=== PATIENT | male | born 1930 | race Caucasian/White ===

== ENCOUNTER → 2016-11-26 | Outpatient (CLI) | payer OTHER ==
[~2016-11-26] MED LIST: ASPEC81 PO; CALC600T9 PO; CIPR1TAB11 PO; CPR500 PO; CPR500HP PO; FIBER PO; FOLI1TAB7 PO; METO5TAB3 PO; METR-163 PO; MULT-506 PO; NUTR-977 PO; OMEP20TA PO; TAMS0.4C38 PO; TAMS0.4C59 PO; ULT50X PO; URSO300C4 PO; ZOLE5INJ
== END | disposition home or self-care (01) ==
LOC: C.LAB1850 13:51
PROVIDERS: ATTEND Internal Medicine Pulmonary Disease
DX: M34.1 CR(E)ST syndrome (principal); J84.10 Pulmonary fibrosis, unspecified

== ENCOUNTER 2016-12-11 16:44 | Emergency (ER) | payer OTHER ==
[~2016-12-11] VITALS: Ht 162.6 cm; Wt 66.8 kg
[~2016-12-11 16:44] MED LIST changes: -ASPEC81 PO; -CIPR1TAB11 PO; -CPR500 PO; -CPR500HP PO; -METO5TAB3 PO; -METR-163 PO; -TAMS0.4C38 PO; -ULT50X PO
[2016-12-11 16:47] VITALS: TEMP 36.7; Ht 162.6 cm; Wt 66.8 kg
--- NOTE | 2016-12-11 17:20 | EMERGENCY ROOM VISIT NOTE ---
History Report prepared by Wale: Kwabena Cesar Under the Supervision of: Dr. Edith Lynne M.D. First contact with patient: 16:57 Chief Complaint: ABDOMINAL PAIN Stated Complaint: R SIDE ABD. PAIN, NAUSEA, PAIN RADIATED TO CHEST History of Present Illness The patient is an 86 year old male who presents to the Emergency Room with complaints of an episode of abdominal pain that occurred around 4 hours ago. He says he has trouble with his liver, and today was another "attack". The patient notes that he was lying down when the pain started, and the pain shortly started radiating into his chest. He says the pain went away fairly quickly. He was sitting on his commode for a while during the episode, as he thought he had to go to the bathroom, but he could not. The patient currently has no more pain. He states that he knows what this pain feels like and this is similar to previous episodes of pain he had due to his liver troubles. The patient denies any fevers. Per the patient's family, the patient has a history of biliary sludge and gall stones. The patient tends to get clogged up every 6 months, and he has an ERCP done every 6 months to get cleaned out. During the last 2 episodes, the patient ended up going septic. The patient had a culture of his blood and bacteria was found. He had an infection near the opening of his bile duct into his intestine and was hospitalized both times. During his last episode , a PICC line was attempted to be inserted, but the doctors were unable to do so. The patient was in intensive nursing for 10 days and there was trouble figuring out which antibiotic to use. Source of History: patient, family Onset: Around 4 hours ago Position: abdomen Symptom Intensity: episode was fairly quick Timing: other (episode) Associated Symptoms: + chest pain, No fevers Note: Associated symptoms: No other associated symptoms noted. Review of Systems See HPI for pertinent positives & negatives. A total of 10 systems reviewed and were otherwise negative. Past Medical & Surgical Medical Problems: (1) Acid reflux (2) Anemia (3) bactremia with G neg , source is likely biliary track infection, (4) CREST syndrome (5) Pancreatitis (6) Repair of inguinal hernia (7) RUQ abdominal pain Surgical Problems: (1) History of appendectomy (2) History of cholecystectomy (3) History of knee replacement Family History Diabetes mellitus Stroke Social History Smoking Status: Never Smoker Alcohol Use: none Drug Use: none Marital Status: Housing Status: lives with family Occupation Status: retired Current/Historical Medications Scheduled Calcium Carbonate-Vitamin D (Calcium + D), 1 TAB PO DAILY Enteral Nutrition Formula (Ensure Plus Vanilla), 1 CAN PO DAILY Folic Acid (Folvite), 1 MG PO QAM Multivitamin (Multivitamin), 1 TAB PO QAM Omeprazole (Omeprazole), 20 MG PO BID Tamsulosin Hcl (Flomax), 0.4 MG PO HS Ursodiol (Actigall), 300 MG PO BID Zoledronic Acid (Reclast), 1 DOSE YEARLY Scheduled PRN Ciprofloxacin (Ciprofloxacin HCl), 1 TAB PO DIRECTED PRN for Pain Fiber Laxative (Fiber Laxative), 1 DOSE PO DAILY PRN for Constipation Allergies Coded Allergies: Penicillins (Verified Allergy, Unknown, UNKNOWN, 12/11/16) Physical Exam Vital Signs Date Time Temp Pulse Resp B/P Pulse Ox O2 Delivery O2 Flow Rate FiO2 12/11/16 19:47 70 20 158/90 97 12/11/16 18:50 68 20 148/76 93 Room Air 12/11/16 16:47 36.7 88 18 153/90 94 Room Air Physical Exam CONSTITUTIONAL: No acute distress, nontoxic. HEENT: No icterus, moist mucous membranes NECK: No meningismus, trachea is midline. CARDIOVASCULAR: Regular rate, normal perfusion RESPIRATORY: Unlabored breathing. Clear to auscultation. GASTROINTESTINAL: Non-tender GENITOURINARY: No flank tenderness MUSCULOSKELETAL: Full range of motion NEUROLOGIC: No acute gross focal deficits. PSYCHIATRIC: Normal affect SKIN: Normal for ethnicity. Medical Decision & Procedures Laboratory Results 12/11/16 17:38 Red Blood Count 4.36, Mean Corpuscular Volume 90.1, Mean Corpuscular Hemoglobin 29.6, Mean Corpuscular Hemoglobin Concent 32.8, Mean Platelet Volume 9.6, Neutrophils (%) (Auto) 62.2, Lymphocytes (%) (Auto) 18.3, Monocytes (%) (Auto) 13.7, Eosinophils (%) (Auto) 5.0, Basophils (%) (Auto) 0.5, Neutrophils # (Auto ) 4.08, Lymphocytes # (Auto) 1.20, Monocytes # (Auto) 0.90, Eosinophils # (Auto ) 0.33, Basophils # (Auto) 0.03 Test 12/11/16 17:38 12/11/16 18:19 White Blood Count 6.56 K/uL (4.8-10.8) Red Blood Count 4.36 M/uL (4.7-6.1) Hemoglobin 12.9 g/dL (14.0-18.0) Hematocrit 39.3 % (42-52) Mean Corpuscular Volume 90.1 fL (80-100) Mean Corpuscular Hemoglobin 29.6 pg (25-34) Mean Corpuscular Hemoglobin Concent 32.8 g/dl (32-36) Platelet Count 245 K/uL (130-400) Mean Platelet Volume 9.6 fL (7.4-10.4) Neutrophils (%) (Auto) 62.2 % Lymphocytes (%) (Auto) 18.3 % Monocytes (%) (Auto) 13.7 % Eosinophils (%) (Auto) 5.0 % Basophils (%) (Auto) 0.5 % Neutrophils # (Auto) 4.08 K/uL (1.4-6.5) Lymphocytes # (Auto) 1.20 K/uL (1.2-3.4) Monocytes # (Auto) 0.90 K/uL (0.11-0.59) Eosinophils # (Auto) 0.33 K/uL (0-0.5) Basophils # (Auto) 0.03 K/uL (0-0.2) RDW Standard Deviation 54.4 fL (36.4-46.3) RDW Coefficient of Variation 16.4 % (11.5-14.5) Immature Granulocyte % (Auto) 0.3 % Immature Granulocyte # (Auto) 0.02 K/uL (0.00-0.02) Total Bilirubin 0.5 mg/dl (0.2-1) Direct Bilirubin 0.1 mg/dl (0-0.2) Aspartate Amino Transf (AST/SGOT) 40 U/L (15-37) Alanine Aminotransferase (ALT/SGPT) 26 U/L (12-78) Alkaline Phosphatase 65 U/L (45-117) C-Reactive Protein < 0.29 mg/dl (0-0.29) Total Protein 6.9 gm/dl (6.4-8.2) Albumin 3.6 gm/dl (3.4-5.0) Lipase 170 U/L (73-393) Procalcitonin < 0.05 ng/mL (0-0.5) Urine Color YELLOW Urine Appearance CLEAR (CLEAR) Urine pH 6.0 (4.5-7.5) Urine Specific [place] 1.012 (1.000-1.030) Urine Protein NEG (NEG) Urine Glucose (UA) NEG (NEG) Urine Ketones NEG (NEG) Urine Occult Blood NEG (NEG) Urine Nitrite NEG (NEG) Urine Bilirubin NEG (NEG) Urine Urobilinogen NEG (NEG) Urine Leukocyte Esterase NEG (NEG) Labs reviewed by ED physician. ED Course 1705: Past medical records reviewed. The patient was evaluated in room C3. A complete history and physical examination was performed. 1921: I reevaluated the patient and he is resting comfortably. The patient verbally expressed agreement and understanding of the treatment plan. The patient will be discharged. Medical Decision Differential diagnoses include: sepsis, biliary disease. 86-year-old was brought to the emergency department by family for concern over potential bacteremia or biliary complications. He is noted to have a history of crest as well as bacteremia secondary to sludging of the biliary system. He noted of the nonspecific discomfort of the right upper quadrant earlier today which is now resolved. He appears in no distress with no abdominal tenderness on serial exam the emergency room. Given clinical context and family's concerns around patient's history and labwork including CRP and pro calcitonin were ordered. It is noted the CBC as well as differential, pro calcitonin CRP were all completely normal and patient remained without any symptomatic complaints during emergency Department course was benign abdomen prior to discharge., Given copy of today's laboratory results advised to follow-up with primary care doctor or return for any worsening or worrisome symptoms. Impression Primary Impression: CREST syndrome Scribe Attestation The scribe's documentation has been prepared under my direction and personally reviewed by me in its entirety. I confirm that the note above accurately reflects all work, treatment, procedures, and medical decision making performed by me. Departure Information Dispostion Home / Self-Care Referrals Román Miranda M.D. (PCP) Forms HOME CARE DOCUMENTATION FORM, IMPORTANT VISIT INFORMATION Patient Instructions Abdominal Pain - [facility], [facility]
[2016-12-11] MEDS ORDERED: CPR500HP PO (17:57)
[2016-12-11 18:16] LABS: BASO % 0.5 %; BASO ABS # 0.03 K/uL (0-0.2); COMPLETE YES; HEMATOCRIT 39.3 % (42-52); IG% 0.3 %; LYMPH % 18.3 %; MEAN CELL VOLUME 90.1 fL (80-100); MEAN CORPUSCULAR HEMOGLOBIN 29.6 pg (25-34); MEAN CORPUSCULAR HGB CONC 32.8 g/dl (32-36); MEAN PLATELET VOLUME 9.6 fL (7.4-10.4); MONO % 13.7 %; NEUT % 62.2 %; PLATELET COUNT 245 K/uL (130-400); RED BLOOD COUNT 4.36 M/uL (4.7-6.1); WHITE BLOOD COUNT 6.56 K/uL (4.8-10.8)
[2016-12-11 18:38] LABS: ALKALINE PHOSPHATASE 65 U/L (45-117); ALT/SGPT 26 U/L (12-78); AST/SGOT 40 U/L (15-37); C-REACTIVE PROTEIN < 0.29 mg/dl (0-0.29)
[2016-12-11 18:40] LABS: URINE APPEARANCE CLEAR (CLEAR); URINE BILIRUBIN NEG (NEG); URINE COLOR YELLOW; URINE NITRITE NEG (NEG); URINE SPECIFIC GRAVITY 1.012 (1.000-1.030); UROBILINOGEN NEG (NEG); ZZUR CULT IF INDIC CLEAN CATCH NO
[2016-12-11 18:48] LABS: MANUAL MICROSCOPIC REQUIRED? NO; REVIEW REQ? NO
[2016-12-11 19:47] VITALS: BP 158/90; PULSE 70; O2SAT 97
[2017-07-23] MEDS ORDERED: METR-163 PO (14:30)
[2017-07-23] MEDS ORDERED: CPR500 PO (14:30)
== END 2016-12-11 19:51 | disposition home or self-care (01) ==
LOC: C.EDB 16:46 → C.EDC 19:51
DX: M34.1 CR(E)ST syndrome (principal); Z90.89 Acquired absence of other organs; Z90.49 Acquired absence of other specified parts of digestive tract; Z96.659 Presence of unspecified artificial knee joint; Z83.3 Family history of diabetes mellitus; Z82.3 Family history of stroke; Z88.0 Allergy status to penicillin

== ENCOUNTER 2017-01-26 12:37 | Inpatient (IN) | payer OTHER ==
[~2017-01-26] VITALS: Ht 162.6 cm; Wt 64.0 kg
[~2017-01-26 12:37] MED LIST changes: +CPR500HP PO
[2017-01-26] MEDS ORDERED: SODIUM CHLORIDE 0.9% 1000ML 1,000 ML IV SCH (13:15)
[2017-01-26 13:22] LABS: URINE APPEARANCE CLEAR (CLEAR); URINE BILIRUBIN NEG (NEG); URINE COLOR YELLOW; URINE NITRITE NEG (NEG); URINE SPECIFIC GRAVITY 1.014 (1.000-1.030); UROBILINOGEN NEG (NEG); ZZUR CULT IF INDIC CLEAN CATCH NO
[2017-01-26 13:27] LABS: MANUAL MICROSCOPIC REQUIRED? NO; REVIEW REQ? NO
--- NOTE | 2017-01-26 13:30 | EMERGENCY ROOM VISIT NOTE ---
History Report prepared by Wale: Judie Garsia Under the Supervision of: Dr. Luis Newell D.O. First contact with patient: 12:42 Chief Complaint: VOMITING Stated Complaint: CHILLS, VOMITING, NAUSEA Nursing Triage Summary: Triage Note: Pt reports since yesterday he has had a sensation in his right lower abd "it is uncomfortable it is not pain." pt reports nausea and vomitting. daughter reports yesterday pt told her he had "indigestion." History of Present Illness The patient is a 86 year old male who presents to the Emergency Room with complaints of intermittent vomiting beginning yesterday. The patient reports that he has had some discomfort in his lower right abdomen. The patient complains of nausea, chills, indigestion, ongoing cough for a few months, and right sided chest pain yesterday. He denies any diarrhea and blood in the stool. The patient's daughter reports that the patient recently had an ERCP to dilate the bile duct. She notes that he has a history of osteoporosis, pancreatitis, cholecystectomy, sludgy bile, appendectomy, and gallstones that he has had trouble with recently. He notes that he is not having any nausea or pain currently. Source of History: patient, family Onset: yesterday Position: other (global) Quality: other (vomiting) Timing: intermittent Associated Symptoms: + chest pain, + chills, + cough, + nausea, No diarrhea Note: The patient complains of indigestion. He denies any blood in the stool. Review of Systems See above for pertinent positives & negatives. A total of 10 systems reviewed and were otherwise negative. Past Medical & Surgical Medical Problems: (1) Acid reflux (2) Anemia (3) bactremia with G neg , source is likely biliary track infection, (4) CREST syndrome (5) Pancreatitis (6) Repair of inguinal hernia (7) RUQ abdominal pain Surgical Problems: (1) History of appendectomy (2) History of cholecystectomy (3) History of knee replacement Family History Diabetes mellitus Stroke Social History Smoking Status: Never Smoker Alcohol Use: none Drug Use: none Marital Status: Housing Status: lives with family Occupation Status: retired Current/Historical Medications Scheduled Calcium Carbonate-Vitamin D (Calcium + D), 1 TAB PO DAILY Enteral Nutrition Formula (Ensure Plus Vanilla), 1 CAN PO DAILY Folic Acid (Folvite), 1 MG PO QAM Multivitamin (Multivitamin), 1 TAB PO QAM Omeprazole (Omeprazole), 20 MG PO BID Tamsulosin Hcl (Flomax), 0.4 MG PO HS Ursodiol (Actigall), 300 MG PO BID Zoledronic Acid (Reclast), 1 DOSE YEARLY Scheduled PRN Ciprofloxacin (Ciprofloxacin HCl), 1 TAB PO DIRECTED PRN for Pain Fiber Laxative (Fiber Laxative), 1 DOSE PO DAILY PRN for Constipation Allergies Coded Allergies: Penicillins (Verified Allergy, Unknown, UNKNOWN, 12/11/16) Physical Exam Vital Signs Date Time Temp Pulse Resp B/P Pulse Ox O2 Delivery O2 Flow Rate FiO2 01/26/17 14:13 96 18 147/88 96 Room Air 01/26/17 13:44 93 01/26/17 12:44 37.1 81 18 148/61 100 Room Air Medical Decision & Procedures ER Provider Diagnostic Interpretation: X ray results and stated below per my interpretation and radiologist interpretation. ABDOMEN 2VIEW W/PA CHEST RTN FINDINGS: The heart is mildly enlarged. There is aortic tortuosity/ectasia. There is interstitial pleural fibrosis. There is no acute lobar consolidation. There are no pleural effusions. There is no overt failure. IMPRESSION: Interstitial fibrotic changes, likely chronic. No evidence of acute parenchymal consolidation Electronically signed by: Charly Duran M.D. 01/26/2017 2:28 PM Dictated Date/Time: 01/26/2017 2:28 PM Laboratory Results 01/26/17 13:20 Red Blood Count 4.76, Mean Corpuscular Volume 87.6, Mean Corpuscular Hemoglobin 29.2, Mean Corpuscular Hemoglobin Concent 33.3, Mean Platelet Volume 9.2, Neutrophils (%) (Auto) 93.2, Lymphocytes (%) (Auto) 3.3, Monocytes (%) (Auto) 3.1, Eosinophils (%) (Auto) 0.1, Basophils (%) (Auto) 0.1, Neutrophils # (Auto) 8.82, Lymphocytes # (Auto) 0.31, Monocytes # (Auto) 0.29, Eosinophils # (Auto) 0.01, Basophils # (Auto) 0.01 01/26/17 13:20 Test 01/26/17 12:56 01/26/17 13:20 Urine Color YELLOW Urine Appearance CLEAR (CLEAR) Urine pH 7.0 (4.5-7.5) Urine Specific [place] 1.014 (1.000-1.030) Urine Protein NEG (NEG) Urine Glucose (UA) NEG (NEG) Urine Ketones NEG (NEG) Urine Occult Blood NEG (NEG) Urine Nitrite NEG (NEG) Urine Bilirubin NEG (NEG) Urine Urobilinogen NEG (NEG) Urine Leukocyte Esterase NEG (NEG) White Blood Count 9.46 K/uL (4.8-10.8) Red Blood Count 4.76 M/uL (4.7-6.1) Hemoglobin 13.9 g/dL (14.0-18.0) Hematocrit 41.7 % (42-52) Mean Corpuscular Volume 87.6 fL (80-100) Mean Corpuscular Hemoglobin 29.2 pg (25-34) Mean Corpuscular Hemoglobin Concent 33.3 g/dl (32-36) Platelet Count 244 K/uL (130-400) Mean Platelet Volume 9.2 fL (7.4-10.4) Neutrophils (%) (Auto) 93.2 % Lymphocytes (%) (Auto) 3.3 % Monocytes (%) (Auto) 3.1 % Eosinophils (%) (Auto) 0.1 % Basophils (%) (Auto) 0.1 % Neutrophils # (Auto) 8.82 K/uL (1.4-6.5) Lymphocytes # (Auto) 0.31 K/uL (1.2-3.4) Monocytes # (Auto) 0.29 K/uL (0.11-0.59) Eosinophils # (Auto) 0.01 K/uL (0-0.5) Basophils # (Auto) 0.01 K/uL (0-0.2) RDW Standard Deviation 52.5 fL (36.4-46.3) RDW Coefficient of Variation 16.3 % (11.5-14.5) Immature Granulocyte % (Auto) 0.2 % Immature Granulocyte # (Auto) 0.02 K/uL (0.00-0.02) Red Blood Cell Morphology Unremarkable Anion Gap 13.0 mmol/L (3-11) Est Creatinine Clear Calc Drug Dose 45.5 ml/min Estimated GFR () 83.6 Estimated GFR (Non- 72.1 BUN/Creatinine Ratio 17.1 (10-20) Calcium Level 9.3 mg/dl (8.5-10.1) Total Bilirubin 2.6 mg/dl (0.2-1) Direct Bilirubin 1.4 mg/dl (0-0.2) Aspartate Amino Transf (AST/SGOT) 545 U/L (15-37) Alanine Aminotransferase (ALT/SGPT) 255 U/L (12-78) Alkaline Phosphatase 137 U/L (45-117) Troponin I < 0.015 ng/ml (0-0.045) Total Protein 7.5 gm/dl (6.4-8.2) Albumin 3.7 gm/dl (3.4-5.0) Lipase 170 U/L (73-393) Hepatitis B Surface Antigen NEG (NEG) Laboratory results as reviewed by me. Medications Administered Medications (Trade) Dose Ordered Sig/Alycia Route Start Time Stop Time Status Last Admin Dose Admin Sodium Chloride (Nss 1000ml) 1,000 ml @ 999 mls/hr Q1H1M IV 01/26/17 13:15 01/26/17 14:54 DC 01/26/17 13:26 999 MLS/HR ECG Indication: chest pain Rate (beats per minute): 100 Rhythm: sinus tachycardia Findings: nonspecific-ST abn (Inferior), left axis deviation ED Course 1250: The patient was evaluated in room C7. A complete history and physical exam was performed. 1315: Sodium Chloride 1000 ml @ 999 mls/hr IV. Medical Decision Differential diagnosis: Etiologies such as appendicitis, diverticulitis, PUD, biliary pathology, UTI, pancreatitis, obstruction, mesenteric ischemia, aortic pathology, infections, inflammatory bowel disease, renal colic, as well as others were entertained. 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 He was recently seen for an ERCP last week, he presents today with a complaint of generalized fatigue and nausea with occasional vomiting. Laboratory examination today revealed transaminitis concerning for ascending cholangitis, this point I have obtained a ultrasound of the abdomen, administered Zosyn 4.5 mg, and consult to Dr. Tomlin of [facility], and personally spoke with his PA regarding evaluation today in the hospital. I discussed the case with Dr. Gabriel Kedum of the hospitalist team who will admit the patient. Impression Primary Impression: Cholangitis Additional Impressions: Hx of cholecystectomy Nausea, vomiting, and diarrhea Scribe Attestation The scribe's documentation has been prepared under my direction and personally reviewed by me in its entirety. I confirm that the note above accurately reflects all work, treatment, procedures, and medical decision making performed by me. Departure Information Dispostion Being Evaluated By Hospitalist Referrals Román Miranda M.D. (PCP) Patient Instructions My [facility] Problem Qualifiers
[2017-01-26 13:42] LABS: HEMATOCRIT 41.7 % (42-52); MEAN CELL VOLUME 87.6 fL (80-100); MEAN CORPUSCULAR HEMOGLOBIN 29.2 pg (25-34); MEAN CORPUSCULAR HGB CONC 33.3 g/dl (32-36); MEAN PLATELET VOLUME 9.2 fL (7.4-10.4); PLATELET COUNT 244 K/uL (130-400); RED BLOOD COUNT 4.76 M/uL (4.7-6.1); WHITE BLOOD COUNT 9.46 K/uL (4.8-10.8)
[2017-01-26 14:00] LABS: ALT/SGPT 255 U/L (12-78); BLOOD UREA NITROGEN 16 mg/dl (7-18); BUN/CREATININE RATIO 17.1 (10-20); CALCIUM 9.3 mg/dl (8.5-10.1); CARBON DIOXIDE 25 mmol/L (21-32); CHLORIDE 102 mmol/L (98-107); CREATININE 0.94 mg/dl (0.60-1.40); GLUCOSE 112 mg/dl (70-99); SODIUM 140 mmol/L (136-145)
[2017-01-26 14:04] LABS: ALKALINE PHOSPHATASE 137 U/L (45-117); AST/SGOT 545 U/L (15-37)
[2017-01-26 14:07] LABS: BASO % 0.1 %; BASO ABS # 0.01 K/uL (0-0.2); COMPLETE YES; EOS % 0.1 %; IG% 0.2 %; LYMPH % 3.3 %; LYMPH ABS # 0.31 K/uL (1.2-3.4); MONO % 3.1 %; NEUT % 93.2 %
--- NOTE | 2017-01-26 14:30 | DIAGNOSTIC IMAGING REPORT ---
ABDOMEN 2VIEW W/PA CHEST RTN CLINICAL HISTORY: Nausea, vomiting, malaise. COMPARISON STUDY: 06/08/2016 FINDINGS: The heart is mildly enlarged. There is aortic tortuosity/ectasia. There is interstitial pleural fibrosis. There is no acute lobar consolidation. There are no pleural effusions. There is no overt failure. IMPRESSION: Interstitial fibrotic changes, likely chronic. No evidence of acute parenchymal consolidation Electronically signed by: Charly Duran M.D. 01/26/2017 2:28 PM Dictated Date/Time: 01/26/2017 2:28 PM
[2017-01-26] MEDS ORDERED: TAMS0.4C38 PO (14:58)
[2017-01-26] MEDS ORDERED: PIPERACILLIN/TAZOBACTAM 4.5 GM/100ML D5W IV STA (15:14)
--- NOTE | 2017-01-26 15:47 | DIAGNOSTIC IMAGING REPORT ---
ULTRASOUND RIGHT UPPER QUADRANT ABDOMEN CLINICAL HISTORY: Elevated hepatic transaminases. COMPARISON STUDY: Abdominal CT dated 05/27/2015. TECHNIQUE: Real-time, grayscale, and color flow sonography of the right upper quadrant of the abdomen was performed. Images are reviewed in the transverse and longitudinal planes. FINDINGS: Liver: The liver is normal in size and echotexture. There is mild central intrahepatic biliary ductal dilatation. Linear echogenic foci within the liver likely represent pneumobilia. The main portal vein is patent. Gallbladder: The gallbladder is surgically absent. The common bile duct measures up to 1.3 cm in diameter. Pancreas: Not well visualized due to overlying bowel gas. Right kidney: Survey images of the right kidney demonstrate mild cortical atrophy. There is no hydronephrosis. Ascites: None. IMPRESSION: 1. No acute sonographic abnormality is identified. 2. There is intra and extrahepatic biliary ductal dilatation as well as pneumobilia. This is similar to the 05/27/2015 examination. 3. The pancreas was not well visualized due to overlying bowel gas. Electronically signed by: Donal Stout M.D. 01/26/2017 3:46 PM Dictated Date/Time: 01/26/2017 3:43 PM
--- NOTE | 2017-01-26 16:45 | History and Physical ---
History & Physical Date & Time of Service: Jan 26, 2017 at 16:34 Chief Complaint: Chills, Vomiting, Nausea Primary Care Physician: Román Miranda M.D. History of Present Illness Source: patient, family 86 y/o M w/Hx Scleroderma and CREST, cholecystectomy 2012, recurrent cholangitis. Pt has had multiple ERCPs with recent sphincterotomy due bile dust sludging/obstruction. He presents with intermittent abdominal pain, nausea , an episode of vomiting and rigors starting 1 day prior. His pain is described as RUQ or epigastric. Initial labs are notable for progressive LFT elevations. The pt was evaluated by the GI service in the ER and will likely proceed for ERCP and stenting AM. Past Medical/Surgical History Medical Problems: (1) Anemia Status: Chronic (2) CREST syndrome Status: Chronic (3) Pancreatitis Status: Chronic (4) Repair of inguinal hernia Status: Resolved 4) Recurrent cholangitis with biliary stenting and sphincterotomy Surgical Problems: (1) History of appendectomy Status: Resolved Family History Diabetes mellitus Stroke Social History Smoking Status: Never Smoker Drug Use: none Marital Status: Occupational Status: retired Immunizations History of Influenza Vaccine: N/A History of Tetanus Vaccine?: Yes Tetanus Immunization Date: May 05, 2013 History of Pneumococcal: Yes Pneumococcal Date: Sep 04, 2012 History of Hepatitis B Vaccine: No Allergies Coded Allergies: Penicillins (Verified Allergy, Unknown, UNKNOWN, 12/11/16) Home Medications Scheduled Calcium Carbonate-Vitamin D (Calcium + D), 1 TAB PO DAILY Enteral Nutrition Formula (Ensure Plus Vanilla), 1 CAN PO DAILY Folic Acid (Folvite), 1 MG PO QAM Multivitamin (Multivitamin), 1 TAB PO QAM Omeprazole (Omeprazole), 20 MG PO BID Tamsulosin Hcl (Flomax), 0.4 MG PO HS Ursodiol (Actigall), 300 MG PO BID Zoledronic Acid (Reclast), 1 DOSE YEARLY Scheduled PRN Ciprofloxacin (Ciprofloxacin HCl), 1 TAB PO DIRECTED PRN for Pain Fiber Laxative (Fiber Laxative), 1 DOSE PO DAILY PRN for Constipation Review of Systems Constitutional: + chills, + fever, No sweats Eyes: No eye pain, No worsening of vision ENT: No hearing loss, No nasal symptoms, No unusual epistaxis Respiratory: No cough, No sputum, No wheezing Cardiovascular: No PND, No chest pain, No orthopnea Abdomen: + nausea, + pain, + vomiting, No constipation, No diarrhea Musculoskeletal: No joint pain, No muscle pain Genitourinary - Male: No dysuria, No hematuria Neurologic: + weakness, No memory loss, No paralysis Psychiatric: No anhedonism, No depression symptoms Endocrine: + fatigue, No excessive thirst Hematologic / Lymphatic: No abnormal bleeding/bruising, No clotting problems Integumentary: No itch, No rash Allergic / Immunologic: No environmental allergies Physical Exam Vital Signs Date Time Temp Pulse Resp B/P Pulse Ox O2 Delivery O2 Flow Rate FiO2 01/26/17 16:15 84 18 116/67 95 Room Air 01/26/17 14:13 96 18 147/88 96 Room Air 01/26/17 13:44 93 01/26/17 12:44 37.1 81 18 148/61 100 Room Air General Appearance: WD/WN, no apparent distress, + pertinent finding (thin elderly male in no acute distress) Head: normocephalic, atraumatic Eyes: normal inspection, PERRL, EOMI ENT: normal ENT inspection, hearing grossly normal, TMs normal, pharynx normal Neck: supple, no JVD Respiratory/Chest: chest non-tender, lungs clear, normal breath sounds Cardiovascular: regular rate, rhythm, no edema, no gallop, no JVD, no murmur, normal peripheral pulses Abdomen/GI: normal bowel sounds, non tender, soft, + pertinent finding (No tenderness to palpation is appreciated) Back: normal inspection, no CVA tenderness, no muscle spasm, normal range of motion Extremities/Musculoskelatal: normal inspection, no calf tenderness, normal capillary refill Neurologic/Psych: sponge clipper II-XII nml as tested, no motor/sensory deficits, alert, normal mood/affect, normal reflexes, oriented x 3 Skin: normal color, warm/dry, no rash Diagnostics Laboratory Results Results Past 24 Hours Test 01/26/17 12:56 01/26/17 13:20 Range/Units Urine Color YELLOW Urine Appearance CLEAR CLEAR Urine pH 7.0 4.5-7.5 Urine Specific [place] 1.014 1.000-1.030 Urine Protein NEG NEG Urine Glucose (UA) NEG NEG Urine Ketones NEG NEG Urine Occult Blood NEG NEG Urine Nitrite NEG NEG Urine Bilirubin NEG NEG Urine Urobilinogen NEG NEG Urine Leukocyte Esterase NEG NEG White Blood Count 9.46 4.8-10.8 K/uL Red Blood Count 4.76 4.7-6.1 M/uL Hemoglobin 13.9 14.0-18.0 g/dL Hematocrit 41.7 42-52 % Mean Corpuscular Volume 87.6 80-100 fL Mean Corpuscular Hemoglobin 29.2 25-34 pg Mean Corpuscular Hemoglobin Concent 33.3 32-36 g/dl Platelet Count 244 130-400 K/uL Mean Platelet Volume 9.2 7.4-10.4 fL Neutrophils (%) (Auto) 93.2 % Lymphocytes (%) (Auto) 3.3 % Monocytes (%) (Auto) 3.1 % Eosinophils (%) (Auto) 0.1 % Basophils (%) (Auto) 0.1 % Neutrophils # (Auto) 8.82 1.4-6.5 K/uL Lymphocytes # (Auto) 0.31 1.2-3.4 K/uL Monocytes # (Auto) 0.29 0.11-0.59 K/uL Eosinophils # (Auto) 0.01 0-0.5 K/uL Basophils # (Auto) 0.01 0-0.2 K/uL RDW Standard Deviation 52.5 36.4-46.3 fL RDW Coefficient of Variation 16.3 11.5-14.5 % Immature Granulocyte % (Auto) 0.2 % Immature Granulocyte # (Auto) 0.02 0.00-0.02 K/uL Red Blood Cell Morphology Unremarkable Sodium Level 140 136-145 mmol/L Potassium Level 4.0 3.5-5.1 mmol/L Chloride Level 102 98-107 mmol/L Carbon Dioxide Level 25 21-32 mmol/L Anion Gap 13.0 3-11 mmol/L Blood Urea Nitrogen 16 7-18 mg/dl Creatinine 0.94 0.60-1.40 mg/dl Est Creatinine Clear Calc Drug Dose 45.5 ml/min Estimated GFR () 83.6 Estimated GFR (Non- 72.1 BUN/Creatinine Ratio 17.1 10-20 Random Glucose 112 70-99 mg/dl Calcium Level 9.3 8.5-10.1 mg/dl Total Bilirubin 2.6 0.2-1 mg/dl Direct Bilirubin 1.4 0-0.2 mg/dl Aspartate Amino Transf (AST/SGOT) 545 15-37 U/L Alanine Aminotransferase (ALT/SGPT) 255 12-78 U/L Alkaline Phosphatase 137 45-117 U/L Troponin I < 0.015 0-0.045 ng/ml Total Protein 7.5 6.4-8.2 gm/dl Albumin 3.7 3.4-5.0 gm/dl Lipase 170 73-393 U/L Hepatitis B Surface Antigen NEG NEG Hepatitis C Antibody NEG NEG Diagnostic Radiology US abd: 1. No acute sonographic abnormality is identified. 2. There is intra and extrahepatic biliary ductal dilatation as well as pneumobilia. This is similar to the 05/27/2015 examination. 3. The pancreas was not well visualized due to overlying bowel gas. Impression Assessment and Plan 86 y/o M w/Hx Scleroderma and CREST, cholecystectomy 2012, recurrent cholangitis. Pt has had multiple ERCPs with recent sphincterotomy due bile dust sludging/obstruction. He presents with intermittent abdominal pain, nausea , an episode of vomiting and rigors starting 1 day prior. His pain is described as RUQ or epigastric. Initial labs are notable for progressive LFT elevations. The pt was evaluated by the GI service in the ER and will likely proceed for ERCP and stenting AM. Pt will be scheduled for AM ERCP and will likely require stenting as he failed a previous ERCP/sphincterotomy. We have placed him on antibiotics due to likely fevers - describes rigors. Discussed case with GI service. Cont Actigall. Above discussed with resident , GI . ER attending - full resident note on chart Level of Care Med/Surg Resuscitation Status DO NOT RESUSCITATE VTE Prophylaxis Given or contraindicated: SCD's
[2017-01-26 17:00] VITALS: O2SAT 95; Ht 162.6 cm; Wt 64.0 kg
[2017-01-26] MEDS ORDERED: MAGNESIUM HYDROXIDE SUSP 30 ML UDC PO PRN (17:00)
[2017-01-26] MEDS ORDERED: ALUMINUM/MAGNESIUM/SIMETH (MAALOX MAX) 30 ML UDC PO PRN (17:00)
[2017-01-26] MEDS ORDERED: ACETAMINOPHEN 325 MG TAB PO PRN (17:00)
[2017-01-26] MEDS ORDERED: POLYETHYLENE (MIRALAX) 17 GM PACK PO PRN (17:00)
[2017-01-26] MEDS ORDERED: ONDANSETRON INJ 2 MG/ML 2 ML VIAL IV PRN (17:00)
--- NOTE | 2017-01-26 17:12 | Gastrointestinal Consultation ---
Gastrointestinal Consultation Date of Consultation: Jan 26, 2017 Attending Physician: Medicine Consulting Physician: Dr. Tomlin Reason for Consultation: Cholangitis History of Present Illness Patient is a 86 year old male with PMHx of Scleroderma and CREST, hx of cholecystectomy well known to Dr. Moore having had multiple ERCPs with sphincterotomy due to choledocholithiasis/sludge, most recent ERCP 01/11/17 readmitted with similar sx for which GI is consulted. Pt admits to chills and some indigestion with nausea but denies abdominal pain or vomiting. Pt's family is at bedside, noting he's had at least 6-7 ERCPs in the past, he was admitted to this facility 05/2016 with gram negative bacteremia (E. coli) and had ERCP that admission as well. Family notes he has not gotten the classic RUQ pain, N/V as he did in past. ED work up reveals elevated transaminases (AST 545, ALT 255), T bili 2.6, WBC 9.46, hgb stable in 13 range. Chest/Abdominal films negative for acute process. US of abdomen confirms intra/extrahepatic ductal dilation, CBD 1.3 cm with pneumobilia. Pt examined in ER, currently resting comfortably in NAD with family at bedside. Past Medical/Surgical History Medical Problems: (1) Bilirubinemia Status: Acute (2) Cholangitis Status: Acute (3) Cholangitis Status: Acute (4) Nausea, vomiting, and diarrhea Status: Acute (5) Transaminitis Status: Acute (6) Vomiting Status: Acute Social History Problems: (1) Hx of cholecystectomy Status: Acute Past Medical History: Scleroderma CREST Syndrome Hx recurrent cholangitis with choledocholithiasis s/p multiple ERCPs with sphincterotomies in past BPH Past Surgical History: multiple ERCPs with sphincterotomies Family History Diabetes mellitus Stroke Social History Smoking Status: Never Smoker Alcohol Use: none Drug Use: none Marital Status: Housing Status: lives with family Occupation Status: retired Allergies Coded Allergies: Penicillins (Verified Allergy, Unknown, itching w/ amoxicillin per [facility], 01/26/17) Current Medications Home Meds and Scripts Medications Dose Route/Sig Max Daily Dose Days Date Category Dose Instructions Flomax (Tamsulosin Hcl) 0.4 Mg Cap 0.4 Mg PO HS 01/26/17 Reported Ciprofloxacin HCl (Ciprofloxacin) 1 Homepack Ea 1 Tab PO DIRECTED PRN 12/11/16 Reported TAKE WHEN HAVING SYMPTOMS OF POSSIBLE BILE DUCT CLOGGED. Reclast (Zoledronic Acid) Unknown Strength Inj 1 Dose YEARLY 11/08/16 Reported Fiber Laxative (Fiber) Ea 1 Dose PO DAILY PRN 06/08/16 Reported WAFER Calcium + D (Calcium Carbonate-Vitamin D) 1 Tab Tab 1 Tab PO DAILY 06/08/16 Reported Ensure Plus Vanilla (Enteral Nutritional Formula) 1 Can Liqd 1 Can PO DAILY 11/07/15 Reported Actigall (Ursodiol) 300 Mg Cap 300 Mg PO BID 10/12/15 Reported Omeprazole 20 Mg Tab 20 Mg PO BID 07/01/13 Reported Multivitamin (Multivitamins) Tab 1 Tab PO QAM 07/01/13 Reported Folvite (Folic Acid) 1 Mg Tab 1 Mg PO QAM 07/01/13 Reported Review of Systems Constitutional: + chills, No weakness Eyes: No problem reported ENT: No pain on swallowing, No trouble swallowing Respiratory: No cough, No shortness of breath Cardiac: No chest pain, No edema Abdomen: + constipation, + nausea, + see HPI, No GI bleeding, No dark urine, No pain, No vomiting Musculoskeletal: No swelling Male : No dysuria Neuro: No problem reported Psych: No problem reported Heme: No problem reported Endo: No problem reported Skin: No jaundice, No rash Physical Exam Date Time Temp Pulse Resp B/P Pulse Ox O2 Delivery O2 Flow Rate FiO2 01/26/17 16:15 84 18 116/67 95 Room Air 01/26/17 14:13 96 18 147/88 96 Room Air 01/26/17 13:44 93 01/26/17 12:44 37.1 81 18 148/61 100 Room Air General Appearance: WD/WN, no apparent distress Eyes: normal inspection, PERRL ENT: normal ENT inspection, hearing grossly normal Neck: supple Respiratory/Chest: lungs clear, normal breath sounds, no respiratory distress Cardiovascular: regular rate, rhythm Abdomen: normal bowel sounds, non tender, soft, no organomegaly Extremities: non-tender, no pedal edema Neurologic/Psych: alert, normal mood/affect, oriented x 3 Skin: normal color, no jaundice Laboratory Results Last 24 Hours Test 01/26/17 12:56 01/26/17 13:20 Urine Color YELLOW Urine Appearance CLEAR Urine pH 7.0 Urine Specific [place] 1.014 Urine Protein NEG Urine Glucose (UA) NEG Urine Ketones NEG Urine Occult Blood NEG Urine Nitrite NEG Urine Bilirubin NEG Urine Urobilinogen NEG Urine Leukocyte Esterase NEG White Blood Count 9.46 K/uL Red Blood Count 4.76 M/uL Hemoglobin 13.9 g/dL Hematocrit 41.7 % Mean Corpuscular Volume 87.6 fL Mean Corpuscular Hemoglobin 29.2 pg Mean Corpuscular Hemoglobin Concent 33.3 g/dl Platelet Count 244 K/uL Mean Platelet Volume 9.2 fL Neutrophils (%) (Auto) 93.2 % Lymphocytes (%) (Auto) 3.3 % Monocytes (%) (Auto) 3.1 % Eosinophils (%) (Auto) 0.1 % Basophils (%) (Auto) 0.1 % Neutrophils # (Auto) 8.82 K/uL Lymphocytes # (Auto) 0.31 K/uL Monocytes # (Auto) 0.29 K/uL Eosinophils # (Auto) 0.01 K/uL Basophils # (Auto) 0.01 K/uL RDW Standard Deviation 52.5 fL RDW Coefficient of Variation 16.3 % Immature Granulocyte % (Auto) 0.2 % Immature Granulocyte # (Auto) 0.02 K/uL Red Blood Cell Morphology Unremarkable Sodium Level 140 mmol/L Potassium Level 4.0 mmol/L Chloride Level 102 mmol/L Carbon Dioxide Level 25 mmol/L Anion Gap 13.0 mmol/L Blood Urea Nitrogen 16 mg/dl Creatinine 0.94 mg/dl Est Creatinine Clear Calc Drug Dose 45.5 ml/min Estimated GFR () 83.6 Estimated GFR (Non- 72.1 BUN/Creatinine Ratio 17.1 Random Glucose 112 mg/dl Calcium Level 9.3 mg/dl Total Bilirubin 2.6 mg/dl Direct Bilirubin 1.4 mg/dl Aspartate Amino Transf (AST/SGOT) 545 U/L Alanine Aminotransferase (ALT/SGPT) 255 U/L Alkaline Phosphatase 137 U/L Troponin I < 0.015 ng/ml Total Protein 7.5 gm/dl Albumin 3.7 gm/dl Lipase 170 U/L Hepatitis B Surface Antigen NEG Hepatitis C Antibody NEG Impression Patient is a 86 year old male with hx of recurrent choledocholithiasis and hx of gram negative bacteremia requiring multiple ERCPs with sphincterotomies in past readmitted with chills and elevated LFTs Plan - likely recurrent choledocholithiasis despite no obvious filling defect on US - obtain blood cultures given hx of bacteremia - continue Zosyn - may have clear liquids tonight, then NPO after midnight - GI will reassess in AM and determine timing of ERCP ATTESTATION: I have performed a history and physical examination of this patient and reviewed the electronic record. Specifically, on physical examination the patient does not appear toxic. I have discussed the case with BECKA Skaggs. The above note reflects my findings, conclusions, and recommendations. Rory Tomlin MD
[2017-01-26 17:20] LABS: PROTHROMBIN TIME (PATIENT) 10.8 SECONDS (9.0-12.0)
--- NOTE | 2017-01-26 17:22 | History and Physical ---
History & Physical Date & Time of Service: Jan 26, 2017 at 16:56 Chief Complaint: Chills, Vomiting, Nausea Primary Care Physician: Román Miranda M.D. History of Present Illness Source: patient, family 86 yo M w/ hx of Gall stones, Ascending Cholangitis s/p multiple ERCP's ,s/p biliary stenting( placed sep 2015, removed 11/29/15 ), CREST syndrome (2007) , Interstitial Fibrosis (followed by Pulmonary). p/w 24 hx of n/v, chills . reports 1 episode of non-bloody vomitus, this AM fell progressive malaise, fatigue,lightheaded , 4/10 RUQ pain abdominal discomfort constant, no alleviating/aggravating factors, not associating with meals , 11:30 AM called daughter that he might need to go in to hospital. patient is poor historian, significant history gotten from daughter. Past Medical/Surgical History Medical Problems: (1) Anemia Status: Chronic (2) CREST syndrome Status: Chronic (3) Pancreatitis Status: Chronic (4) Repair of inguinal hernia Status: Resolved Surgical Problems: (1) History of appendectomy Status: Resolved Osteoporosis Lyme disease Sx Hx: Cholecystectomy Total Knee replacement Family History Diabetes mellitus Stroke Social History Smoking Status: Never Smoker Alcohol Use: none Drug Use: none Marital Status: Housing status: lives alone Occupational Status: retired Immunizations History of Influenza Vaccine: N/A History of Tetanus Vaccine?: Yes Tetanus Immunization Date: May 05, 2013 History of Pneumococcal: Yes Pneumococcal Date: Sep 04, 2012 History of Hepatitis B Vaccine: No Allergies Coded Allergies: Penicillins (Verified Allergy, Unknown, UNKNOWN, 12/11/16) Home Medications Scheduled Calcium Carbonate-Vitamin D (Calcium + D), 1 TAB PO DAILY Enteral Nutrition Formula (Ensure Plus Vanilla), 1 CAN PO DAILY Folic Acid (Folvite), 1 MG PO QAM Multivitamin (Multivitamin), 1 TAB PO QAM Omeprazole (Omeprazole), 20 MG PO BID Tamsulosin Hcl (Flomax), 0.4 MG PO HS Ursodiol (Actigall), 300 MG PO BID Zoledronic Acid (Reclast), 1 DOSE YEARLY Scheduled PRN Ciprofloxacin (Ciprofloxacin HCl), 1 TAB PO DIRECTED PRN for Pain Fiber Laxative (Fiber Laxative), 1 DOSE PO DAILY PRN for Constipation Review of Systems Constitutional: + chills, + fatigue, + weakness, No fever Respiratory: No cough, No shortness of breath, No sputum Cardiovascular: No chest pain, No edema, No palpitations Abdomen: + nausea, + pain, + vomiting, No GI bleeding, No constipation, No diarrhea Genitourinary - Male: No dysuria, No hematuria, No urinary frequency, No urinary urgency Integumentary: No color change, No itch, No rash Physical Exam Vital Signs Date Time Temp Pulse Resp B/P Pulse Ox O2 Delivery O2 Flow Rate FiO2 01/26/17 16:15 84 18 116/67 95 Room Air 01/26/17 14:13 96 18 147/88 96 Room Air 01/26/17 13:44 93 01/26/17 12:44 37.1 81 18 148/61 100 Room Air General Appearance: WD/WN, no apparent distress Head: normocephalic, atraumatic Eyes: normal inspection, PERRL, EOMI Neck: supple, no adenopathy, no JVD, trachea midline Respiratory/Chest: lungs clear, normal breath sounds, no respiratory distress Cardiovascular: regular rate, rhythm, no edema, no murmur Abdomen/GI: normal bowel sounds, soft, no organomegaly, + pertinent finding ( Mild RUQ tenderness to palpation) Extremities/Musculoskelatal: no calf tenderness, no pedal edema, non-tender Neurologic/Psych: alert, normal mood/affect Skin: normal color, warm/dry, no rash Diagnostics Laboratory Results Results Past 24 Hours Test 01/26/17 12:56 01/26/17 13:20 Range/Units Urine Color YELLOW Urine Appearance CLEAR CLEAR Urine pH 7.0 4.5-7.5 Urine Specific [place] 1.014 1.000-1.030 Urine Protein NEG NEG Urine Glucose (UA) NEG NEG Urine Ketones NEG NEG Urine Occult Blood NEG NEG Urine Nitrite NEG NEG Urine Bilirubin NEG NEG Urine Urobilinogen NEG NEG Urine Leukocyte Esterase NEG NEG White Blood Count 9.46 4.8-10.8 K/uL Red Blood Count 4.76 4.7-6.1 M/uL Hemoglobin 13.9 14.0-18.0 g/dL Hematocrit 41.7 42-52 % Mean Corpuscular Volume 87.6 80-100 fL Mean Corpuscular Hemoglobin 29.2 25-34 pg Mean Corpuscular Hemoglobin Concent 33.3 32-36 g/dl Platelet Count 244 130-400 K/uL Mean Platelet Volume 9.2 7.4-10.4 fL Neutrophils (%) (Auto) 93.2 % Lymphocytes (%) (Auto) 3.3 % Monocytes (%) (Auto) 3.1 % Eosinophils (%) (Auto) 0.1 % Basophils (%) (Auto) 0.1 % Neutrophils # (Auto) 8.82 1.4-6.5 K/uL Lymphocytes # (Auto) 0.31 1.2-3.4 K/uL Monocytes # (Auto) 0.29 0.11-0.59 K/uL Eosinophils # (Auto) 0.01 0-0.5 K/uL Basophils # (Auto) 0.01 0-0.2 K/uL RDW Standard Deviation 52.5 36.4-46.3 fL RDW Coefficient of Variation 16.3 11.5-14.5 % Immature Granulocyte % (Auto) 0.2 % Immature Granulocyte # (Auto) 0.02 0.00-0.02 K/uL Red Blood Cell Morphology Unremarkable Sodium Level 140 136-145 mmol/L Potassium Level 4.0 3.5-5.1 mmol/L Chloride Level 102 98-107 mmol/L Carbon Dioxide Level 25 21-32 mmol/L Anion Gap 13.0 3-11 mmol/L Blood Urea Nitrogen 16 7-18 mg/dl Creatinine 0.94 0.60-1.40 mg/dl Est Creatinine Clear Calc Drug Dose 45.5 ml/min Estimated GFR () 83.6 Estimated GFR (Non- 72.1 BUN/Creatinine Ratio 17.1 10-20 Random Glucose 112 70-99 mg/dl Calcium Level 9.3 8.5-10.1 mg/dl Total Bilirubin 2.6 0.2-1 mg/dl Direct Bilirubin 1.4 0-0.2 mg/dl Aspartate Amino Transf (AST/SGOT) 545 15-37 U/L Alanine Aminotransferase (ALT/SGPT) 255 12-78 U/L Alkaline Phosphatase 137 45-117 U/L Troponin I < 0.015 0-0.045 ng/ml Total Protein 7.5 6.4-8.2 gm/dl Albumin 3.7 3.4-5.0 gm/dl Lipase 170 73-393 U/L Hepatitis B Surface Antigen NEG NEG Hepatitis C Antibody NEG NEG Diagnostic Radiology ABDOMEN 2VIEW W/PA CHEST RTN CLINICAL HISTORY: Nausea, vomiting, malaise. COMPARISON STUDY: 06/08/2016 FINDINGS: The heart is mildly enlarged. There is aortic tortuosity/ectasia. There is interstitial pleural fibrosis. There is no acute lobar consolidation. There are no pleural effusions. There is no overt failure. IMPRESSION: Interstitial fibrotic changes, likely chronic. No evidence of acute parenchymal consolidation EKG Normal sinus rhythm Possible Left atrial enlargement Left axis deviation Impression Assessment and Plan 86 yo M w/ hx of Cholangitis s/p biliary stent placement and subsequent removal , hx of gall stones s/p cholecystectomy, p/w 24 hx of RUQ Abdominal discomfort , N/V, Chills Abdominal discomfort, N/V stable, improving abdominal discomfort, N/V resolved likely secondary to recurrence of cholangitis evidenced by previous history, previous removal of stents, elevated LFT's, Elevated Bilirubin Also Considered hepatitis based on elevated LFT's; Pancreatitis unlikely given normal lipase F/u complete viral Hep Panel, F/u CBC, LFT's GI on board Supected Cholangitis s/p multiple ERCP in 2011, Sep. 2014, May 2016 s/p biliary stenting sep 2015, removed 11/29/15 likely contributor to acute abdominal discomfort. elevated LFT's ERCP likely tmr, F/U GI report s/p zosyn in ED D/C zosyn Start Unasyn 3 grams q 6 Elevated LFTS likely due to cholangitis aguilar 2.6 AST 545 ALT 255 Alk phos 137 F/u Repeat LFT's CREST Syndrome: currently stable, no complaints not on medication at home GERD Restart Omeprazole Osteoporosis Restart Reclast Diet: Clears as per GI DVT Prophylaxis SCD's Disposition: Med/Surg Resuscitation status: DNR Advanced Directives Existing Advance Directive: Yes Resuscitation Status DO NOT RESUSCITATE VTE Prophylaxis VTE Risk Assessment Done? Y/N: Yes Risk Level: Low Given or contraindicated: SCD's Social Service Consult >80 yr.& Lives Alone Resident Tracking Resident Involvement: Resident Care Provided Care Provided: Adult Hospital Medicine
[2017-01-26] MEDS ORDERED: ZOLEDRONIC ACID IV SCH (18:15)
[2017-01-26] MEDS ORDERED: AMPICILLIN/SULBACTAM CONSULT ACTIVE PRN ×2 (18:45)
[2017-01-26 18:50] VITALS: BP 111/64; PULSE 71; TEMP 37.4; O2SAT 96
[2017-01-26] MEDS: ENOXAPARIN 40 MG/0.4 ML SYR SQ SCH (20:24)
[2017-01-26] MEDS: TAMSULOSIN HCL 0.4 MG CAP PO SCH (20:25)
[2017-01-26] MEDS: URSODIOL 300 MG CAP PO SCH (20:25)
[2017-01-26] MEDS: PANTOprazole SOD 40 MG TAB PO SCH (20:26)
[2017-01-26] MEDS: AMPICILLIN/SULBACTAM SOD INJ 3,000 MG in SODIUM CHLORIDE 0.9% 100ML 100 ML IV SCH (22:37)
[2017-01-26 23:25] VITALS: BP 99/64; PULSE 68; TEMP 37; O2SAT 94
[2017-01-27] MEDS: AMPICILLIN/SULBACTAM SOD INJ 3,000 MG in SODIUM CHLORIDE 0.9% 100ML 100 ML IV SCH ×4 (04:16→22:02)
[2017-01-27 06:19] LABS: HEMATOCRIT 37.4 % (42-52); MEAN CELL VOLUME 86.8 fL (80-100); MEAN CORPUSCULAR HGB CONC 33.4 g/dl (32-36); PLATELET COUNT 192 K/uL (130-400); RED BLOOD COUNT 4.31 M/uL (4.7-6.1); WHITE BLOOD COUNT 10.61 K/uL (4.8-10.8)
[2017-01-27 06:51] LABS: CALCIUM 8.5 mg/dl (8.5-10.1); CREATININE 0.86 mg/dl (0.60-1.40); POTASSIUM 3.8 mmol/L (3.5-5.1)
[2017-01-27 06:57] LABS: ALB/GLOB RATIO 0.9 (0.9-2)
[2017-01-27 07:09] VITALS: BP_SYST 83; BP_SYST 95; BP_DIAS 51; BP_DIAS 60; PULSE 76; TEMP 36.8; O2SAT 96
[2017-01-27 08:00] VITALS: O2SAT 96
--- NOTE | 2017-01-27 11:15 | Gastroenterology Progress Note ---
Progress Note Date of Service: Jan 27, 2017 Subjective Pt evaluation today including: conversation w/ patient, physical exam, chart review, lab review 86yo with hx cholangitis s/p multiple ERCPs admitted with recurrent chills and nausea. No new events overnight. Transaminases trending down but bili remains elevated Pt denies pain, nausea or vomiting hypotension noted overnight. hungry and would like something to eat as ERCP is planned for 7:15am 01/28/17. Review of Systems Constitutional: No fever Eyes: No problem reported ENT: No hearing loss Respiratory: No cough, No shortness of breath Cardiac: No chest pain Abdomen: + see HPI Musculoskeletal: No swelling Psych: No problem reported Heme: No problem reported Skin: No color change, No rash Medications Current Inpatient Medications Medications (Trade) Dose Ordered Sig/Alycia Route Start Time Stop Time Status Last Admin Dose Admin Enoxaparin Sodium (Lovenox Inj) 40 mg Q24H SQ 01/26/17 21:00 02/25/17 20:59 01/26/17 20:24 40 MG Acetaminophen (Tylenol Tab) 650 mg Q4H PRN PO 01/26/17 17:00 02/25/17 16:59 Al Hydrox/Mg Hydrox/Simethicone (Maalox Max Susp) 15 ml Q4H PRN PO 01/26/17 17:00 02/25/17 16:59 Magnesium Hydroxide (Milk Of Magnesia Susp) 30 ml Q6H PRN PO 01/26/17 17:00 02/25/17 16:59 Polyethylene (Miralax Powder Packet) 17 gm DAILY PRN PO 01/26/17 17:00 02/25/17 16:59 Ondansetron HCl 4 mg 4 mg Q6H PRN IV 01/26/17 17:00 02/25/17 16:59 Ampicillin Sodium/ Sulbactam Sodium/ Sodium Chloride (Unasyn Inj/Nss 100ml) 108 ml @ 200 mls/hr Q6H IV 01/26/17 22:00 02/05/17 21:59 01/27/17 04:16 200 MLS/HR Tamsulosin HCl (Flomax Cap) 0.4 mg HS PO 01/26/17 21:00 02/25/17 20:59 01/26/17 20:25 0.4 MG Ursodiol (Actigall Cap) 300 mg BID PO 01/26/17 21:00 02/25/17 20:59 01/26/17 20:25 300 MG Pantoprazole Sodium (Protonix Tab) 40 mg BID PO 01/26/17 21:00 02/25/17 20:59 01/26/17 20:26 40 MG Non-Formulary Medication (Zoledronic Acid (Reclast)) 1 dose YEARLY IV 01/26/17 18:15 02/25/17 18:14 Future Hold Ampicillin Sodium/ Sulbactam Sodium (Consult) 1 ea UD PRN N/A 01/26/17 18:45 02/25/17 18:44 Objective Vital Signs Date Time Temp Pulse Resp B/P Pulse Ox O2 Delivery O2 Flow Rate FiO2 01/27/17 08:00 96 Room Air 01/27/17 07:09 36.8 76 16 83/51 96 95/60 01/27/17 05:18 Room Air 01/27/17 00:00 Room Air 01/26/17 23:25 37.0 68 18 99/64 94 Room Air 01/26/17 18:50 37.4 71 20 111/64 96 Room Air 01/26/17 18:01 76 18 114/51 94 Room Air 01/26/17 17:00 95 Room Air 01/26/17 16:15 84 18 116/67 95 Room Air 01/26/17 14:13 96 18 147/88 96 Room Air 01/26/17 13:44 93 01/26/17 12:44 37.1 81 18 148/61 100 Room Air Physical Exam General Appearance: WD/WN, no apparent distress Eyes: normal inspection ENT: hearing grossly normal Neck: supple Respiratory/Chest: no respiratory distress, no accessory muscle use Cardiovascular: regular rate, rhythm Abdomen: normal bowel sounds, non tender, soft Extremities: no pedal edema Neurologic/Psych: alert, normal mood/affect, oriented x 3 Skin: normal color, no jaundice Laboratory Results Last 24 Hours Test 01/26/17 12:56 01/26/17 13:20 01/27/17 06:10 Urine Color YELLOW Urine Appearance CLEAR Urine pH 7.0 Urine Specific [place] 1.014 Urine Protein NEG Urine Glucose (UA) NEG Urine Ketones NEG Urine Occult Blood NEG Urine Nitrite NEG Urine Bilirubin NEG Urine Urobilinogen NEG Urine Leukocyte Esterase NEG White Blood Count 9.46 K/uL 10.61 K/uL Red Blood Count 4.76 M/uL 4.31 M/uL Hemoglobin 13.9 g/dL 12.5 g/dL Hematocrit 41.7 % 37.4 % Mean Corpuscular Volume 87.6 fL 86.8 fL Mean Corpuscular Hemoglobin 29.2 pg 29.0 pg Mean Corpuscular Hemoglobin Concent 33.3 g/dl 33.4 g/dl Platelet Count 244 K/uL 192 K/uL Mean Platelet Volume 9.2 fL 9.0 fL Neutrophils (%) (Auto) 93.2 % Lymphocytes (%) (Auto) 3.3 % Monocytes (%) (Auto) 3.1 % Eosinophils (%) (Auto) 0.1 % Basophils (%) (Auto) 0.1 % Neutrophils # (Auto) 8.82 K/uL Lymphocytes # (Auto) 0.31 K/uL Monocytes # (Auto) 0.29 K/uL Eosinophils # (Auto) 0.01 K/uL Basophils # (Auto) 0.01 K/uL RDW Standard Deviation 52.5 fL 52.3 fL RDW Coefficient of Variation 16.3 % 16.5 % Immature Granulocyte % (Auto) 0.2 % Immature Granulocyte # (Auto) 0.02 K/uL Red Blood Cell Morphology Unremarkable Prothrombin Time 10.8 SECONDS Prothromb Time International Ratio 1.0 Sodium Level 140 mmol/L 144 mmol/L Potassium Level 4.0 mmol/L 3.8 mmol/L Chloride Level 102 mmol/L 108 mmol/L Carbon Dioxide Level 25 mmol/L 28 mmol/L Anion Gap 13.0 mmol/L 8.0 mmol/L Blood Urea Nitrogen 16 mg/dl 13 mg/dl Creatinine 0.94 mg/dl 0.86 mg/dl Est Creatinine Clear Calc Drug Dose 45.5 ml/min 49.7 ml/min Estimated GFR () 83.6 89.7 Estimated GFR (Non- 72.1 77.4 BUN/Creatinine Ratio 17.1 15.0 Random Glucose 112 mg/dl 92 mg/dl Calcium Level 9.3 mg/dl 8.5 mg/dl Total Bilirubin 2.6 mg/dl 3.0 mg/dl Direct Bilirubin 1.4 mg/dl Aspartate Amino Transf (AST/SGOT) 545 U/L 203 U/L Alanine Aminotransferase (ALT/SGPT) 255 U/L 189 U/L Alkaline Phosphatase 137 U/L 108 U/L Troponin I < 0.015 ng/ml Total Protein 7.5 gm/dl 6.2 gm/dl Albumin 3.7 gm/dl 2.9 gm/dl Lipase 170 U/L Hepatitis B Surface Antigen NEG Hepatitis C Antibody NEG Globulin 3.3 gm/dl Albumin/Globulin Ratio 0.9 Assessment and Plan 86yo with chills and elevated LFTs - likely recurrent choledocholithiasis For ERCP in AM may have soft diet today then no solids after 7PM continue IV antibiotic monitor BP daily labs Attg addendum: I interviewed adn examined pt, reviewed chart and labs. Pt feels well with improving transaminases, plan ERCP tomorrow.
[2017-01-27] MEDS ORDERED: INDOMETHACIN 50 MG SUPP PR STA (11:26)
[2017-01-27] MEDS: URSODIOL 300 MG CAP PO SCH ×2 (11:32→21:01)
[2017-01-27] MEDS: PANTOprazole SOD 40 MG TAB PO SCH ×2 (11:33→21:01)
--- NOTE | 2017-01-27 11:47 | Family Medicine Progress Note ---
Progress Note Date of Service Jan 27, 2017. Subjective Pt evaluation today including: conversation w/ patient, physical exam, lab review Pain: Denies Voiding: no voiding problems Patient was seen at the bedside. He states that he is feeling better than yesterday. Denies any nausea, vomiting, abdominal pain, dizziness, lightheadedness, or any other additional complaints. Constitutional: No fever Respiratory: No cough, No dyspnea at rest, No dyspnea on exertion, No shortness of breath, No sputum, No wheezing Cardiovascular: No chest pain, No edema Abdomen: No GI bleeding, No constipation, No diarrhea, No nausea, No pain, No vomiting Musculoskeletal: No muscle pain Male : No dysuria Skin: No rash Medications Current Inpatient Medications Medications (Trade) Dose Ordered Sig/Alycia Route Start Time Stop Time Status Last Admin Dose Admin Enoxaparin Sodium (Lovenox Inj) 40 mg Q24H SQ 01/26/17 21:00 02/25/17 20:59 01/26/17 20:24 40 MG Acetaminophen (Tylenol Tab) 650 mg Q4H PRN PO 01/26/17 17:00 02/25/17 16:59 Al Hydrox/Mg Hydrox/Simethicone (Maalox Max Susp) 15 ml Q4H PRN PO 01/26/17 17:00 02/25/17 16:59 Magnesium Hydroxide (Milk Of Magnesia Susp) 30 ml Q6H PRN PO 01/26/17 17:00 02/25/17 16:59 Polyethylene (Miralax Powder Packet) 17 gm DAILY PRN PO 01/26/17 17:00 02/25/17 16:59 Ondansetron HCl 4 mg 4 mg Q6H PRN IV 01/26/17 17:00 02/25/17 16:59 Ampicillin Sodium/ Sulbactam Sodium/ Sodium Chloride (Unasyn Inj/Nss 100ml) 108 ml @ 200 mls/hr Q6H IV 01/26/17 22:00 02/05/17 21:59 01/27/17 11:32 200 MLS/HR Tamsulosin HCl (Flomax Cap) 0.4 mg HS PO 01/26/17 21:00 02/25/17 20:59 01/26/17 20:25 0.4 MG Ursodiol (Actigall Cap) 300 mg BID PO 01/26/17 21:00 02/25/17 20:59 01/27/17 11:32 300 MG Pantoprazole Sodium (Protonix Tab) 40 mg BID PO 01/26/17 21:00 02/25/17 20:59 01/27/17 11:33 40 MG Non-Formulary Medication (Zoledronic Acid (Reclast)) 1 dose YEARLY IV 01/26/17 18:15 02/25/17 18:14 Future Hold Ampicillin Sodium/ Sulbactam Sodium (Consult) 1 ea UD PRN N/A 01/26/17 18:45 02/25/17 18:44 Objective Vital Signs Date Time Temp Pulse Resp B/P Pulse Ox O2 Delivery O2 Flow Rate FiO2 01/27/17 08:00 96 Room Air 01/27/17 07:09 36.8 76 16 83/51 96 95/60 01/27/17 05:18 Room Air 01/27/17 00:00 Room Air 01/26/17 23:25 37.0 68 18 99/64 94 Room Air 01/26/17 18:50 37.4 71 20 111/64 96 Room Air 01/26/17 18:01 76 18 114/51 94 Room Air 01/26/17 17:00 95 Room Air 01/26/17 16:15 84 18 116/67 95 Room Air 01/26/17 14:13 96 18 147/88 96 Room Air 01/26/17 13:44 93 01/26/17 12:44 37.1 81 18 148/61 100 Room Air Physical Exam General Appearance: WD/WN, no apparent distress Neck: supple, trachea midline Respiratory/Chest: chest non-tender, lungs clear, normal breath sounds, no respiratory distress, no accessory muscle use Cardiovascular: regular rate, rhythm, no edema Abdomen: normal bowel sounds, non tender, soft Extremities: non-tender, no pedal edema, no calf tenderness Neurologic/Psychiatric: alert, normal mood/affect, oriented x 3 Skin: normal color, warm/dry, no rash Laboratory Results Results Past 24 Hours Test 01/26/17 12:56 01/26/17 13:20 01/27/17 06:10 Range/Units Urine Color YELLOW Urine Appearance CLEAR CLEAR Urine pH 7.0 4.5-7.5 Urine Specific [place] 1.014 1.000-1.030 Urine Protein NEG NEG Urine Glucose (UA) NEG NEG Urine Ketones NEG NEG Urine Occult Blood NEG NEG Urine Nitrite NEG NEG Urine Bilirubin NEG NEG Urine Urobilinogen NEG NEG Urine Leukocyte Esterase NEG NEG White Blood Count 9.46 10.61 4.8-10.8 K/uL Red Blood Count 4.76 4.31 4.7-6.1 M/uL Hemoglobin 13.9 12.5 14.0-18.0 g/dL Hematocrit 41.7 37.4 42-52 % Mean Corpuscular Volume 87.6 86.8 80-100 fL Mean Corpuscular Hemoglobin 29.2 29.0 25-34 pg Mean Corpuscular Hemoglobin Concent 33.3 33.4 32-36 g/dl Platelet Count 244 192 130-400 K/uL Mean Platelet Volume 9.2 9.0 7.4-10.4 fL Neutrophils (%) (Auto) 93.2 % Lymphocytes (%) (Auto) 3.3 % Monocytes (%) (Auto) 3.1 % Eosinophils (%) (Auto) 0.1 % Basophils (%) (Auto) 0.1 % Neutrophils # (Auto) 8.82 1.4-6.5 K/uL Lymphocytes # (Auto) 0.31 1.2-3.4 K/uL Monocytes # (Auto) 0.29 0.11-0.59 K/uL Eosinophils # (Auto) 0.01 0-0.5 K/uL Basophils # (Auto) 0.01 0-0.2 K/uL RDW Standard Deviation 52.5 52.3 36.4-46.3 fL RDW Coefficient of Variation 16.3 16.5 11.5-14.5 % Immature Granulocyte % (Auto) 0.2 % Immature Granulocyte # (Auto) 0.02 0.00-0.02 K/uL Red Blood Cell Morphology Unremarkable Prothrombin Time 10.8 9.0-12.0 SECONDS Prothromb Time International Ratio 1.0 0.9-1.1 Sodium Level 140 144 136-145 mmol/L Potassium Level 4.0 3.8 3.5-5.1 mmol/L Chloride Level 102 108 98-107 mmol/L Carbon Dioxide Level 25 28 21-32 mmol/L Anion Gap 13.0 8.0 3-11 mmol/L Blood Urea Nitrogen 16 13 7-18 mg/dl Creatinine 0.94 0.86 0.60-1.40 mg/dl Est Creatinine Clear Calc Drug Dose 45.5 49.7 ml/min Estimated GFR () 83.6 89.7 Estimated GFR (Non- 72.1 77.4 BUN/Creatinine Ratio 17.1 15.0 10-20 Random Glucose 112 92 70-99 mg/dl Calcium Level 9.3 8.5 8.5-10.1 mg/dl Total Bilirubin 2.6 3.0 0.2-1 mg/dl Direct Bilirubin 1.4 0-0.2 mg/dl Aspartate Amino Transf (AST/SGOT) 545 203 15-37 U/L Alanine Aminotransferase (ALT/SGPT) 255 189 12-78 U/L Alkaline Phosphatase 137 108 45-117 U/L Troponin I < 0.015 0-0.045 ng/ml Total Protein 7.5 6.2 6.4-8.2 gm/dl Albumin 3.7 2.9 3.4-5.0 gm/dl Lipase 170 73-393 U/L Hepatitis B Surface Antigen NEG NEG Hepatitis C Antibody NEG NEG Globulin 3.3 2.5-4.0 gm/dl Albumin/Globulin Ratio 0.9 0.9-2 Assessment and Plan This is a 86 y/o male with hx of gall stones s/p cholecystectomy, cholangitis, recurrent choledocholithiasis requiring multiple ERCPs with sphincterotomy ( most recent ERCP 01/11/17), 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 Patient also has hx of gram negative bacteremia required ERCP with sphincterotomies. 1. RUQ abdominal discomfort, N/V - It is most likely secondary to recurrent choledocholithiasis/cholangitis given previous hx, US of abd and elevated LFTs and bilirubin. - Patient is currently stable and symptoms are improving - Abd US (01/26): There is intra and extrahepatic biliary ductal dilatation as well as pneumobilia. This is similar to the 05/27/2015 examination. The pancreas was not well visualized due to overlying bowel gas. - LFTs are still elevated but trending down - Hep B and C are negative. Hep A is pending - GI was consulted and saw the patient yesterday. Plan for ERCP tomorrow am - Patient will be NPO after 7pm today 2. Possible recurrent episode of choledocholithiasis/cholangitis - Patient had multiple ERCP with sphincterotomy (most recent ERCP 01/11/17) - S/p biliary stenting sep 2015, removed 11/29/15 - C/w Ursodiol 300mg BID - Abd US (01/26):T here is intra and extrahepatic biliary ductal dilatation as well as pneumobilia. This is similar to the 05/27/2015 examination. The pancreas was not well visualized due to overlying bowel gas. - GI on board. Plan for ERCP tomorrow - Patient has hx of gram negative bacteremia required ERCP with sphincterotomies. - S/p Zosyn in ED - On Unazyn 3gm q6h (Day #2) 3. Elevated LFTs - Likely 2/2 to cholangitis - LFTs are still elevated but trending down (AST 302, ALT 189, Alk Phos 108 , Tot Bili 3.0) - Continue to monitor 4. Chronic Symptoms CREST Syndrome: currently stable, no complaints, not on medication at home GERD: on Protonix 40mg BID 5. Diet: Patient was NPO after midnight for possible ERCP today 6. DVT Prophylaxis - SCD's 7. Code Status - DNR Reviewed: Pt Seen/Exam by Me History no new concerns Constitutional: denies: fever Respiratory: negative: short of breath Cardiovascular: denies chest pain Gastrointestinal/Abdominal: negative: abdominal pain General Appearance: no apparent distress Respiratory: lungs clear, no respiratory distress Cardiovascular: regular rate, rhythm Gastrointestinal: normal bowel sounds, non tender, soft Neurologic/Psychiatric: alert, oriented x 3 Skin Characteristics: warm/dry Assessment/Plan I have reviewed the medical record and performed a history and physical examination of this patient today. I have discussed the case with Dr. Forte. The above note reflects my findings, conclusions, and recommendations.
--- NOTE | 2017-01-27 12:36 | Anesthesiology Progress Note ---
Anesthesia Progress Note Date of Service Jan 27, 2017. Progress Notes Mr. Watts is an 86 year old male who is allergic to PCN and slated to undergo an ERCP on 01/28/17. He has had this procedure done multiple times without issue. PMH significant for interstitial pulmonary fibrosis, mild pulm HTN, GERD, Anemia , CREST syndrome and scleroderma. He last had ERCP in May 2016 and notable for better view with barraza 2 rather than MAC 3, otherwise unremarkable case. EKG shows NSR with HR 100 wtih possible LAE and LAD. Airway exam MP 2 with perm bridges. Plan for GETA. Consent obtained. Questions answered.
[2017-01-27 15:05] VITALS: BP 116/63; PULSE 55; TEMP 36.6; O2SAT 95
[2017-01-27 16:00] VITALS: O2SAT 95
[2017-01-27] MEDS: TAMSULOSIN HCL 0.4 MG CAP PO SCH (21:01)
[2017-01-27] MEDS: ENOXAPARIN 40 MG/0.4 ML SYR SQ SCH (21:02)
[2017-01-27 23:05] VITALS: BP 110/59; PULSE 72; TEMP 36.9; O2SAT 98
[2017-01-28] VITALS (7 sets, daily range): BP systolic 110–158; BP diastolic 59–78; PULSE 58–74; TEMP 36.3–36.9; O2SAT 94–100
[2017-01-28] MEDS: AMPICILLIN/SULBACTAM SOD INJ 3,000 MG in SODIUM CHLORIDE 0.9% 100ML 100 ML IV SCH ×4 (04:06→21:47)
[2017-01-28] MEDS ORDERED: LIDOCAINE 2% 20 MG/ML 5ML SYR ONE (06:42)
[2017-01-28] MEDS ORDERED: ROCURONIUM BROMIDE 10 MG/ML 5 ML VIAL ONE (06:42)
[2017-01-28] MEDS ORDERED: SUCCINYLCHOLINE CHLORIDE 20 MG/ML 10 ML VIAL IV ONE (06:42)
[2017-01-28] MEDS ORDERED: PROPOFOL IV EMULSION 10 MG/ML 20 ML VIAL IV ONE (06:42)
[2017-01-28] MEDS ORDERED: FENTANYL CITRATE INJ 50 MCG/1 ML 2 ML VIAL ONE (06:43)
--- NOTE | 2017-01-28 07:17 | History & Physical Bridge Note ---
H&P Re-Evaluation Bridge Note: I have examined the patient, reviewed the History & Physical and in the interval since the performance of the History & Physical I have noted the following changes of clinical significance: No changes noted
[2017-01-28] MEDS ORDERED: ETOMIDATE 2 MG/ML 20 ML VIAL IV ONE (07:37)
[2017-01-28] MEDS ORDERED: ONDANSETRON INJ 2 MG/ML 2 ML VIAL ONE (07:39)
[2017-01-28] MEDS ORDERED: DEXAMETHASONE SOD INJ 4 MG/ML VIAL ONE (07:39)
--- NOTE | 2017-01-28 08:50 | DIAGNOSTIC IMAGING REPORT ---
ERCP BILIARY DUCTAL CLINICAL HISTORY: ERCP IN OR. Bile duct dilatation. COMPARISON STUDY: Abdominal ultrasound 01/26/2017. FLUOROSCOPY TIME: 161 seconds. 5 images submitted.. FINDINGS: The endoscope is seen at the second portion of the duodenum. The ampulla was cannulated. A guidewire was placed into the common bile duct and intrahepatic ducts with contrast injected. There is a distended common bile duct and distended intrahepatic bile ducts. A balloon sweep was performed. IMPRESSION: Fluoroscopy provided for a balloon sweep of the common bile duct. Electronically signed by: Saurabh Bains M.D. 01/28/2017 8:49 AM Dictated Date/Time: 01/28/2017 8:47 AM
[2017-01-28] MEDS ORDERED: ATROPINE SULFATE 0.1 MG/ML 5ML SYR IV PRN (09:00)
[2017-01-28] MEDS ORDERED: EpHEDrine SULFATE INJ 50 MG/ML AMP IV PRN (09:00)
--- NOTE | 2017-01-28 09:18 | Anesthesiology Progress Note ---
Anesthesia Post Op Note Date & Time Jan 28, 2017 at 09:17 Vital Signs Pain Intensity: 1 Vital Signs Past 12 Hours Date Time Temp Pulse Resp B/P Pulse Ox O2 Delivery O2 Flow Rate FiO2 01/28/17 09:00 62 16 148/72 99 Nasal Cannula 3 01/28/17 08:50 65 16 137/72 99 Mask 10 01/28/17 08:40 73 16 153/68 99 Mask 10 01/28/17 08:31 36.5 72 16 139/73 99 Mask 10 01/28/17 06:33 36.9 72 20 110/59 98 Room Air 01/28/17 00:00 Room Air 01/27/17 23:05 36.9 72 20 110/59 98 Room Air Notes Mental Status: alert / awake / arousable, participated in evaluation Pt Amnestic to Procedure: Yes Nausea / Vomiting: adequately controlled Pain: adequately controlled Airway Patency, RR, SpO2: stable & adequate BP & HR: stable & adequate Hydration State: stable & adequate Anesthetic Complications: no major complications apparent
[2017-01-28 10:16] LABS: HEMATOCRIT 38.9 % (42-52); MEAN CORPUSCULAR HEMOGLOBIN 28.7 pg (25-34); MEAN CORPUSCULAR HGB CONC 32.6 g/dl (32-36); MEAN PLATELET VOLUME 9.7 fL (7.4-10.4); PLATELET COUNT 208 K/uL (130-400); RED BLOOD COUNT 4.42 M/uL (4.7-6.1); WHITE BLOOD COUNT 7.84 K/uL (4.8-10.8)
[2017-01-28 10:49] LABS: ALB/GLOB RATIO 0.8 (0.9-2); BUN/CREATININE RATIO 15.3 (10-20); CALCIUM 8.5 mg/dl (8.5-10.1); CREATININE 0.88 mg/dl (0.60-1.40); POTASSIUM 3.8 mmol/L (3.5-5.1)
[2017-01-28] MEDS: URSODIOL 300 MG CAP PO SCH ×2 (12:28→21:46)
[2017-01-28] MEDS: PANTOprazole SOD 40 MG TAB PO SCH ×2 (12:29→21:46)
--- NOTE | 2017-01-28 15:07 | GI REPORT ---
Procedure Date: 01/28/2017 7:02 AM Procedure: ERCP Indications: For therapy of ascending cholangitis Medicines: Indomethicin 100 mg rectal, General Anesthesia Complications: No immediate complications. Estimated blood loss: None Estimated Blood Loss: Estimated blood loss: none. Procedure: Pre-Anesthesia Assessment: - Prior to the procedure, a History and Physical was performed, and patient medications, allergies and sensitivities were reviewed. The patient's tolerance of previous anesthesia was reviewed. - ASA Grade Assessment: III - A patient with severe systemic disease. After obtaining informed consent, the scope was passed under direct vision. Throughout the procedure, the patient's blood pressure, pulse, and oxygen saturations were monitored continuously. The Scope was introduced through the mouth, and advanced to the duodenum and used for direct visualization of the bile duct. The ERCP was accomplished with ease. The patient tolerated the procedure well. Findings: A cabin service agent film of the abdomen was obtained. Surgical clips, consistent with previous cholecystectomy, were seen in the area of the right upper quadrant of the abdomen. The upper GI tract was traversed under direct vision without detailed examination. A medium amount of food (residue) was found in the entire examined stomach. Food (residue) was found in the entire duodenum and filled the diverticulum containing the biliary orifice. The duodenum was lavaged. The major papilla was located entirely within a diverticulum. A biliary sphincterotomy had been performed. The sphincterotomy appeared open. A [employer] 0.035 inch guidewire passed through a [employer] FS Omni 35 sphincterotome and successfully into the right main hepatic duct. Cholangiogram was performed. There was air in the duct but no obvious filling defects. Dilation of the sphincterotomy and distal common bile duct with a 10 mm balloon dilator was successful. To discover objects, the biliary tree was swept with a 15 mm balloon starting at the bifurcation. A small amount of sludge was swept from the duct. The duct was lavaged with copious amounts of saline. The total fluoroscopy exposure time was 2 minutes and 41 seconds. Impression: - A medium amount of food (residue) in the stomach. - Retained food in the duodenum. - The major papilla was located entirely within a diverticulum. - Prior biliary endoscopic sphincterotomy appeared open. - Common bile duct was successfully dilated - The biliary tree was swept and sludge was found. Recommendation: - Return patient to [facility] for ongoing care. Rory Tomlin M.D. Rory Tomlin MD 01/28/2017 8:47:01 AM This report has been signed electronically. Note Initiated On: 01/28/2017 7:02 AM I attest to the content of the Intraoperative Record and orders documented therein, exceptions below
[2017-01-28] MEDS: METOCLOPRAMIDE HCL 5 MG TAB PO SCH (16:18)
--- NOTE | 2017-01-28 17:38 | Family Medicine Progress Note ---
Progress Note Date of Service Jan 28, 2017. Subjective Pt evaluation today including: conversation w/ patient, physical exam, chart review, lab review, review of studies Pain: Denies Voiding: no voiding problems Patient was seen at the bedside. He tolerated the procedure (ERCP) well. He is tolerating food well. Denies any abdominal pain, nausea, vomiting, diarrhea, constipation or any other additional symptoms. Constitutional: No chills, No fever Respiratory: No cough, No dyspnea on exertion, No shortness of breath, No sputum, No wheezing Cardiovascular: No chest pain, No edema Abdomen: No constipation, No diarrhea, No nausea, No pain, No vomiting Musculoskeletal: No joint pain, No muscle pain Skin: No rash Medications Current Inpatient Medications Medications (Trade) Dose Ordered Sig/Alycia Route Start Time Stop Time Status Last Admin Dose Admin Enoxaparin Sodium (Lovenox Inj) 40 mg Q24H SQ 01/26/17 21:00 02/25/17 20:59 01/27/17 21:02 40 MG Acetaminophen (Tylenol Tab) 650 mg Q4H PRN PO 01/26/17 17:00 02/25/17 16:59 Al Hydrox/Mg Hydrox/Simethicone (Maalox Max Susp) 15 ml Q4H PRN PO 01/26/17 17:00 02/25/17 16:59 Magnesium Hydroxide (Milk Of Magnesia Susp) 30 ml Q6H PRN PO 01/26/17 17:00 02/25/17 16:59 Polyethylene (Miralax Powder Packet) 17 gm DAILY PRN PO 01/26/17 17:00 02/25/17 16:59 Ondansetron HCl 4 mg 4 mg Q6H PRN IV 01/26/17 17:00 02/25/17 16:59 Ampicillin Sodium/ Sulbactam Sodium/ Sodium Chloride (Unasyn Inj/Nss 100ml) 108 ml @ 200 mls/hr Q6H IV 01/26/17 22:00 02/05/17 21:59 01/28/17 16:16 200 MLS/HR Tamsulosin HCl (Flomax Cap) 0.4 mg HS PO 01/26/17 21:00 02/25/17 20:59 01/27/17 21:01 0.4 MG Ursodiol (Actigall Cap) 300 mg BID PO 01/26/17 21:00 4/6/17 20:59 01/28/17 12:28 300 MG Pantoprazole Sodium (Protonix Tab) 40 mg BID PO 01/26/17 21:00 02/25/17 20:59 01/28/17 12:29 40 MG Non-Formulary Medication (Zoledronic Acid (Reclast)) 1 dose YEARLY IV 01/26/17 18:15 02/25/17 18:14 Future Hold Ampicillin Sodium/ Sulbactam Sodium (Consult) 1 ea UD PRN N/A 01/26/17 18:45 02/25/17 18:44 Metoclopramide HCl (Reglan Tab) 5 mg AC PO 01/28/17 16:30 02/27/17 16:29 01/28/17 16:18 5 MG Objective Vital Signs Date Time Temp Pulse Resp B/P Pulse Ox O2 Delivery O2 Flow Rate FiO2 01/28/17 15:54 36.4 74 17 115/74 97 Room Air 01/28/17 10:30 36.3 71 18 128/73 94 Room Air 01/28/17 10:00 36.4 62 17 139/78 100 Room Air 01/28/17 09:30 36.4 58 17 158/75 100 Room Air 01/28/17 09:10 36.5 58 16 140/59 99 Nasal Cannula 3 01/28/17 09:00 62 16 148/72 99 Nasal Cannula 3 01/28/17 08:50 65 16 137/72 99 Mask 10 01/28/17 08:40 73 16 153/68 99 Mask 10 01/28/17 08:31 36.5 72 16 139/73 99 Mask 10 01/28/17 08:00 98 Room Air 01/28/17 06:33 36.9 72 20 110/59 98 Room Air 01/28/17 00:00 Room Air 01/27/17 23:05 36.9 72 20 110/59 98 Room Air Physical Exam General Appearance: WD/WN, no apparent distress Neck: supple, trachea midline Respiratory/Chest: chest non-tender, lungs clear, normal breath sounds, no respiratory distress, no accessory muscle use Cardiovascular: regular rate, rhythm, no edema Abdomen: normal bowel sounds, non tender, soft, no pulsatile mass Extremities: non-tender, no pedal edema, no calf tenderness Neurologic/Psychiatric: alert, normal mood/affect Skin: warm/dry, no rash, + jaundice Laboratory Results Results Past 24 Hours Test 01/28/17 09:50 Range/Units White Blood Count 7.84 4.8-10.8 K/uL Red Blood Count 4.42 4.7-6.1 M/uL Hemoglobin 12.7 14.0-18.0 g/dL Hematocrit 38.9 42-52 % Mean Corpuscular Volume 88.0 80-100 fL Mean Corpuscular Hemoglobin 28.7 25-34 pg Mean Corpuscular Hemoglobin Concent 32.6 32-36 g/dl RDW Standard Deviation 53.5 36.4-46.3 fL RDW Coefficient of Variation 16.5 11.5-14.5 % Platelet Count 208 130-400 K/uL Mean Platelet Volume 9.7 7.4-10.4 fL Sodium Level 141 136-145 mmol/L Potassium Level 3.8 3.5-5.1 mmol/L Chloride Level 105 98-107 mmol/L Carbon Dioxide Level 26 21-32 mmol/L Anion Gap 10.0 3-11 mmol/L Blood Urea Nitrogen 14 7-18 mg/dl Creatinine 0.88 0.60-1.40 mg/dl Est Creatinine Clear Calc Drug Dose 48.6 ml/min Estimated GFR () 88.9 Estimated GFR (Non- 76.7 BUN/Creatinine Ratio 15.3 10-20 Random Glucose 114 70-99 mg/dl Calcium Level 8.5 8.5-10.1 mg/dl Total Bilirubin 5.3 0.2-1 mg/dl Aspartate Amino Transf (AST/SGOT) 116 15-37 U/L Alanine Aminotransferase (ALT/SGPT) 130 12-78 U/L Alkaline Phosphatase 134 45-117 U/L Total Protein 6.6 6.4-8.2 gm/dl Albumin 3.0 3.4-5.0 gm/dl Globulin 3.6 2.5-4.0 gm/dl Albumin/Globulin Ratio 0.8 0.9-2 Assessment and Plan This is a 86 y/o male with hx of gall stones s/p cholecystectomy, cholangitis, recurrent choledocholithiasis requiring multiple ERCPs with sphincterotomy ( most recent ERCP 01/11/17), 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 Patient also has hx of gram negative bacteremia required ERCP with sphincterotomies. 1. RUQ abdominal discomfort, N/V - Patient is currently asymptomatic, denies any pain, nausea or vomiting - It is most likely secondary to recurrent choledocholithiasis/cholangitis given previous hx, US of abd and elevated LFTs and bilirubin. 2. Possible recurrent episode of choledocholithiasis/cholangitis - Patient had multiple ERCP with sphincterotomy (most recent ERCP 01/11/17) - S/p biliary stenting sep 2015, removed 11/29/15 - C/w Ursodiol 300mg BID - Abd US (01/26):T here is intra and extrahepatic biliary ductal dilatation as well as pneumobilia. This is similar to the 05/27/2015 examination. The pancreas was not well visualized due to overlying bowel gas. - LFTs are still elevated but trending down - Hep B and C are negative. Hep A and Hep B core IgM are pending - Patient has hx of gram negative bacteremia required ERCP with sphincterotomies. - S/p Zosyn in ED - On Unazyn 3gm q6h (Day #3) - GI was consulted and ERCP was performed today. Prior biliary endoscopic sphincterotomy appeared to be open and dilation of the common bile duct was performed. - Will await for further recommendation from GI. 3. Elevated LFTs - Likely 2/2 to cholangitis - LFTs are still elevated but trending down (AST 116, ALT 130, Alk Phos 134 , Tot Bili 5.3) - Continue to monitor 4. Chronic Symptoms CREST Syndrome: currently stable, no complaints, not on medication at home GERD: on Protonix 40mg BID 5. DVT Prophylaxis - SCD's 6. Code Status - DNR Reviewed: Pt Seen/Exam by Me History no abdominal pain Constitutional: denies: fever Respiratory: negative: short of breath Cardiovascular: denies chest pain Gastrointestinal/Abdominal: negative: abdominal pain General Appearance: no apparent distress Respiratory: lungs clear, no respiratory distress Cardiovascular: regular rate, rhythm Gastrointestinal: normal bowel sounds, non tender, soft Neurologic/Psychiatric: alert, oriented x 3 Skin Characteristics: jaundice Assessment/Plan I have reviewed the medical record and performed a history and physical examination of this patient today. I have discussed the case with Dr. Forte. The above note reflects my findings, conclusions, and recommendations.
[2017-01-28] MEDS: TAMSULOSIN HCL 0.4 MG CAP PO SCH (21:46)
[2017-01-28] MEDS: ENOXAPARIN 40 MG/0.4 ML SYR SQ SCH (21:47)
[2017-01-29 00:25] VITALS: BP 118/72; PULSE 62; TEMP 36.4; O2SAT 97
[2017-01-29] MEDS: AMPICILLIN/SULBACTAM SOD INJ 3,000 MG in SODIUM CHLORIDE 0.9% 100ML 100 ML IV SCH ×2 (04:24→11:18)
[2017-01-29 06:25] LABS: HEMATOCRIT 35.5 % (42-52); MEAN CORPUSCULAR HEMOGLOBIN 28.7 pg (25-34); MEAN PLATELET VOLUME 9.7 fL (7.4-10.4); PLATELET COUNT 194 K/uL (130-400); RED BLOOD COUNT 4.08 M/uL (4.7-6.1); WHITE BLOOD COUNT 6.78 K/uL (4.8-10.8)
[2017-01-29] MEDS: METOCLOPRAMIDE HCL 5 MG TAB PO SCH ×2 (06:37→11:18)
[2017-01-29 06:59] LABS: BUN/CREATININE RATIO 19.6 (10-20); CALCIUM 8.2 mg/dl (8.5-10.1); CREATININE 0.73 mg/dl (0.60-1.40); POTASSIUM 3.7 mmol/L (3.5-5.1)
[2017-01-29 07:03] LABS: ALB/GLOB RATIO 0.7 (0.9-2)
[2017-01-29] MEDS: URSODIOL 300 MG CAP PO SCH (07:39)
[2017-01-29] MEDS: PANTOprazole SOD 40 MG TAB PO SCH (07:39)
[2017-01-29 07:54] VITALS: BP 102/61; PULSE 63; TEMP 36.4; O2SAT 95
[2017-01-29 08:00] VITALS: O2SAT 95
--- NOTE | 2017-01-29 08:00 | Anesthesiology Progress Note ---
Anesthesia Post Op Note Date & Time Jan 29, 2017 at 07:58 Vital Signs Pain Intensity: 0.0 Vital Signs Past 12 Hours Date Time Temp Pulse Resp B/P Pulse Ox O2 Delivery O2 Flow Rate FiO2 01/29/17 07:54 36.4 63 18 102/61 95 Room Air 01/29/17 00:25 36.4 62 18 118/72 97 Room Air 01/28/17 23:55 Room Air Notes Mental Status: alert / awake / arousable, participated in evaluation Pt Amnestic to Procedure: Yes Nausea / Vomiting: adequately controlled Pain: adequately controlled Airway Patency, RR, SpO2: stable & adequate BP & HR: stable & adequate Hydration State: stable & adequate Anesthetic Complications: no major complications apparent
--- NOTE | 2017-01-29 11:13 | Gastroenterology Progress Note ---
Progress Note Date of Service: Jan 29, 2017 Subjective Pt evaluation today including: conversation w/ patient, physical exam, chart review, lab review, review of inpatient medication list Pt insists on going home today. Afebrile overnight. Denies any abd pain, n/v. LFTs are trending down. No BMs but passing flatus. Review of Systems Constitutional: No chills, No fever Respiratory: No cough, No shortness of breath Cardiac: No edema Abdomen: No nausea, No pain, No vomiting Skin: No itch, No jaundice, No rash Medications Current Inpatient Medications Medications (Trade) Dose Ordered Sig/Alycia Route Start Time Stop Time Status Last Admin Dose Admin Enoxaparin Sodium (Lovenox Inj) 40 mg Q24H SQ 01/26/17 21:00 02/25/17 20:59 01/28/17 21:47 40 MG Acetaminophen (Tylenol Tab) 650 mg Q4H PRN PO 01/26/17 17:00 02/25/17 16:59 Al Hydrox/Mg Hydrox/Simethicone (Maalox Max Susp) 15 ml Q4H PRN PO 01/26/17 17:00 02/25/17 16:59 Magnesium Hydroxide (Milk Of Magnesia Susp) 30 ml Q6H PRN PO 01/26/17 17:00 02/25/17 16:59 Polyethylene (Miralax Powder Packet) 17 gm DAILY PRN PO 01/26/17 17:00 02/25/17 16:59 Ondansetron HCl 4 mg 4 mg Q6H PRN IV 01/26/17 17:00 02/25/17 16:59 Ampicillin Sodium/ Sulbactam Sodium/ Sodium Chloride (Unasyn Inj/Nss 100ml) 108 ml @ 200 mls/hr Q6H IV 01/26/17 22:00 02/05/17 21:59 01/29/17 04:24 200 MLS/HR Tamsulosin HCl (Flomax Cap) 0.4 mg HS PO 01/26/17 21:00 02/25/17 20:59 01/28/17 21:46 0.4 MG Ursodiol (Actigall Cap) 300 mg BID PO 01/26/17 21:00 02/25/17 20:59 01/29/17 07:39 300 MG Pantoprazole Sodium (Protonix Tab) 40 mg BID PO 01/26/17 21:00 02/25/17 20:59 01/29/17 07:39 40 MG Non-Formulary Medication (Zoledronic Acid (Reclast)) 1 dose YEARLY IV 01/26/17 18:15 02/25/17 18:14 Future Hold Ampicillin Sodium/ Sulbactam Sodium (Consult) 1 ea UD PRN N/A 01/26/17 18:45 02/25/17 18:44 Metoclopramide HCl (Reglan Tab) 5 mg AC PO 01/28/17 16:30 02/27/17 16:29 01/29/17 06:37 5 MG Objective Vital Signs Date Time Temp Pulse Resp B/P Pulse Ox O2 Delivery O2 Flow Rate FiO2 01/29/17 08:00 95 Room Air 01/29/17 07:54 36.4 63 18 102/61 95 Room Air 01/29/17 00:25 36.4 62 18 118/72 97 Room Air 01/28/17 23:55 Room Air 01/28/17 16:00 97 Room Air 01/28/17 15:54 36.4 74 17 115/74 97 Room Air Physical Exam General Appearance: WD/WN, no apparent distress Eyes: normal inspection, PERRL, EOMI Neck: supple, no JVD, trachea midline Respiratory/Chest: normal breath sounds, no respiratory distress, no accessory muscle use Cardiovascular: regular rate, rhythm, no gallop, no murmur Abdomen: normal bowel sounds, non tender, soft Extremities: normal inspection, no pedal edema, no calf tenderness Neurologic/Psych: alert, normal mood/affect, oriented x 3 Skin: normal color, no jaundice, no rash Laboratory Results Last 24 Hours Test 01/29/17 05:55 White Blood Count 6.78 K/uL Red Blood Count 4.08 M/uL Hemoglobin 11.7 g/dL Hematocrit 35.5 % Mean Corpuscular Volume 87.0 fL Mean Corpuscular Hemoglobin 28.7 pg Mean Corpuscular Hemoglobin Concent 33.0 g/dl RDW Standard Deviation 52.1 fL RDW Coefficient of Variation 16.3 % Platelet Count 194 K/uL Mean Platelet Volume 9.7 fL Sodium Level 142 mmol/L Potassium Level 3.7 mmol/L Chloride Level 106 mmol/L Carbon Dioxide Level 25 mmol/L Anion Gap 11.0 mmol/L Blood Urea Nitrogen 14 mg/dl Creatinine 0.73 mg/dl Est Creatinine Clear Calc Drug Dose 58.6 ml/min Estimated GFR () 96.0 Estimated GFR (Non- 82.8 BUN/Creatinine Ratio 19.6 Random Glucose 91 mg/dl Calcium Level 8.2 mg/dl Total Bilirubin 1.9 mg/dl Aspartate Amino Transf (AST/SGOT) 89 U/L Alanine Aminotransferase (ALT/SGPT) 105 U/L Alkaline Phosphatase 108 U/L Total Protein 6.1 gm/dl Albumin 2.6 gm/dl Globulin 3.5 gm/dl Albumin/Globulin Ratio 0.7 Lipase 112 U/L Assessment and Plan Pt is a 86 y/o w hx of recurrent choledocholithiasis, cholangitis admitted for chills and elevated LFTs. Underwent ERCP w biliary duct dilation, sludge swept. He does appear to have cholangitis. He also was noted to have food residue likely at his duodenal diverticulum. ? if this is causing his recurrent cholangitis. Pt feels well today, no abd pain, n/v, been afebrile. LFTs trending down after ERCP. He is very insistent on going home today. - Convert antibx to Cipro 500mg BID x 5 more days - May continue Reglan 5mg qAC - OK for DC from GI standpoint. Recommend pt to have f/u LFT labs by PCP within next week to monitor it. Pt aware to come back to ED if having fever, chills, abd pain, n/v, jaundice. ATTESTATION: I have performed a history and physical examination of this patient and reviewed the electronic record. Specifically, on physical examination there is no abdominal tenderness. I have discussed the case with JULIET Reina. The above note reflects my findings, conclusions, and recommendations. Rory Tomlin MD
[2017-01-29] MEDS ORDERED: CIPR1TAB11 PO (13:15)
[2017-01-29] MEDS ORDERED: METO5TAB3 PO (13:15)
--- NOTE | 2017-01-29 13:24 | Discharge Instructions ---
Discharge Instructions Date of Service Jan 29, 2017. Admission Reason for Admission: Abdominal Discomfort, Nausea And Vomiting Discharge Discharge Diagnosis / Problem: recurrent cholangitis Discharge Goals Goal(s): Decrease discomfort, Improve disease control, Diagnostic testing, Therapeutic intervention Activity Recommendations Activity Limitations: resume your previous activity . Instructions / Follow-Up Instructions / Follow-Up You presented to the hospital for abdominal pain, chills, nausea, and vomiting. GI was consulted and ERCP was performed. Dilatation of the common bile duct was done, no stent was placed. You will be prescribed antibiotics Ciprofloxacin 500mg twice for 5 days. Please take it as instructed. You are also prescribed Reglan 5mg and take it as needed. Recommend to have follow up liver function tests labs by primary care provider within next week to monitor it. Please follow up with the primary doctor within next week. Please come back to the ED if having fever, chills, abdominal pain, nausea, and jaundice. Current Hospital Diet Patient's current hospital diet: Full Liquid Diet, Low Fat Diet Discharge Diet Recommended Diet: Low Fat Diet Procedures Procedures Performed: Endoscopic Retrograde Cholangiopancreatogram Pending Studies Studies pending at discharge: no Medical Emergencies . Who to Call and When: Medical Emergencies: If at any time you feel your situation is an emergency, please call 911 immediately. . Non-Emergent Contact Non-Emergency issues call your: Primary Care Provider . . "Provider Documentation" section prepared by Mike Forte. VTE Core Measure Inpt VTE Proph given/why not?: SCD's
[2017-01-29 14:25] VITALS: BP 102/61; PULSE 63; TEMP 36.4; O2SAT 95
--- NOTE | 2017-01-29 16:18 | Discharge Summary ---
Discharge Summary Date of Service Jan 29, 2017. (Mike Forte MD) Discharge Summary Admission Date: Jan 26, 2017 at 17:08 Discharge Date: Jan 29, 2017 Principal Diagnosis: Recurrent ascending cholangitis Immunizations: Have You Had Influenza Vaccine: N/A History of Tetanus Vaccine?: Yes Tetanus Immunization Date: May 05, 2013 History of Pneumococcal: Yes Pneumococcal Date: Sep 04, 2012 History of Hepatitis B Vaccine: No Procedures: DICTATED BY: Rory Tomlin M.D. Procedure Date: 01/28/2017 7:02 AM Procedure: ERCP Indications: For therapy of ascending cholangitis Medicines: Indomethicin 100 mg rectal, General Anesthesia Complications: No immediate complications. Estimated blood loss: None Estimated Blood Loss: Estimated blood loss: none. Procedure: Pre-Anesthesia Assessment: - Prior to the procedure, a History and Physical was performed, and patient medications, allergies and sensitivities were reviewed. The patient's tolerance of previous anesthesia was reviewed. - ASA Grade Assessment: III - A patient with severe systemic disease. After obtaining informed consent, the scope was passed under direct vision. Throughout the procedure, the patient's blood pressure, pulse, and oxygen saturations were monitored continuously. The Scope was introduced through the mouth, and advanced to the duodenum and used for direct visualization of the bile duct. The ERCP was accomplished with ease. The patient tolerated the procedure well. Findings: A bladder tier film of the abdomen was obtained. Surgical clips, consistent with previous cholecystectomy, were seen in the area of the right upper quadrant of the abdomen. The upper GI tract was traversed under direct vision without detailed examination. A medium amount of food (residue) was found in the entire examined stomach. Food (residue) was found in the entire duodenum and filled the diverticulum containing the biliary orifice. The duodenum was lavaged. The major papilla was located entirely within a diverticulum. A biliary sphincterotomy had been performed. The sphincterotomy appeared open. A Cortexa Acrobat 0.035 inch guidewire passed through a Cortexa FS Omni 35 sphincterotome and successfully into the right main hepatic duct. Cholangiogram was performed. There was air in the duct but no obvious filling defects. Dilation of the sphincterotomy and distal common bile duct with a 10 mm balloon dilator was successful. To discover objects, the biliary tree was swept with a 15 mm balloon starting at the bifurcation. A small amount of sludge was swept from the duct. The duct was lavaged with copious amounts of saline. The total fluoroscopy exposure time was 2 minutes and 41 seconds. Impression: - A medium amount of food (residue) in the stomach. - Retained food in the duodenum. - The major papilla was located entirely within a diverticulum. - Prior biliary endoscopic sphincterotomy appeared open. - Common bile duct was successfully dilated - The biliary tree was swept and sludge was found. Recommendation: - Return patient to [facility] for [facility] care. Rory Tomlin M.D. Rory Tomlin MD 01/28/2017 8:47:01 AM This report has been signed electronically. Note Initiated On: 01/28/2017 7:02 AM I attest to the content of the Intraoperative Record and orders documented therein, exceptions below Dictated: 01/28/17 0702 Signed: 01/28/17 1508 The status of this report is Signed. Draft = Not yet reviewed or approved by Medical Physician. Signed = Reviewed and approved by Medical Physician. <ConsultingPhyMNE>f pt consult dr don</ConsultingPhyMNE> <FamilyPhyMNE>f pt fam dr don</FamilyPhyMNE> <OtherPhyMNE [~ rep ct add3]] ERCP BILIARY DUCTAL CLINICAL HISTORY: ERCP IN OR. Bile duct dilatation. COMPARISON STUDY: Abdominal ultrasound 01/26/2017. FLUOROSCOPY TIME: 161 seconds. 5 images submitted.. FINDINGS: The endoscope is seen at the second portion of the duodenum. The ampulla was cannulated. A guidewire was placed into the common bile duct and intrahepatic ducts with contrast injected. There is a distended common bile duct and distended intrahepatic bile ducts. A balloon sweep was performed. IMPRESSION: Fluoroscopy provided for a balloon sweep of the common bile duct. Electronically signed by: Saurabh Bains M.D. 01/28/2017 8:49 AM Dictated Date/Time: 01/28/2017 8:47 AM The status of this report is Signed. Draft = Not yet reviewed or approved by Radiologist. Signed = Reviewed and approved by Radiologist. (Mike Forte MD) Medication Reconciliation New Medications: Ciprofloxacin Tab (Cipro) 250 Mg Tab 500 MG PO BID for 5 Days, BTL 0 Refills Metoclopramide HCl (Metoclopramide HCl) 5 Mg Tab 5 MG PO AC for 14 Days, TAB Continued Medications: Calcium Carbonate-Vitamin D (Calcium + D) 1 Tab Tab 1 TAB PO DAILY Ciprofloxacin (Ciprofloxacin HCl) 1 Homepack Ea 1 TAB PO DIRECTED PRN for Pain, #15 TAKE WHEN HAVING SYMPTOMS OF POSSIBLE BILE DUCT CLOGGED. Enteral Nutrition Formula (Ensure Plus Vanilla) 1 Can Liqd 1 CAN PO DAILY, CAN Fiber Laxative (Fiber Laxative) Ea 1 DOSE PO DAILY PRN for Constipation WAFER Folic Acid (Folvite) 1 Mg Tab 1 MG PO QAM, TAB Multivitamin (Multivitamin) Tab 1 TAB PO QAM, TAB Omeprazole (Omeprazole) 20 Mg Tab 20 MG PO BID Tamsulosin Hcl (Flomax) 0.4 Mg Cap 0.4 MG PO HS, CAP Ursodiol (Actigall) 300 Mg Cap 300 MG PO BID, CAP Zoledronic Acid (Reclast) Unknown Strength Inj 1 DOSE YEARLY Discharge Exam Patient was seen at the bedside. He was lying down comfortably on the bed. He states that he is feeling better and denies any complaints. Review of Systems: Constitutional: No chills, No weakness Respiratory: No cough, No dyspnea at rest, No dyspnea on exertion, No shortness of breath, No sputum Cardiovascular: No chest pain, No edema Abdomen: No constipation, No diarrhea, No nausea, No pain, No vomiting Musculoskeletal: No joint pain, No muscle pain Genitourinary - Male: No dysuria, No urinary frequency, No urinary urgency Neurologic: No numbness/tingling, No weakness Endocrine: No fatigue Integumentary: No rash (Mike Forte MD) Review of Systems: Constitutional: No fever Respiratory: No shortness of breath Cardiovascular: No chest pain Abdomen: No nausea, No pain, No vomiting Physical Exam: General Appearance: no apparent distress Respiratory/Chest: lungs clear, no respiratory distress Cardiovascular: regular rate, rhythm Abdomen / GI: normal bowel sounds, non tender, soft Neurologic/Psychiatric: alert, oriented x 3 Skin: + jaundice (mostly resolved) (Debbie Alfaro M.D.) Hospital Course This is a 86 y/o male with hx of gall stones s/p cholecystectomy, cholangitis, recurrent choledocholithiasis requiring multiple ERCPs with sphincterotomy ( most recent ERCP 2/20/17), 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 Patient also has hx of gram negative bacteremia required ERCP with sphincterotomies. In ED found to have elevated LFTs. * Recurrent ascending cholangitis Patient was admitted on Tele and GI was consulted. Abd US (01/26) showed intra and extrahepatic biliary ductal dilatation as well as pneumobilia. Hep A, B and C were negative. ERCP was performed, which showed open prior biliary endoscopic sphincterotomy. Dilation of the common bile duct was performed. LFTs trended down after ERCP. Patient remain asymptomatic through out the hospital course. Patient was initially started on Unasyn 3gm and on discharge he was given Ceftriaxone 500mg BID X5days. Also prescribed Reglan 5mg per GI recommendation. The etiology of recurrent cholangitis is not clear. Per GI on ERCP he was noted to have food residue at his duodenal diverticulum, which questionable be the cause of his recurrent cholangitis. PT/OT was consulted before discharge. Resumed all the home medications. Patient was instructed to follow up with the PCP next week and have LFTs lab works done. Total Time Spent: Greater than 30 minutes This includes examination of the patient, discharge planning, medication reconciliation, and communication with other providers. (Mike Forte MD) I have reviewed the medical record and performed a history and physical examination of this patient today. I have discussed the case with Dr Forte. The above note reflects my findings, conclusions, and recommendations. Total Time Spent: Greater than 30 minutes (35 min) (Debbie Alfaro M.D.) Discharge Instructions Please refer to the electronic Patient Visit Report (Discharge Instructions) for additional information. (Mike Forte MD) Additional Copies To Román Miranda M.D.
[2017-07-23] MEDS ORDERED: METR-163 PO (14:30)
[2017-07-23] MEDS ORDERED: CPR500 PO (14:30)
== END 2017-01-29 15:25 | disposition home or self-care (01) | DRG 445 ==
LOC: ENRESERVTM → ENRESERVDT → CANRESERV → C.EDB 12:38 → C.MED 17:08
PROVIDERS: ADMIT Internal Medicine; ATTEND Family Medicine
PROC: BF101ZZ Fluoroscopy of Bile Ducts using Low Osmolar Contrast (ICD-10-PCS; 2017-01-28)
PROC: 0F798ZZ Dilation of Common Bile Duct, Via Natural or Artificial Opening Endoscopic (ICD-10-PCS; principal; 2017-01-28 07:15)
DX: K80.30 Calculus of bile duct with cholangitis, unspecified, without obstruction (principal); Z96.659 Presence of unspecified artificial knee joint; Z90.49 Acquired absence of other specified parts of digestive tract; D64.9 Anemia, unspecified; Z83.3 Family history of diabetes mellitus; Z82.3 Family history of stroke; Z88.8 Allergy status to other drugs, medicaments and biological substances; Z66 Do not resuscitate; M81.0 Age-related osteoporosis without current pathological fracture; Z88.0 Allergy status to penicillin; Z79.899 Other long term (current) drug therapy; M34.1 CR(E)ST syndrome; K21.9 Gastro-esophageal reflux disease without esophagitis; K82.8 Other specified diseases of gallbladder; N40.0 Benign prostatic hyperplasia without lower urinary tract symptoms; K57.90 Diverticulosis of intestine, part unspecified, without perforation or abscess without bleeding

== ENCOUNTER → 2017-05-27 | Outpatient (CLI) | payer OTHER ==
[~2017-05-27] MED LIST changes: +ACET-1311 PO; +ASPEC81 PO; +CIPR1TAB11 PO; +CPR500 PO; +METO5TAB3 PO; +METR-163 PO; +TAMS0.4C38 PO; -TAMS0.4C59 PO; +ULT50X PO
== END | disposition home or self-care (01) ==
LOC: C.LAB1850 13:28
PROVIDERS: ATTEND Internal Medicine Pulmonary Disease
DX: J84.10 Pulmonary fibrosis, unspecified (principal)

== ENCOUNTER 2017-06-22 06:33 | Emergency (ER) | payer OTHER ==
[~2017-06-22] VITALS: Ht 162.6 cm; Wt 64.4 kg
[~2017-06-22 06:33] MED LIST changes: -ACET-1311 PO; -ASPEC81 PO; -CPR500 PO; -METR-163 PO; -ULT50X PO
[2017-06-22 06:36] VITALS: TEMP 36.5; Ht 162.6 cm; Wt 64.4 kg
--- NOTE | 2017-06-22 07:29 | EMERGENCY ROOM VISIT NOTE ---
History Report prepared by Wale: Isidra Lang Under the Supervision of: Dr. Isidoro Winslow M.D. First contact with patient: 07:01 Chief Complaint: OTHER COMPLAINT Stated Complaint: LIVER PROBLEMS-BLOOD WORK History of Present Illness The patient is a 86 year old male who presents to the Emergency Room for a GI assessment. The patient states that he has chronic problems with his liver and follows closely with Dr. Moore of gastroenterology. 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 He has been given Cipro PRN by Dr. Moore and told to start taking the antibiotic if he starts to get fevers or chills and go to the ED for further evaluation. The patient states that he woke up in the middle of the night last night and felt a "shivering" in his stomach. This sensation resolved on its own after about 1 minute. He states that this is typically how he feels before his liver "starts acting up." The patient denies any recent fevers or chills. He denies any urinary symptoms or problems moving his bowels. He has been eating normally. Source of History: patient, family (daughter) Onset: [employer] Position: abdomen Quality: other ("shivering") Timing: resolved Modifying Factors (Relieving): other (time) Associated Symptoms: No fevers, No chills, No urinary symptoms Review of Systems All systems have been listed, reviewed, and are negative other than those previously mentioned. Please see Additional Medical History Sheet. Past Medical & Surgical Medical Problems: (1) Abdominal discomfort (2) Acid reflux (3) Anemia (4) bactremia with G neg , source is likely biliary track infection, (5) CREST syndrome (6) Nausea & vomiting (7) Pancreatitis (8) Pancreatitis (9) Repair of inguinal hernia (10) RUQ abdominal pain Surgical Problems: (1) History of appendectomy (2) History of cholecystectomy (3) History of knee replacement Family History Diabetes mellitus Stroke Social History Smoking Status: Never Smoker Alcohol Use: none Drug Use: none Marital Status: Housing Status: lives with family Occupation Status: retired Current/Historical Medications Scheduled Calcium Carbonate-Vitamin D (Calcium + D), 1 TAB PO DAILY Enteral Nutrition Formula (Ensure Plus Vanilla), 1 CAN PO DAILY Folic Acid (Folvite), 1 MG PO QAM Multivitamin (Multivitamin), 1 TAB PO QAM Omeprazole (Omeprazole), 20 MG PO BID Tamsulosin Hcl (Flomax), 0.4 MG PO HS Ursodiol (Actigall), 300 MG PO BID Zoledronic Acid (Reclast), 1 DOSE YEARLY Scheduled PRN Ciprofloxacin (Ciprofloxacin HCl), 250 MG PO UD PRN for Pain or Fever Fiber Laxative (Fiber Laxative), 1 DOSE PO DAILY PRN for Constipation Allergies Coded Allergies: No Known Allergies (Unverified , 06/22/17) Physical Exam Vital Signs Date Time Temp Pulse Resp B/P (MAP) Pulse Ox O2 Delivery O2 Flow Rate FiO2 06/22/17 10:30 73 17 120/95 99 06/22/17 08:40 68 18 121/63 97 Room Air 06/22/17 06:36 36.5 85 20 102/70 97 Room Air Physical Exam GENERAL: Patient awake, alert, oriented x 3. Patient is in no acute distress. Patient follows commands. Patient does not appear toxic. Patient is adequately hydrated and well-nourished. SKIN: No erythema, pallor, cyanosis or rash HEENT: Normal head, pupils equal, reactive to light and accommodation. Hearing aids bilaterally. Oral cavity and posterior pharynx appear normal. Neck: Without adenopathy, no neck vein distention. LUNGS: Clear to auscultation. No wheezes, no rales, no rhonchi. HEART: No murmurs. No gallops. No rubs ABDOMEN: No masses, no rebound, no hepatomegaly or splenomegaly. EXTREMITIES: No signs of trauma. Scar on his right knee. No pedal or pretibial edema. No calf or thigh tenderness. NEUROLOGIC: Cranial nerves II-XII within normal limits. No gross motor sensory function deficits. Medical Decision & Procedures Laboratory Results 06/22/17 07:26 Red Blood Count 4.79, Mean Corpuscular Volume 90.6, Mean Corpuscular Hemoglobin 28.4, Mean Corpuscular Hemoglobin Concent 31.3, Mean Platelet Volume 9.0, Neutrophils (%) (Auto) 71.1, Lymphocytes (%) (Auto) 11.1, Monocytes (%) (Auto) 15.7, Eosinophils (%) (Auto) 1.6, Basophils (%) (Auto) 0.4, Neutrophils # (Auto ) 4.95, Lymphocytes # (Auto) 0.77, Monocytes # (Auto) 1.09, Eosinophils # (Auto ) 0.11, Basophils # (Auto) 0.03 06/22/17 07:26 Test 06/22/17 07:26 06/22/17 07:35 White Blood Count 6.96 K/uL (4.8-10.8) Red Blood Count 4.79 M/uL (4.7-6.1) Hemoglobin 13.6 g/dL (14.0-18.0) Hematocrit 43.4 % (42-52) Mean Corpuscular Volume 90.6 fL (80-100) Mean Corpuscular Hemoglobin 28.4 pg (25-34) Mean Corpuscular Hemoglobin Concent 31.3 g/dl (32-36) Platelet Count 201 K/uL (130-400) Mean Platelet Volume 9.0 fL (7.4-10.4) Neutrophils (%) (Auto) 71.1 % Lymphocytes (%) (Auto) 11.1 % Monocytes (%) (Auto) 15.7 % Eosinophils (%) (Auto) 1.6 % Basophils (%) (Auto) 0.4 % Neutrophils # (Auto) 4.95 K/uL (1.4-6.5) Lymphocytes # (Auto) 0.77 K/uL (1.2-3.4) Monocytes # (Auto) 1.09 K/uL (0.11-0.59) Eosinophils # (Auto) 0.11 K/uL (0-0.5) Basophils # (Auto) 0.03 K/uL (0-0.2) RDW Standard Deviation 54.8 fL (36.4-46.3) RDW Coefficient of Variation 16.5 % (11.5-14.5) Immature Granulocyte % (Auto) 0.1 % Immature Granulocyte # (Auto) 0.01 K/uL (0.00-0.02) Anion Gap 5.0 mmol/L (3-11) Est Creatinine Clear Calc Drug Dose 42.8 ml/min Estimated GFR () 77.5 Estimated GFR (Non- 66.9 BUN/Creatinine Ratio 19.0 (10-20) Calcium Level 9.0 mg/dl (8.5-10.1) Total Bilirubin 1.9 mg/dl (0.2-1) Aspartate Amino Transf (AST/SGOT) 41 U/L (15-37) Alanine Aminotransferase (ALT/SGPT) 43 U/L (12-78) Alkaline Phosphatase 61 U/L (45-117) Total Protein 7.2 gm/dl (6.4-8.2) Albumin 3.6 gm/dl (3.4-5.0) Globulin 3.6 gm/dl (2.5-4.0) Albumin/Globulin Ratio 1.0 (0.9-2) Lipase 175 U/L (73-393) Urine Color DK YELLOW Urine Appearance CLEAR (CLEAR) Urine pH 6.5 (4.5-7.5) Urine Specific [place] 1.016 (1.000-1.030) Urine Protein NEG (NEG) Urine Glucose (UA) NEG (NEG) Urine Ketones NEG (NEG) Urine Occult Blood NEG (NEG) Urine Nitrite NEG (NEG) Urine Bilirubin NEG (NEG) Urine Urobilinogen NEG (NEG) Urine Leukocyte Esterase NEG (NEG) Laboratory results as stated above per my review. ED Course 0701: Past medical records reviewed. The patient was evaluated in room B3B. A complete history and physical examination was performed. 1021: I spoke with Megan Vanessa PA-C with Dr. Moore's office. We discussed the patient's case. She recommended continuing the antibiotics and having the patient follow-up in the office as an outpatient. 1037: I reassessed the patient at this time. He is feeling better and resting comfortably. I discussed the results and treatment plan with the patient and his daughter. I answered all pertaining questions that they had. They expressed understanding and verbalized agreement. The patient will be discharged home. Medical Decision Differential diagnoses includes ascending cholangitis, pancreatitis, biliary obstruction, peptic ulcer disease, gastritis. Old records were reviewed. Labs from today were also reviewed. His bilirubin remains slightly elevated but less than it was in the past. Transaminases are also less than they were before. I do not believe this patient has pancreatitis or cholangitis at this time. The patient already started ciprofloxacin and will continue that medication for at least 7 days. I discussed care with GI who can follow the patient as an outpatient. Medication Reconcilliation Current Medication List: was personally reviewed by me Blood Pressure Screening Patient's blood pressure: Normal blood pressure Consults Time Called: [phone] Consulting Physician: Megan Vanessa PA-C Returned Call: [phone] I spoke with Megan Vanessa PA-C with Dr. Moore's office. We discussed the patient's case. She recommended continuing the antibiotics and having the patient follow-up in the office as an outpatient. Impression Primary Impression: History of cholangitis Scribe Attestation The scribe's documentation has been prepared under my direction and personally reviewed by me in its entirety. I confirm that the note above accurately reflects all work, treatment, procedures, and medical decision making performed by me. Departure Information Dispostion Home / Self-Care Referrals Román Miranda M.D. (PCP) Cornell Moore, DO Forms HOME CARE DOCUMENTATION FORM, IMPORTANT VISIT INFORMATION, WORK / SCHOOL INSTRUCTIONS Patient Instructions My [facility] Additional Instructions Continue ciprofloxacin twice a day for 7 days. Follow-up with Dr. Moore's office within the next 10 days. Continue all of your current medications as prescribed.
[2017-06-22 07:38] LABS: HEMATOCRIT 43.4 % (42-52); MEAN CELL VOLUME 90.6 fL (80-100); MEAN CORPUSCULAR HEMOGLOBIN 28.4 pg (25-34); MEAN CORPUSCULAR HGB CONC 31.3 g/dl (32-36); PLATELET COUNT 201 K/uL (130-400); RED BLOOD COUNT 4.79 M/uL (4.7-6.1); WHITE BLOOD COUNT 6.96 K/uL (4.8-10.8)
[2017-06-22 07:55] LABS: POTASSIUM 4.2 mmol/L (3.5-5.1)
[2017-06-22] MEDS ORDERED: CPR500 PO (07:56)
[2017-06-22 08:07] LABS: BASO % 0.4 %; BASO ABS # 0.03 K/uL (0-0.2); COMPLETE YES; EOS % 1.6 %; IG% 0.1 %; LYMPH % 11.1 %; LYMPH ABS # 0.77 K/uL (1.2-3.4); MONO % 15.7 %; NEUT % 71.1 %
[2017-06-22 08:10] LABS: URINE APPEARANCE CLEAR (CLEAR); URINE BILIRUBIN NEG (NEG); URINE COLOR DK YELLOW; URINE NITRITE NEG (NEG); URINE PH 6.5 (4.5-7.5); URINE SPECIFIC GRAVITY 1.016 (1.000-1.030); UROBILINOGEN NEG (NEG); ZZUR CULT IF INDIC CLEAN CATCH NO
[2017-06-22 08:12] LABS: MANUAL MICROSCOPIC REQUIRED? NO; REVIEW REQ? NO
[2017-06-22 10:30] VITALS: BP 120/95; PULSE 73; O2SAT 99
[2017-07-23] MEDS ORDERED: CPR500 PO (14:30)
[2017-07-23] MEDS ORDERED: METR-163 PO (14:30)
[2017-09-02] MEDS ORDERED: ACET-1311 PO (07:56)
== END 2017-06-22 11:00 | disposition home or self-care (01) ==
LOC: C.EDB 06:37
DX: K83.0 Cholangitis (principal); K21.9 Gastro-esophageal reflux disease without esophagitis; D64.9 Anemia, unspecified; M34.1 CR(E)ST syndrome; K85.90 Acute pancreatitis without necrosis or infection, unspecified; Z83.3 Family history of diabetes mellitus; Z82.49 Family history of ischemic heart disease and other diseases of the circulatory system; Z79.899 Other long term (current) drug therapy

== ENCOUNTER 2017-07-21 18:44 | Inpatient (IN) | payer OTHER ==
[~2017-07-21] VITALS: Ht 162.6 cm; Wt 66.7 kg
[~2017-07-21 18:44] MED LIST changes: -CIPR1TAB11 PO; +CPR500 PO; -CPR500HP PO; -METO5TAB3 PO
[2017-07-21] MEDS ORDERED: SODIUM CHLORIDE 0.9% 1000ML 1,000 ML IV STA (20:54)
[2017-07-21] MEDS ORDERED: CEFTRIAXONE SOD INJ 1 GM ADDVIAL IV STA (20:56)
--- NOTE | 2017-07-21 21:31 | DIAGNOSTIC IMAGING REPORT ---
CHEST ONE VIEW PORTABLE CLINICAL HISTORY: 86 years-old Male presenting with EVALUATE ALTERED MENTAL STATUS/WEAKNESS. TECHNIQUE: Portable upright AP view of the chest was obtained. COMPARISON: 01/26/2017. FINDINGS: Atherosclerosis of aortic arch. Prominent cardiac silhouette, which may in part be due to mildly low lung volumes with hypoventilatory changes. Elevation of the right hemidiaphragm. Interval increase in reticular opacities most prominently at the right lung base, although more subtle reticular opacities noted elsewhere in the right lung and at the left lung base, similar in distribution to prior exam. No large effusion or pneumothorax. Osseous structures normal. Upper abdomen normal. IMPRESSION: 1. Interval increase in right basilar opacities with associated elevation the right hemidiaphragm. Pneumonia cannot be excluded. This is on background of chronic lung disease, which is more severe in the right lung. 2. Suggestion of cardiomegaly. Electronically signed by: Román Elizabeth M.D. 07/21/2017 9:30 PM Dictated Date/Time: 07/21/2017 9:27 PM
[2017-07-21 21:47] LABS: HEMATOCRIT 40.5 % (42-52); MEAN CELL VOLUME 90.4 fL (80-100); MEAN CORPUSCULAR HEMOGLOBIN 30.6 pg (25-34); MEAN CORPUSCULAR HGB CONC 33.8 g/dl (32-36); MEAN PLATELET VOLUME 9.6 fL (7.4-10.4); PLATELET COUNT 192 K/uL (130-400); RED BLOOD COUNT 4.48 M/uL (4.7-6.1); WHITE BLOOD COUNT 9.48 K/uL (4.8-10.8)
[2017-07-21 21:56] LABS: PARTIAL THROMBOPLASTIN RATIO 0.9; PROTHROMBIN TIME (PATIENT) 10.8 SECONDS (9.0-12.0)
[2017-07-21 22:04] LABS: BLOOD UREA NITROGEN 23 mg/dl (7-18); CALCIUM 9.5 mg/dl (8.5-10.1); CARBON DIOXIDE 31 mmol/L (21-32); CHLORIDE 104 mmol/L (98-107); GLUCOSE 116 mg/dl (70-99); MAGNESIUM 1.8 mg/dl (1.8-2.4); SODIUM 141 mmol/L (136-145)
[2017-07-21 22:12] LABS: ALKALINE PHOSPHATASE 124 U/L (45-117); ALT/SGPT 237 U/L (12-78); AST/SGOT 383 U/L (15-37); CKMB/CK RATIO 2.1 (0-3.0)
[2017-07-21 22:23] LABS: BASO % 0.1 %; BASO ABS # 0.01 K/uL (0-0.2); COMPLETE YES; EOS % 0.1 %; IG% 0.3 %; LYMPH % 2.3 %; LYMPH ABS # 0.22 K/uL (1.2-3.4); MONO % 5.9 %; NEUT % 91.3 %
[2017-07-21 22:51] LABS: MANUAL MICROSCOPIC REQUIRED? NO; REVIEW REQ? NO; URINE APPEARANCE CLEAR (CLEAR); URINE BILIRUBIN 1+ (NEG); URINE COLOR DK YELLOW; URINE EPITHELIAL CELL AUTO 0-5 /lpf (0-5); URINE NITRITE NEG (NEG); URINE PH 6.5 (4.5-7.5); URINE SPECIFIC GRAVITY 1.017 (1.000-1.030); UROBILINOGEN NEG (NEG); ZZUR CULT IF INDIC CLEAN CATCH NO
--- NOTE | 2017-07-21 23:36 | EMERGENCY ROOM VISIT NOTE ---
History Report prepared by Wale: Zach Hammonds Under the Supervision of: Dr. Sven Ward D.O. First contact with patient: 20:45 Chief Complaint: NAUSEA Stated Complaint: CHILLS-NAUSEA Nursing Triage Summary: "I have trouble with my liver. I have the shakes and nausea but I don't have a fever" Pt reports sx started at 1400 today History of Present Illness The patient is a 86 year old male who presents to the Emergency Room with complaints of nausea that began 6 hours ago. At this time, the patient was on a walk when he noticed he was getting weak. He then began to experience the nausea , intermittent chills, and a cough. He had some episodes of emesis as well. 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 The symptoms that he presents with today are similar to those of his blocked bile duct. He denies any fevers, chest pain, abdominal pain, or leg swelling/pain. Source of History: patient Onset: 6 hours ago Position: other () Symptom Intensity: moderate Quality: other (Nausea) Timing: constant Associated Symptoms: + chills, + vomiting, + weakness, No fevers, No abdominal pain Review of Systems See HPI for pertinent positives & negatives. A total of 10 systems reviewed and were otherwise negative. Past Medical & Surgical Medical Problems: (1) Abdominal discomfort (2) Acid reflux (3) Anemia (4) bactremia with G neg , source is likely biliary track infection, (5) CREST syndrome (6) Nausea & vomiting (7) Pancreatitis (8) Pancreatitis (9) Repair of inguinal hernia (10) RUQ abdominal pain Surgical Problems: (1) History of appendectomy (2) History of cholecystectomy (3) History of knee replacement Family History Diabetes mellitus Stroke Social History Smoking Status: Never Smoker Alcohol Use: none Drug Use: none Marital Status: Housing Status: lives with family Occupation Status: retired Current/Historical Medications Scheduled Calcium Carbonate-Vitamin D (Calcium + D), 1 TAB PO DAILY Enteral Nutrition Formula (Ensure Plus Vanilla), 1 CAN PO DAILY Folic Acid (Folvite), 1 MG PO QAM Multivitamin (Multivitamin), 1 TAB PO QAM Omeprazole (Omeprazole), 20 MG PO BID Tamsulosin Hcl (Flomax), 0.4 MG PO HS Ursodiol (Actigall), 300 MG PO BID Zoledronic Acid (Reclast), 1 DOSE YEARLY Scheduled PRN Ciprofloxacin (Ciprofloxacin HCl), 250 MG PO UD PRN for Pain or Fever Fiber Laxative (Fiber Laxative), 1 DOSE PO DAILY PRN for Constipation Allergies Coded Allergies: No Known Allergies (Unverified , 06/22/17) Physical Exam Vital Signs Date Time Temp Pulse Resp B/P (MAP) Pulse Ox O2 Delivery O2 Flow Rate FiO2 07/21/17 22:28 84 18 116/68 96 Room Air 07/21/17 21:21 84 07/21/17 21:02 82 18 113/82 95 Room Air 07/21/17 18:52 36.9 95 20 121/71 95 Room Air Physical Exam CONSTITUTIONAL/VITAL SIGNS: Reviewed / noted above. GENERAL: Non-toxic in appearance. INTEGUMENTARY: Warm, dry, and [place]. HEAD: Normocephalic. EYES: without scleral icterus or trauma. ENT/OROPHARYNX: clear and moist. LYMPHADENOPATHY/NECK: Is supple without lymphadenopathy or meningismus. RESPIRATORY: Lungs clear and equal. CARDIOVASCULAR: Regular rate and rhythm. GI/ABDOMEN: Soft and nontender. No organomegaly or pulsatile mass. No rebound or guarding. Normal bowel sounds. EXTREMITIES: Warm and well perfused. BACK: No CVA tenderness. NEUROLOGICAL: Intact without focal deficits. PSYCHIATRIC: normal affect. MUSCULOSKELETAL: Normally developed with good muscle tone. Medical Decision & Procedures ER Provider Diagnostic Interpretation: Radiology results as stated below per my review and radiologist interpretation: CHEST ONE VIEW PORTABLE CLINICAL HISTORY: 86 years-old Male presenting with EVALUATE ALTERED MENTAL STATUS/WEAKNESS. TECHNIQUE: Portable upright AP view of the chest was obtained. COMPARISON: 01/26/2017. FINDINGS: Atherosclerosis of aortic arch. Prominent cardiac silhouette, which may in part be due to mildly low lung volumes with hypoventilatory changes. Elevation of the right hemidiaphragm. Interval increase in reticular opacities most prominently at the right lung base, although more subtle reticular opacities noted elsewhere in the right lung and at the left lung base, similar in distribution to prior exam. No large effusion or pneumothorax. Osseous structures normal. Upper abdomen normal. IMPRESSION: 1. Interval increase in right basilar opacities with associated elevation the right hemidiaphragm. Pneumonia cannot be excluded. This is on background of chronic lung disease, which is more severe in the right lung. 2. Suggestion of cardiomegaly. Electronically signed by: Román Elizabeth M.D. 07/21/2017 9:30 PM Dictated Date/Time: 07/21/2017 9:27 PM Laboratory Results 07/21/17 21:25 Red Blood Count 4.48, Mean Corpuscular Volume 90.4, Mean Corpuscular Hemoglobin 30.6, Mean Corpuscular Hemoglobin Concent 33.8, Mean Platelet Volume 9.6, Neutrophils (%) (Auto) 91.3, Lymphocytes (%) (Auto) 2.3, Monocytes (%) (Auto) 5.9, Eosinophils (%) (Auto) 0.1, Basophils (%) (Auto) 0.1, Neutrophils # (Auto) 8.65, Lymphocytes # (Auto) 0.22, Monocytes # (Auto) 0.56, Eosinophils # (Auto) 0.01, Basophils # (Auto) 0.01 07/21/17 21:25 Test 07/21/17 21:25 07/21/17 22:41 White Blood Count 9.48 K/uL (4.8-10.8) Red Blood Count 4.48 M/uL (4.7-6.1) Hemoglobin 13.7 g/dL (14.0-18.0) Hematocrit 40.5 % (42-52) Mean Corpuscular Volume 90.4 fL (80-100) Mean Corpuscular Hemoglobin 30.6 pg (25-34) Mean Corpuscular Hemoglobin Concent 33.8 g/dl (32-36) Platelet Count 192 K/uL (130-400) Mean Platelet Volume 9.6 fL (7.4-10.4) Neutrophils (%) (Auto) 91.3 % Lymphocytes (%) (Auto) 2.3 % Monocytes (%) (Auto) 5.9 % Eosinophils (%) (Auto) 0.1 % Basophils (%) (Auto) 0.1 % Neutrophils # (Auto) 8.65 K/uL (1.4-6.5) Lymphocytes # (Auto) 0.22 K/uL (1.2-3.4) Monocytes # (Auto) 0.56 K/uL (0.11-0.59) Eosinophils # (Auto) 0.01 K/uL (0-0.5) Basophils # (Auto) 0.01 K/uL (0-0.2) RDW Standard Deviation 54.6 fL (36.4-46.3) RDW Coefficient of Variation 16.5 % (11.5-14.5) Immature Granulocyte % (Auto) 0.3 % Immature Granulocyte # (Auto) 0.03 K/uL (0.00-0.02) Prothrombin Time 10.8 SECONDS (9.0-12.0) Prothromb Time International Ratio 1.0 (0.9-1.1) Activated Partial Thromboplast Time 23.6 SECONDS (21.0-31.0) Partial Thromboplastin Ratio 0.9 Anion Gap 6.0 mmol/L (3-11) Est Creatinine Clear Calc Drug Dose 35.7 ml/min Estimated GFR () 62.2 Estimated GFR (Non- 53.7 BUN/Creatinine Ratio 19.0 (10-20) Calcium Level 9.5 mg/dl (8.5-10.1) Magnesium Level 1.8 mg/dl (1.8-2.4) Total Bilirubin 2.5 mg/dl (0.2-1) Direct Bilirubin 1.4 mg/dl (0-0.2) Aspartate Amino Transf (AST/SGOT) 383 U/L (15-37) Alanine Aminotransferase (ALT/SGPT) 237 U/L (12-78) Alkaline Phosphatase 124 U/L (45-117) Total Creatine Kinase 73 U/L (39-308) Creatine Kinase MB 1.5 ng/ml (0.5-3.6) Creatine Kinase MB Ratio 2.1 (0-3.0) Troponin I < 0.015 ng/ml (0-0.045) Total Protein 6.9 gm/dl (6.4-8.2) Albumin 3.6 gm/dl (3.4-5.0) Lipase 166 U/L (73-393) Thyroid Stimulating Hormone (TSH) 1.390 uIu/ml (0.300-4.500) Urine Color DK YELLOW Urine Appearance CLEAR (CLEAR) Urine pH 6.5 (4.5-7.5) Urine Specific [place] 1.017 (1.000-1.030) Urine Protein NEG (NEG) Urine Glucose (UA) NEG (NEG) Urine Ketones NEG (NEG) Urine Occult Blood NEG (NEG) Urine Nitrite NEG (NEG) Urine Bilirubin 1+ (NEG) Urine Urobilinogen NEG (NEG) Urine Leukocyte Esterase TRACE (NEG) Urine WBC (Auto) 0 /hpf (0-5) Urine RBC (Auto) 0-4 /hpf (0-4) Urine Hyaline Casts (Auto) 0 /lpf (0-5) Urine Epithelial Cells (Auto) 0-5 /lpf (0-5) Urine Bacteria (Auto) NEG (NEG) Laboratory results as stated above per my review. Medications Administered Medications (Trade) Dose Ordered Sig/Alycia Route Start Time Stop Time Status Last Admin Dose Admin Sodium Chloride 1,000 ml @ 200 mls/hr Q5H STAT IV 07/21/17 20:54 07/22/17 01:53 07/21/17 20:54 200 MLS/HR Ceftriaxone Sodium (Rocephin Inj) 1 gm NOW STAT IV 07/21/17 20:56 07/21/17 20:57 DC 07/21/17 21:24 1 GM ECG Indication: nausea Rate (beats per minute): 82 Rhythm: normal sinus Findings: no acute ischemic change, no ectopy ED Course 2044: Previous medical records were reviewed. The patient was evaluated in room A12A. A complete history and physical examination was performed. 2053: Ordered Sodium Chloride 1000 ml @ 200 mls/hr IV 2055: Ordered Rocephin Inj 1 gm IV 2: On reevaluation, the patient is resting. I discussed the results and findings with him. He verbalized agreement of the treatment plan. I spoke with Dr. Richards of the [place] [facility]. The patient will be evaluated for further management and care. Medical Decision Differentials include: Acute coronary syndrome, myocardial infarction, CVA, TIA , anemia, infection, pneumonia, UTI, pyelonephritis, poor nutrition, dehydration , electrolyte disturbance, and hypoglycemia. This is an 86-year-old male who presents to the ED with a chief complaint of some shivers and feeling cold as well as a little nausea and vomiting. His symptoms started around 2:58 PM. He also felt weak. He felt like his symptoms were similar to the way he fell when he has had cholangitis in the past. The patient's exam was unremarkable. He has no abdominal tenderness. A CBC is normal, LFTs are elevated or he is treated with IV Rocephin and IV fluids. I spoke with the hospitalist, who will see the patient for further inpatient care. He has seen Dr. Moore in the past. Medication Reconcilliation Current Medication List: was personally reviewed by me Blood Pressure Screening Patient's blood pressure: Normal blood pressure Blood pressure disposition: Did not require urgent referral Consults Time Called: [phone] Consulting Physician: Dr. Maurice ROSAS Returned Call: [phone] Discussed the patient's case. The patient will be evaluated for further treatment and disposition. Impression Primary Impression: Cholangitis Scribe Attestation The scribe's documentation has been prepared under my direction and personally reviewed by me in its entirety. I confirm that the note above accurately reflects all work, treatment, procedures, and medical decision making performed by me. Departure Information Dispostion Being Evaluated By Hospitalist Referrals No Doctor, Assigned (PCP) Patient Instructions My [facility]
--- NOTE | 2017-07-22 00:08 | History and Physical ---
History & Physical Date & Time of Service: Jul 22, 2017 at 00:08 Chief Complaint: Chills-Nausea Primary Care Physician: Román Miranda M.D. History of Present Illness Source: patient, family 86-year-old male with a past medical history of scleroderma, CREST , status post cholecystectomy in 2012, recurrent cholangitis with multiple ERCPs with sphincterotomies, choledocholithiasis presented to the ER with complaints of nausea, vomiting, rigors which started today. Denies any abdominal pain. Most recent admission was in January 2017 with similar complaints and had an ERCP performed. Denies any fevers, chest pain, shortness of breath, diarrhea. Past Medical/Surgical History Medical Problems: (1) Abdominal discomfort Status: Resolved (2) Acid reflux Status: Chronic (3) Anemia Status: Chronic (4) bactremia with G neg , source is likely biliary track infection, Status: Resolved (5) CREST syndrome Status: Chronic (6) Nausea & vomiting Status: Resolved (7) Pancreatitis Status: Resolved (8) Pancreatitis Status: Chronic (9) Repair of inguinal hernia Status: Resolved (10) RUQ abdominal pain Status: Resolved Surgical Problems: (1) History of appendectomy Status: Resolved (2) History of cholecystectomy Status: Resolved (3) History of knee replacement Status: Resolved Family History Diabetes mellitus Stroke Social History Smoking Status: Never Smoker Drug Use: none Marital Status: Housing status: lives alone Occupational Status: retired Immunizations History of Influenza Vaccine: N/A History of Tetanus Vaccine?: Yes Tetanus Immunization Date: May 05, 2013 History of Pneumococcal: Yes Pneumococcal Date: Sep 04, 2012 History of Hepatitis B Vaccine: No Allergies Coded Allergies: No Known Allergies (Unverified , 07/22/17) Home Medications Scheduled Enteral Nutrition Formula (Ensure Plus Vanilla), 1 CAN PO DAILY Folic Acid (Folvite), 1 MG PO QAM Multivitamin (Multivitamin), 1 TAB PO QAM Omeprazole (Omeprazole), 20 MG PO BID Tamsulosin Hcl (Flomax), 0.4 MG PO HS Ursodiol (Actigall), 300 MG PO BID Zoledronic Acid (Reclast), 1 DOSE YEARLY Scheduled PRN Ciprofloxacin (Ciprofloxacin HCl), 250 MG PO UD PRN for Pain or Fever Review of Systems Constitutional: + chills, No fever Eyes: No worsening of vision ENT: No hearing loss Respiratory: No cough, No sputum, No shortness of breath Cardiovascular: No chest pain Abdomen: + nausea, + vomiting, No pain, No diarrhea Musculoskeletal: No joint pain Genitourinary - Male: No hematuria, No dysuria Neurologic: No memory loss, No paralysis Psychiatric: No depression symptoms Endocrine: No fatigue Hematologic / Lymphatic: No abnormal bleeding/bruising Physical Exam Vital Signs Date Time Temp Pulse Resp B/P (MAP) Pulse Ox O2 Delivery O2 Flow Rate FiO2 07/21/17 22:28 84 18 116/68 96 Room Air 07/21/17 21:21 84 07/21/17 21:02 82 18 113/82 95 Room Air 07/21/17 18:52 36.9 95 20 121/71 95 Room Air General Appearance: WD/WN, no apparent distress Eyes: normal inspection ENT: + pertinent finding (hearing loss) Neck: supple Respiratory/Chest: chest non-tender, lungs clear, normal breath sounds Cardiovascular: regular rate, rhythm Abdomen/GI: normal bowel sounds, non tender, soft Back: no CVA tenderness Extremities/Musculoskelatal: no pedal edema, normal range of motion Neurologic/Psych: alert, normal mood/affect, oriented x 3 Skin: normal color Diagnostics Laboratory Results Results Past 24 Hours Test 07/21/17 21:25 07/21/17 22:41 Range/Units White Blood Count 9.48 4.8-10.8 K/uL Red Blood Count 4.48 4.7-6.1 M/uL Hemoglobin 13.7 14.0-18.0 g/dL Hematocrit 40.5 42-52 % Mean Corpuscular Volume 90.4 80-100 fL Mean Corpuscular Hemoglobin 30.6 25-34 pg Mean Corpuscular Hemoglobin Concent 33.8 32-36 g/dl Platelet Count 192 130-400 K/uL Mean Platelet Volume 9.6 7.4-10.4 fL Neutrophils (%) (Auto) 91.3 % Lymphocytes (%) (Auto) 2.3 % Monocytes (%) (Auto) 5.9 % Eosinophils (%) (Auto) 0.1 % Basophils (%) (Auto) 0.1 % Neutrophils # (Auto) 8.65 1.4-6.5 K/uL Lymphocytes # (Auto) 0.22 1.2-3.4 K/uL Monocytes # (Auto) 0.56 0.11-0.59 K/uL Eosinophils # (Auto) 0.01 0-0.5 K/uL Basophils # (Auto) 0.01 0-0.2 K/uL RDW Standard Deviation 54.6 36.4-46.3 fL RDW Coefficient of Variation 16.5 11.5-14.5 % Immature Granulocyte % (Auto) 0.3 % Immature Granulocyte # (Auto) 0.03 0.00-0.02 K/uL Prothrombin Time 10.8 9.0-12.0 SECONDS Prothromb Time International Ratio 1.0 0.9-1.1 Activated Partial Thromboplast Time 23.6 21.0-31.0 SECONDS Partial Thromboplastin Ratio 0.9 Sodium Level 141 136-145 mmol/L Potassium Level 4.0 3.5-5.1 mmol/L Chloride Level 104 98-107 mmol/L Carbon Dioxide Level 31 21-32 mmol/L Anion Gap 6.0 3-11 mmol/L Blood Urea Nitrogen 23 7-18 mg/dl Creatinine 1.20 0.60-1.40 mg/dl Est Creatinine Clear Calc Drug Dose 35.7 ml/min Estimated GFR () 62.2 Estimated GFR (Non- 53.7 BUN/Creatinine Ratio 19.0 10-20 Random Glucose 116 70-99 mg/dl Calcium Level 9.5 8.5-10.1 mg/dl Magnesium Level 1.8 1.8-2.4 mg/dl Total Bilirubin 2.5 0.2-1 mg/dl Direct Bilirubin 1.4 0-0.2 mg/dl Aspartate Amino Transf (AST/SGOT) 383 15-37 U/L Alanine Aminotransferase (ALT/SGPT) 237 12-78 U/L Alkaline Phosphatase 124 45-117 U/L Total Creatine Kinase 73 39-308 U/L Creatine Kinase MB 1.5 0.5-3.6 ng/ml Creatine Kinase MB Ratio 2.1 0-3.0 Troponin I < 0.015 0-0.045 ng/ml Total Protein 6.9 6.4-8.2 gm/dl Albumin 3.6 3.4-5.0 gm/dl Lipase 166 73-393 U/L Thyroid Stimulating Hormone (TSH) 1.390 0.300-4.500 uIu/ml Urine Color DK YELLOW Urine Appearance CLEAR CLEAR Urine pH 6.5 4.5-7.5 Urine Specific [place] 1.017 1.000-1.030 Urine Protein NEG NEG Urine Glucose (UA) NEG NEG Urine Ketones NEG NEG Urine Occult Blood NEG NEG Urine Nitrite NEG NEG Urine Bilirubin 1+ NEG Urine Urobilinogen NEG NEG Urine Leukocyte Esterase TRACE NEG Urine WBC (Auto) 0 0-5 /hpf Urine RBC (Auto) 0-4 0-4 /hpf Urine Hyaline Casts (Auto) 0 0-5 /lpf Urine Epithelial Cells (Auto) 0-5 0-5 /lpf Urine Bacteria (Auto) NEG NEG Diagnostic Radiology CHEST ONE VIEW PORTABLE CLINICAL HISTORY: 86 years-old Male presenting with EVALUATE ALTERED MENTAL STATUS/WEAKNESS. TECHNIQUE: Portable upright AP view of the chest was obtained. COMPARISON: 01/26/2017. FINDINGS: Atherosclerosis of aortic arch. Prominent cardiac silhouette, which may in part be due to mildly low lung volumes with hypoventilatory changes. Elevation of the right hemidiaphragm. Interval increase in reticular opacities most prominently at the right lung base, although more subtle reticular opacities noted elsewhere in the right lung and at the left lung base, similar in distribution to prior exam. No large effusion or pneumothorax. Osseous structures normal. Upper abdomen normal. IMPRESSION: 1. Interval increase in right basilar opacities with associated elevation the right hemidiaphragm. Pneumonia cannot be excluded. This is on background of chronic lung disease, which is more severe in the right lung. 2. Suggestion of cardiomegaly. Electronically signed by: Román Elizabeth M.D. 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 Transaminitis and elevated bilirubin Likely secondary to cholangitis : - AST at 383, ALT 237, alkaline phosphatase 124, total bili 2.5 - Started on IV Rocephin and Flagyl - Gastroenterology consult for ERCP - Nothing by mouth in anticipation of procedure Scleroderma/CREST: Stable BPH: -Continue Flomax DVT prophylaxis: SCDs DO NOT RESUSCITATE Disposition: Admitted to Med Surg Resident Physician Supervision Note: I was present with Dr. Alvarez during the history and exam. I discussed the case with the resident and agree with the findings and plan as documented in the note. Any exceptions or clarifications are listed here: 86 y/o M Hx recurrent biliary obstruction - presents with abdominal discomfort and rigors - abnormal LFTs consistent with recurrent obstruction AAO x 3 S1,2 R CTAB NT currently No CCE No jaundice P: Pt will be treated with antibiotics pending GI eval and will likely be scheduled for ERCP Above discussed with pt, family, ER attending Documented By: Gabriel Richards Level of Care Med/Surg Resuscitation Status DO NOT RESUSCITATE VTE Prophylaxis Given or contraindicated: SCD's Resident Tracking Resident Involvement: Resident Care Provided Care Provided: Adult Hospital Medicine
[2017-07-22] MEDS ORDERED: ALUMINUM/MAGNESIUM/SIMETH (MAALOX MAX) 30 ML UDC PO PRN (00:15)
[2017-07-22] MEDS ORDERED: ACETAMINOPHEN 325 MG TAB PO PRN (00:15)
[2017-07-22] MEDS ORDERED: ONDANSETRON INJ 2 MG/ML 2 ML VIAL IV PRN ×2 (00:15→14:15)
[2017-07-22] MEDS ORDERED: MAGNESIUM HYDROXIDE SUSP 30 ML UDC PO PRN (00:15)
[2017-07-22 01:36] VITALS: BP 101/64; PULSE 86; TEMP 36.5; O2SAT 94; Ht 162.6 cm; Wt 66.7 kg
[2017-07-22] MEDS: METRONIDAZOLE / NSS 500 MG in PREMIXED NSS 100 ML IV SCH ×3 (01:51→20:02)
[2017-07-22] MEDS: SODIUM CHLORIDE 0.9% 1000ML 1,000 ML IV SCH ×2 (01:51→19:27)
[2017-07-22 07:58] VITALS: BP 92/55; PULSE 89; TEMP 36.7; O2SAT 98
[2017-07-22 08:16] LABS: HEMATOCRIT 37.5 % (42-52); MEAN CORPUSCULAR HEMOGLOBIN 28.4 pg (25-34); MEAN CORPUSCULAR HGB CONC 31.2 g/dl (32-36); MEAN PLATELET VOLUME 9.4 fL (7.4-10.4); PLATELET COUNT 179 K/uL (130-400); RED BLOOD COUNT 4.12 M/uL (4.7-6.1); WHITE BLOOD COUNT 13.38 K/uL (4.8-10.8)
[2017-07-22 08:46] LABS: BUN/CREATININE RATIO 22.8 (10-20); CALCIUM 8.4 mg/dl (8.5-10.1); CREATININE 0.85 mg/dl (0.60-1.40); POTASSIUM 3.7 mmol/L (3.5-5.1)
[2017-07-22 08:49] LABS: ALB/GLOB RATIO 0.9 (0.9-2)
[2017-07-22] MEDS: URSODIOL 300 MG CAP PO SCH ×2 (09:52→21:37)
[2017-07-22] MEDS: PANTOprazole SOD 40 MG TAB PO SCH ×2 (09:52→21:37)
--- NOTE | 2017-07-22 11:23 | Gastrointestinal Consultation ---
Gastrointestinal Consultation Date of Consultation: Jul 22, 2017 History of Present Illness Mr. Watts is a 86 year old male followed by Dr. Moore with a dx of recurrent cholangitis. He has been treated with ERCP sphincterotomy and stenting on several occasions, most recently in 01/2017, he was admitted to [facility] with a recurrent bout of cholangitis.Dr. Tomlin performed an ERCP and found a large quantity of retained food in his stomach and duodenum, including in a duodenal diverticulum. The prior sphinterotomy was balloon dilated to 10 mm and a small amount of sludge was swept from the duct. He has been asymptomatic since then until yesterday when he became ill, had one episode of vomiting and persistent chills. He stays at [place], called his daughter and was brought to ER. He was found to have elevated bilirubin (normal at 0.8 on 07/09/2017) and started on IV abx. He has been a bit hypotense, c/o mild lightheadedness upon standing, but otherwise feels well and is not having any pain. He has been afebrile since admission. Past Medical/Surgical History Medical Problems: (1) Bilirubinemia Status: Acute (2) Cholangitis Status: Acute (3) Cholangitis Status: Acute (4) Cholangitis Status: Acute (5) History of cholangitis Status: Acute (6) Nausea, vomiting, and diarrhea Status: Acute (7) Transaminitis Status: Acute (8) Vomiting Status: Acute Social History Problems: (1) Hx of cholecystectomy Status: Acute Family History Diabetes mellitus Stroke Social History Smoking Status: Never Smoker Alcohol Use: none Drug Use: none Marital Status: Housing Status: lives with family Occupation Status: retired Allergies Coded Allergies: No Known Allergies (Unverified , 07/22/17) Current Medications Home Meds and Scripts Medications Dose Route/Sig Max Daily Dose Days Date Category Dose Instructions Ciprofloxacin HCl (Ciprofloxacin) 500 Mg Tab 250 Mg PO UD PRN 06/22/17 Reported TAKE 250MG PO ONCE WHEN HAVING SYMPTOMS OF POSSIBLE BILE DUCT CLOGGING BEFORE COMING TO THE ER Flomax (Tamsulosin Hcl) 0.4 Mg Cap 0.4 Mg PO HS 01/26/17 Reported Reclast (Zoledronic Acid) Unknown Strength Inj 1 Dose YEARLY 11/08/16 Reported Ensure Plus Vanilla (Enteral Nutritional Formula) 1 Can Liqd 1 Can PO DAILY 11/07/15 Reported Actigall (Ursodiol) 300 Mg Cap 300 Mg PO BID 10/12/15 Reported Omeprazole 20 Mg Tab 20 Mg PO BID 07/01/13 Reported Multivitamin (Multivitamins) Tab 1 Tab PO QAM 07/01/13 Reported Folvite (Folic Acid) 1 Mg Tab 1 Mg PO QAM 07/01/13 Reported Review of Systems Constitutional: + see HPI Eyes: No see HPI, No worsening of vision, No eye pain, No redness, No discharge , No diplopia, No problem reported ENT: No see HPI, No hearing loss, No unusual epistaxis, No nasal symptoms, No sore throat, No tinnitus, No dental problems, No trouble swallowing, No pain on swallowing, No problem reported Respiratory: No see HPI, No cough, No sputum, No wheezing, No shortness of breath, No dyspnea on exertion, No dyspnea at rest, No hemoptysis, No problem reported Cardiac: No see HPI, No chest pain, No orthopnea, No PND, No edema, No claudication, No palpitations, No problem reported Abdomen: + see HPI Physical Exam Date Time Temp Pulse Resp B/P (MAP) Pulse Ox O2 Delivery O2 Flow Rate FiO2 07/22/17 08:00 Room Air 07/22/17 07:58 36.7 89 16 92/55 (67) 98 Room Air 07/22/17 01:36 36.5 86 17 101/64 94 Room Air 07/22/17 00:51 81 18 113/58 94 Room Air 07/21/17 22:28 84 18 116/68 96 Room Air 07/21/17 21:21 84 07/21/17 21:02 82 18 113/82 95 Room Air 07/21/17 18:52 36.9 95 20 121/71 95 Room Air General Appearance: WD/WN, + pertinent finding (yellow sclera) ENT: normal ENT inspection Neck: supple Respiratory/Chest: chest non-tender Cardiovascular: regular rate, rhythm, no edema Abdomen: normal bowel sounds Extremities: normal range of motion, non-tender Neurologic/Psych: online merchandising coordinator II-XII nml as tested Laboratory Results Last 24 Hours Test 07/21/17 21:25 07/21/17 22:41 07/22/17 07:51 White Blood Count 9.48 K/uL 13.38 K/uL Red Blood Count 4.48 M/uL 4.12 M/uL Hemoglobin 13.7 g/dL 11.7 g/dL Hematocrit 40.5 % 37.5 % Mean Corpuscular Volume 90.4 fL 91.0 fL Mean Corpuscular Hemoglobin 30.6 pg 28.4 pg Mean Corpuscular Hemoglobin Concent 33.8 g/dl 31.2 g/dl Platelet Count 192 K/uL 179 K/uL Mean Platelet Volume 9.6 fL 9.4 fL Neutrophils (%) (Auto) 91.3 % Lymphocytes (%) (Auto) 2.3 % Monocytes (%) (Auto) 5.9 % Eosinophils (%) (Auto) 0.1 % Basophils (%) (Auto) 0.1 % Neutrophils # (Auto) 8.65 K/uL Lymphocytes # (Auto) 0.22 K/uL Monocytes # (Auto) 0.56 K/uL Eosinophils # (Auto) 0.01 K/uL Basophils # (Auto) 0.01 K/uL RDW Standard Deviation 54.6 fL 55.5 fL RDW Coefficient of Variation 16.5 % 16.8 % Immature Granulocyte % (Auto) 0.3 % Immature Granulocyte # (Auto) 0.03 K/uL Prothrombin Time 10.8 SECONDS Prothromb Time International Ratio 1.0 Activated Partial Thromboplast Time 23.6 SECONDS Partial Thromboplastin Ratio 0.9 Sodium Level 141 mmol/L 143 mmol/L Potassium Level 4.0 mmol/L 3.7 mmol/L Chloride Level 104 mmol/L 108 mmol/L Carbon Dioxide Level 31 mmol/L 27 mmol/L Anion Gap 6.0 mmol/L 8.0 mmol/L Blood Urea Nitrogen 23 mg/dl 19 mg/dl Creatinine 1.20 mg/dl 0.85 mg/dl Est Creatinine Clear Calc Drug Dose 35.7 ml/min 50.3 ml/min Estimated GFR () 62.2 90.2 Estimated GFR (Non- 53.7 77.8 BUN/Creatinine Ratio 19.0 22.8 Random Glucose 116 mg/dl 101 mg/dl Calcium Level 9.5 mg/dl 8.4 mg/dl Magnesium Level 1.8 mg/dl Total Bilirubin 2.5 mg/dl 2.9 mg/dl Direct Bilirubin 1.4 mg/dl Aspartate Amino Transf (AST/SGOT) 383 U/L 253 U/L Alanine Aminotransferase (ALT/SGPT) 237 U/L 212 U/L Alkaline Phosphatase 124 U/L 98 U/L Total Creatine Kinase 73 U/L Creatine Kinase MB 1.5 ng/ml Creatine Kinase MB Ratio 2.1 Troponin I < 0.015 ng/ml Total Protein 6.9 gm/dl 5.9 gm/dl Albumin 3.6 gm/dl 2.8 gm/dl Lipase 166 U/L Thyroid Stimulating Hormone (TSH) 1.390 uIu/ml Urine Color DK YELLOW Urine Appearance CLEAR Urine pH 6.5 Urine Specific [place] 1.017 Urine Protein NEG Urine Glucose (UA) NEG Urine Ketones NEG Urine Occult Blood NEG Urine Nitrite NEG Urine Bilirubin 1+ Urine Urobilinogen NEG Urine Leukocyte Esterase TRACE Urine WBC (Auto) 0 /hpf Urine RBC (Auto) 0-4 /hpf Urine Hyaline Casts (Auto) 0 /lpf Urine Epithelial Cells (Auto) 0-5 /lpf Urine Bacteria (Auto) NEG Globulin 3.1 gm/dl Albumin/Globulin Ratio 0.9 Impression Patient is a 86 year old male with recurrent cholangitis, admitted with chills, emesis, and lab elevations concerning for ascending cholangitis. Plan -Agree with IV abx, appears to have recurrent cholangitis -Remain NPO -Plan for ERCP this afternoon with Dr. Moore
[2017-07-22] MEDS ORDERED: SUCCINYLCHOLINE 100MG/5ML SYR IV ONE (13:40)
[2017-07-22] MEDS ORDERED: FENTANYL CITRATE INJ 50 MCG/1 ML 2 ML VIAL ONE ×2 (13:40→15:56)
[2017-07-22] MEDS ORDERED: ONDANSETRON INJ 2 MG/ML 2 ML VIAL ONE (13:40)
[2017-07-22] MEDS ORDERED: LIDOCAINE HCL 2% 2 ML VIAL (20MG/ML) ONE (13:40)
[2017-07-22] MEDS ORDERED: ROCURONIUM BROMIDE 10 MG/ML 5 ML VIAL IV ONE (13:40)
[2017-07-22] MEDS ORDERED: PROPOFOL IV EMULSION 10 MG/ML 20 ML VIAL IV ONE (13:40)
[2017-07-22] MEDS ORDERED: DEXAMETHASONE SOD INJ 4 MG/ML VIAL ONE (13:40)
[2017-07-22] MEDS ORDERED: EpHEDrine SULFATE INJ 50 MG/ML AMP IV PRN (14:15)
[2017-07-22] MEDS ORDERED: FENTANYL CITRATE INJ 50 MCG/1 ML 2 ML VIAL IV PRN (14:15)
[2017-07-22] MEDS ORDERED: ATROPINE SULFATE 0.1 MG/ML 5ML SYR IV PRN (14:15)
[2017-07-22] MEDS ORDERED: INDOMETHACIN 50 MG SUPP PR ONE ×2 (15:13→15:30)
--- NOTE | 2017-07-22 15:16 | Endo History and Physical ---
History & Physical Date of Service: Jul 22, 2017. Chief Complaint: Abdominal pain / cholangitis Referring Physician: History of Present Illness Patient with a several year history of recurrent cholangitis for f/u ERCP today after presenting last evening with pain, fever and jaundice. Past Medical History Osteoporosis, Arthritis, Cancer, Hypertension, Liver Disease Past Surgical History Hx Cardiac Surgery: No Hx Abdominal Surgery: Yes (Multiple ERCP's, stent placements, Gallbladder removed) Hx Post-Op Nausea and Vomiting: No Hx Cancer Surgery: Yes (removal of skin ca) Hx Thoracic Surgery: No Hx Orthopedic: No Hx Urinary Tract Surgery: No Social History Smoking Status: Never Smoker Hx Substance Use: No Hx Alcohol Use: No Allergies Coded Allergies: No Known Allergies (Unverified , 07/22/17) Current Medications Reported Home Medications Medications Dose Route/Sig Max Daily Dose Days Date Category Dose Instructions Ciprofloxacin HCl (Ciprofloxacin) 500 Mg Tab 250 Mg PO UD PRN 06/22/17 Reported TAKE 250MG PO ONCE WHEN HAVING SYMPTOMS OF POSSIBLE BILE DUCT CLOGGING BEFORE COMING TO THE ER Flomax (Tamsulosin Hcl) 0.4 Mg Cap 0.4 Mg PO HS 01/26/17 Reported Reclast (Zoledronic Acid) Unknown Strength Inj 1 Dose YEARLY 11/08/16 Reported Ensure Plus Vanilla (Enteral Nutritional Formula) 1 Can Liqd 1 Can PO DAILY 11/07/15 Reported Actigall (Ursodiol) 300 Mg Cap 300 Mg PO BID 10/12/15 Reported Omeprazole 20 Mg Tab 20 Mg PO BID 07/01/13 Reported Multivitamin (Multivitamins) Tab 1 Tab PO QAM 07/01/13 Reported Folvite (Folic Acid) 1 Mg Tab 1 Mg PO QAM 07/01/13 Reported Vital Signs Weight (Kilograms): 66.700 Height (Feet): 5 Height (Inches): 4.00 Date Time Temp Pulse Resp B/P (MAP) Pulse Ox O2 Delivery O2 Flow Rate FiO2 07/22/17 08:00 Room Air 07/22/17 07:58 36.7 89 16 92/55 (67) 98 Room Air 07/22/17 01:36 36.5 86 17 101/64 94 Room Air 07/22/17 00:51 81 18 113/58 94 Room Air 07/21/17 22:28 84 18 116/68 96 Room Air 8/30/17 21:21 84 07/21/17 21:02 82 18 113/82 95 Room Air 07/21/17 18:52 36.9 95 20 121/71 95 Room Air Physical Exam General Appearance: + mild distress Respiratory/Chest: Auscultation: breath sounds normal Cardiovascular: Heart Auscultation: II/ CELINE Abdomen: Inspection & Palpation: soft, RUQ tenderness Assessment and Plan Patient with a history of recurrent cholangitis for repeat ERCP today. We have discussed the risks to include bleeding, infection, perforation, pain, pancreatitis and failed cannulation.
[2017-07-22] MEDS ORDERED: PHENYLEPHRINE HCL INJ 10 MG/ML VIAL ONE (16:14)
[2017-07-22] MEDS ORDERED: EpHEDrine SULFATE INJ 50 MG/ML AMP ONE (16:14)
--- NOTE | 2017-07-22 16:51 | GI REPORT ---
Procedure Date: 07/22/2017 3:18 PM Procedure: ERCP Indications: Abdominal pain of suspected biliary origin, Suspected ascending cholangitis Medicines: General Anesthesia Complications: No immediate complications. Estimated blood loss: Minimal. Estimated Blood Loss: Estimated blood loss was minimal. Procedure: Pre-Anesthesia Assessment: - Prior to the procedure, a History and Physical was performed, and patient medications, allergies and sensitivities were reviewed. The patient's tolerance of previous anesthesia was reviewed. - The risks and benefits of the procedure and the sedation options and risks were discussed with the patient. All questions were answered and informed consent was obtained. - Patient identification and proposed procedure were verified prior to the procedure by the physician, the nurse and the credit balance specialist. The procedure was verified in the procedure room. - Pre-procedure physical examination revealed no contraindications to sedation. - ASA Grade Assessment: III - A patient with severe systemic disease. - After reviewing the risks and benefits, the patient was deemed in satisfactory condition to undergo the procedure. - The anesthesia plan was to use general anesthesia. - Immediately prior to administration of medications, the patient was re-assessed for adequacy to receive sedatives. - The heart rate, respiratory rate, oxygen saturations, blood pressure, adequacy of pulmonary ventilation, and response to care were monitored throughout the procedure. - The physical status of the patient was re-assessed after the procedure. After obtaining informed consent, the scope was passed under direct vision. Throughout the procedure, the patient's blood pressure, pulse, and oxygen saturations were monitored continuously. The scope was introduced through the mouth, and advanced to the duodenum and used to inject contrast into the bile duct. The ERCP was accomplished without difficulty. The patient tolerated the procedure well. Findings: A briar wood sorter film of the abdomen was obtained. Surgical clips, consistent with previous cholecystectomy, were seen in the area of the lower third of the main bile duct. The esophagus was successfully intubated under direct vision without detailed examination of the pharynx, larynx, and associated structures, and upper GI tract. The upper GI tract was grossly normal. The major papilla was located partially within a diverticulum. A biliary sphincterotomy had been performed. The sphincterotomy appeared open. The bile duct was deeply cannulated with the short-nosed traction sphincterotome and guidewire. Contrast was injected. I personally interpreted the bile duct images. Contrast extended to the entire biliary tree. A cholecystectomy had been performed. The main bile duct was diffusely dilated. The largest diameter was 12 mm. The main bile duct contained filling defect(s) thought to be a stone and sludge. The lower third of the main bile duct was successfully dilated with an 8 mm balloon dilator held inflated for 3 minutes. To discover objects, the biliary tree was swept with a 15 mm balloon starting at the middle third of the main bile duct. Sludge was swept from the duct. Many large green pigmented stones were removed. Many stones remained on occlusion cholangram. Due to the large stones , the lower third of the main bile duct was again successfully dilated with a 10 mm balloon dilator held inflated for 3 minutes. To discover objects, the biliary tree was swept with a 15 mm balloon starting at the bifurcation. Sludge was swept from the duct. Many large green pigmented stones were removed. Many stones remained. To discover objects, the biliary tree was swept with an 2.5 cm basket starting at the bifurcation. Sludge was swept from the duct. Many stones were removed. possible debris remained in the duct in addition to a small amount of pus. Therefore, one 7 Fr by 7 cm biliary stent with a full external pigtail and a full internal pigtail was placed 7 cm into the common bile duct. Bile flowed through the stent. The stent was in good position. The total fluoroscopy exposure time was 2 minutes and 27 seconds. The endoscope was withdrawn from the patient. Impression: - The major papilla was located partially within a diverticulum. - Prior biliary endoscopic sphincterotomy appeared open. - The patient has had a cholecystectomy. - The entire main bile duct was dilated. - A filling defect consistent with a stone and sludge was seen on the cholangiogram. - The lower third of the main bile duct was successfully dilated to 10 mm. - Choledocholithiasis was found. Sweeping did not remove all the stones; a stent was inserted. Recommendation: - Return patient to [facility] for [facility] care. - Use broad spectrum antibiotics for 2 weeks. - Repeat ERCP in 4 weeks to remove stent and remove any remaining CBD stones. - Clear liquid diet today. Cornell Moore D.O. Cornell Moore DO 07/22/2017 4:50:28 PM This report has been signed electronically. Note Initiated On: 07/22/2017 3:18 PM I attest to the content of the Intraoperative Record and orders documented therein, exceptions below
--- NOTE | 2017-07-22 16:52 | [facility] Post Operative Brief Note ---
Immediate Operative Summary Operative Date Jul 22, 2017. Pre-Operative Diagnosis Recurrent Cholangitis Post-Operative Diagnosis dilation of the CBD Numerous CBD stones / sludge Cholangitis Procedure(s) Performed Endoscopic Retrograde Cholangiopancreatophy, Bile duct Dilation, stone extraction, and Biliary stent placement Surgeon Dr Igor Moore Analytical Research Chemist Surgeon(s) none Estimated Blood Loss 0 ml Findings dilation of the CBD Numerous CBD stones / sludge Cholangitis Specimens none Drains Biliary stent placed Anesthesia General Complication(s) None Disposition Recovery Room / PACU
--- NOTE | 2017-07-22 17:07 | DIAGNOSTIC IMAGING REPORT ---
Radiology ERCP BILIARY DUCTAL CLINICAL HISTORY: 86 years-old Male presenting with ERCP TO BE DONE IN THE O.R.. TECHNIQUE: 9 fluoroscopic spot image(s) obtained as part of an intraoperative procedure. COMPARISON: 01/28/2017. FINDINGS/IMPRESSION: An endoscope is positioned in the descending portion of the duodenum. A guidewire was introduced into the common bile duct, which was subsequently opacified. Cholecystectomy clips again noted with cystic duct remnant. Intrahepatic bile ducts progressively opacify and are mildly dilated. Few filling defects may be present in the common bile duct. No filling defects within the intrahepatic bile ducts evident. A common bile duct stent was placed terminating in the region of the intrahepatic ductal confluence and descending duodenum. Please see surgical report for further details. Fluoroscopy dosage (mGy): Not available. Fluoroscopy time: 2 minutes 27 seconds. Number of fluoroscopic spot images: 9. Electronically signed by: Román Elizabeth M.D. 07/22/2017 5:06 PM Dictated Date/Time: 07/22/2017 5:03 PM
--- NOTE | 2017-07-22 17:39 | Anesthesiology Progress Note ---
Anesthesia Post Op Note Date & Time Jul 22, 2017 at 17:39 Vital Signs Pain Intensity: 0 Vital Signs Past 12 Hours Date Time Temp Pulse Resp B/P (MAP) Pulse Ox O2 Delivery O2 Flow Rate FiO2 07/22/17 17:25 36.2 07/22/17 17:15 36.1 67 16 127/60 99 Nasal Cannula 2 07/22/17 17:05 69 16 111/60 98 Nasal Cannula 2 07/22/17 16:55 72 16 111/60 98 Oxymask 10 07/22/17 16:48 36.1 73 16 114/61 99 Oxymask 10 07/22/17 08:00 Room Air 07/22/17 07:58 36.7 89 16 92/55 (67) 98 Room Air Notes Mental Status: alert / awake / arousable, participated in evaluation Pt Amnestic to Procedure: Yes Nausea / Vomiting: adequately controlled Pain: adequately controlled Airway Patency, RR, SpO2: stable & adequate BP & HR: stable & adequate Hydration State: stable & adequate Anesthetic Complications: no major complications apparent
[2017-07-22 18:00] VITALS: BP 142/80; PULSE 53; O2SAT 99
[2017-07-22 18:30] VITALS: BP 145/83; PULSE 55; O2SAT 98
[2017-07-22 19:00] VITALS: BP 133/69; PULSE 52; O2SAT 97
[2017-07-22] MEDS: CEFTRIAXONE SOD INJ 1 GM in DEXTROSE 5% ADD-VANTAGE 50ML 50 ML IV SCH (21:35)
[2017-07-22] MEDS: TAMSULOSIN HCL 0.4 MG CAP PO SCH (21:38)
[2017-07-22 23:05] VITALS: BP 110/64; PULSE 50; TEMP 36.4; O2SAT 92
[2017-07-23] VITALS: O2SAT 94
[2017-07-23] MEDS: METRONIDAZOLE / NSS 500 MG in PREMIXED NSS 100 ML IV SCH ×3 (01:54→18:35)
[2017-07-23] MEDS: SODIUM CHLORIDE 0.9% 1000ML 1,000 ML IV SCH ×2 (02:15→18:45)
[2017-07-23 06:40] LABS: HEMATOCRIT 36.5 % (42-52); MEAN CELL VOLUME 92.2 fL (80-100); MEAN CORPUSCULAR HEMOGLOBIN 29.8 pg (25-34); MEAN CORPUSCULAR HGB CONC 32.3 g/dl (32-36); MEAN PLATELET VOLUME 9.8 fL (7.4-10.4); PLATELET COUNT 153 K/uL (130-400); RED BLOOD COUNT 3.96 M/uL (4.7-6.1); WHITE BLOOD COUNT 9.71 K/uL (4.8-10.8)
--- NOTE | 2017-07-23 06:43 | Progress Note ---
Progress Note Date of Service Jul 22, 2017. Progress Note Pt resting comfortably in bed Concern for ascending cholangitis Hx of recurrent colangitis and ERCP and sphincterotomies in past VSS ELev bili and LFTS Spoke with Dr Moore, tolerated ERCP, stent placed, will start on liquid diet, if improved can transition to reg diet and DC with two weeks of PO antibx
[2017-07-23 07:19] LABS: ALB/GLOB RATIO 0.7 (0.9-2); ALKALINE PHOSPHATASE 87 U/L (45-117); ALT/SGPT 138 U/L (12-78); BLOOD UREA NITROGEN 25 mg/dl (7-18); BUN/CREATININE RATIO 29.4 (10-20); CALCIUM 8.2 mg/dl (8.5-10.1); CARBON DIOXIDE 25 mmol/L (21-32); CHLORIDE 107 mmol/L (98-107); CREATININE 0.86 mg/dl (0.60-1.40); GLUCOSE 120 mg/dl (70-99); SODIUM 140 mmol/L (136-145)
[2017-07-23 07:27] VITALS: BP 97/49; PULSE 51; TEMP 36.8; O2SAT 90
[2017-07-23] MEDS: URSODIOL 300 MG CAP PO SCH ×2 (09:15→20:54)
[2017-07-23] MEDS: PANTOprazole SOD 40 MG TAB PO SCH ×2 (09:15→20:53)
--- NOTE | 2017-07-23 10:37 | Gastroenterology Progress Note ---
Progress Note Date of Service: Jul 23, 2017 Subjective Pt evaluation today including: conversation w/ patient, physical exam, chart review, lab review, review of inpatient medication list Pt afebrile overnight, LFTs w slight improvement. H/H stable. Denies any abd pain, n/v. Tolerating CL diet this AM. Review of Systems Constitutional: No fever, No chills Respiratory: No cough, No shortness of breath Cardiac: No chest pain Abdomen: No pain, No nausea, No vomiting Skin: No jaundice Medications Current Inpatient Medications Medications (Trade) Dose Ordered Sig/Alycia Route Start Time Stop Time Status Last Admin Dose Admin Acetaminophen (Tylenol Tab) 650 mg Q4H PRN PO 07/22/17 00:15 08/21/17 00:14 Al Hydrox/Mg Hydrox/Simethicone (Maalox Max Susp) 15 ml Q4H PRN PO 07/22/17 00:15 08/21/17 00:14 Magnesium Hydroxide (Milk Of Magnesia Susp) 30 ml Q6H PRN PO 07/22/17 00:15 08/21/17 00:14 Ondansetron HCl (Zofran Inj) 4 mg Q6H PRN IV 07/22/17 00:15 08/21/17 00:14 Tamsulosin HCl (Flomax Cap) 0.4 mg HS PO 07/22/17 21:00 08/21/17 20:59 07/22/17 21:38 0.4 MG Ursodiol (Actigall Cap) 300 mg BID PO 07/22/17 08:00 08/21/17 08:59 07/23/17 09:15 300 MG Pantoprazole Sodium (Protonix Tab) 40 mg BID PO 07/22/17 08:00 08/21/17 08:59 07/23/17 09:15 40 MG Sodium Chloride 1,000 ml @ 80 mls/hr [id number] IV 07/22/17 01:15 08/21/17 01:14 07/22/17 19:27 80 MLS/HR Ceftriaxone Sodium 1 gm/ Dextrose 50 ml @ 100 mls/hr Q24H IV 07/22/17 21:00 08/01/17 20:59 07/22/17 21:35 100 MLS/HR Metronidazole 500 mg/Prmx 100 ml @ 100 mls/hr Q8H IV 07/22/17 02:00 08/01/17 01:59 07/23/17 09:15 100 MLS/HR Objective Vital Signs Date Time Temp Pulse Resp B/P (MAP) Pulse Ox O2 Delivery O2 Flow Rate FiO2 07/23/17 08:00 Room Air 07/23/17 07:27 36.8 51 18 97/49 (65) 90 Room Air 07/23/17 00:00 94 Room Air 07/22/17 23:05 36.4 50 19 110/64 (79) 92 Room Air 07/22/17 19:00 52 18 133/69 (90) 97 Nasal Cannula 2.0 07/22/17 18:30 55 18 145/83 (103) 98 Nasal Cannula 2.0 07/22/17 18:00 53 18 142/80 (100) 99 Nasal Cannula 2.0 07/22/17 18:00 Nasal Cannula 2.0 07/22/17 17:40 63 16 129/67 100 Nasal Cannula 2 07/22/17 17:25 36.2 07/22/17 17:15 36.1 67 16 127/60 99 Nasal Cannula 2 07/22/17 17:05 69 16 111/60 98 Nasal Cannula 2 07/22/17 16:55 72 16 111/60 98 Oxymask 10 07/22/17 16:48 36.1 73 16 114/61 99 Oxymask 10 Physical Exam General Appearance: WD/WN, no apparent distress Eyes: normal inspection, PERRL, EOMI Neck: supple, no JVD, trachea midline Respiratory/Chest: normal breath sounds, no respiratory distress, no accessory muscle use Cardiovascular: regular rate, rhythm, no gallop, no murmur Abdomen: normal bowel sounds, non tender, soft Extremities: normal inspection, no pedal edema, no calf tenderness Neurologic/Psych: alert, normal mood/affect, oriented x 3 Skin: normal color, no jaundice, no rash Laboratory Results Last 24 Hours Test 07/23/17 06:06 07/23/17 07:31 White Blood Count 9.71 K/uL Red Blood Count 3.96 M/uL Hemoglobin 11.8 g/dL Hematocrit 36.5 % Mean Corpuscular Volume 92.2 fL Mean Corpuscular Hemoglobin 29.8 pg Mean Corpuscular Hemoglobin Concent 32.3 g/dl RDW Standard Deviation 57.3 fL RDW Coefficient of Variation 16.8 % Platelet Count 153 K/uL Mean Platelet Volume 9.8 fL Sodium Level 140 mmol/L Potassium Level mmol/L 4.0 mmol/L Chloride Level 107 mmol/L Carbon Dioxide Level 25 mmol/L Anion Gap 8.0 mmol/L Blood Urea Nitrogen 25 mg/dl Creatinine 0.86 mg/dl Est Creatinine Clear Calc Drug Dose 49.7 ml/min Estimated GFR () 89.7 Estimated GFR (Non- 77.4 BUN/Creatinine Ratio 29.4 Random Glucose 120 mg/dl Calcium Level 8.2 mg/dl Total Bilirubin 2.3 mg/dl Aspartate Amino Transf (AST/SGOT) U/L 102 U/L Alanine Aminotransferase (ALT/SGPT) 138 U/L Alkaline Phosphatase 87 U/L Total Protein 5.9 gm/dl Albumin 2.5 gm/dl Globulin 3.4 gm/dl Albumin/Globulin Ratio 0.7 Assessment and Plan Impression Patient is a 86 year old male with recurrent cholangitis, admitted with chills, emesis, and lab elevations concerning for ascending cholangitis. ERCP performed yesterday by Dr. Moore w choledocholithiasis removal and stent placements. Afebrile overnight, H/H stable, LFTs trending down. Plans - Advance diet as tolerated. - If continues to do well may DC by tomorrow on broad spectrum antibx for cholangitis coverage x 2 weeks. - Our office will contact pt for f/u stent removal. I have seen, examined, and agree with the exam as outlined by JULIET Wetzel. -Appears well after ERCP with biliary obstruction -If tolerates solid food can go home on abx orally (cipro 500 mg po bid x 14 days) and follow up for ERCP repeat in [address] Moore
[2017-07-23] MEDS ORDERED: METR-163 PO (14:30)
[2017-07-23] MEDS ORDERED: CPR500 PO (14:30)
[2017-07-23 15:24] VITALS: BP 98/55; PULSE 60; TEMP 36.3; O2SAT 95
[2017-07-23 17:10] VITALS: BP 104/63; PULSE 51
[2017-07-23 20:00] VITALS: O2SAT 94
--- NOTE | 2017-07-23 20:52 | Progress Note ---
Subjective Date of Service: Jul 23, 2017. Subjective Pt evaluation today including: conversation w/ patient, conversation w/ family (daughter, son-in-law), physical exam, chart review, lab review, review of studies (ERCP), conversation w/ product development consultant (GI ), review of inpatient medication list Pain: no abd pain PO Intake: tolerating full liquids Voiding: no voiding problems no nausea, emesis, diarrhea; did have very small BM this am has not walked the hallways today no dyspnea Problem List Medical Problems: (1) Bilirubinemia Status: Acute (2) Cholangitis Status: Acute (3) Cholangitis Status: Acute (4) Cholangitis Status: Acute (5) History of cholangitis Status: Acute (6) Nausea, vomiting, and diarrhea Status: Acute (7) Transaminitis Status: Acute (8) Vomiting Status: Acute Social History Problems: (1) Hx of cholecystectomy Status: Acute Review of Systems Constitutional: No fever, No chills Respiratory: No shortness of breath Cardiac: No chest pain Abdomen: No pain Objective Vital Signs Date Time Temp Pulse Resp B/P (MAP) Pulse Ox O2 Delivery O2 Flow Rate FiO2 07/23/17 08:00 Room Air 07/23/17 07:27 36.8 51 18 97/49 (65) 90 Room Air 07/23/17 00:00 94 Room Air 07/22/17 23:05 36.4 50 19 110/64 (79) 92 Room Air 07/22/17 19:00 52 18 133/69 (90) 97 Nasal Cannula 2.0 07/22/17 18:30 55 18 145/83 (103) 98 Nasal Cannula 2.0 07/22/17 18:00 53 18 142/80 (100) 99 Nasal Cannula 2.0 07/22/17 18:00 Nasal Cannula 2.0 07/22/17 17:40 63 16 129/67 100 Nasal Cannula 2 07/22/17 17:25 36.2 07/22/17 17:15 36.1 67 16 127/60 99 Nasal Cannula 2 07/22/17 17:05 69 16 111/60 98 Nasal Cannula 2 07/22/17 16:55 72 16 111/60 98 Oxymask 10 07/22/17 16:48 36.1 73 16 114/61 99 Oxymask 10 Physical Exam General Appearance: no apparent distress Eyes: sclerae normal (no icterus) ENT: pharynx normal Neck: no JVD Respiratory/Chest: lungs clear, no respiratory distress, no accessory muscle use Cardiovascular: regular rate, rhythm, no gallop, no murmur Abdomen: normal bowel sounds, non tender, soft, no organomegaly Extremities: no pedal edema Neurologic/Psychiatric: alert, oriented x 3 Laboratory Results Last 24 Hours Test 07/23/17 06:06 07/23/17 07:31 White Blood Count 9.71 K/uL Red Blood Count 3.96 M/uL Hemoglobin 11.8 g/dL Hematocrit 36.5 % Mean Corpuscular Volume 92.2 fL Mean Corpuscular Hemoglobin 29.8 pg Mean Corpuscular Hemoglobin Concent 32.3 g/dl RDW Standard Deviation 57.3 fL RDW Coefficient of Variation 16.8 % Platelet Count 153 K/uL Mean Platelet Volume 9.8 fL Sodium Level 140 mmol/L Potassium Level mmol/L 4.0 mmol/L Chloride Level 107 mmol/L Carbon Dioxide Level 25 mmol/L Anion Gap 8.0 mmol/L Blood Urea Nitrogen 25 mg/dl Creatinine 0.86 mg/dl Est Creatinine Clear Calc Drug Dose 49.7 ml/min Estimated GFR () 89.7 Estimated GFR (Non- 77.4 BUN/Creatinine Ratio 29.4 Random Glucose 120 mg/dl Calcium Level 8.2 mg/dl Total Bilirubin 2.3 mg/dl Aspartate Amino Transf (AST/SGOT) U/L 102 U/L Alanine Aminotransferase (ALT/SGPT) 138 U/L Alkaline Phosphatase 87 U/L Total Protein 5.9 gm/dl Albumin 2.5 gm/dl Globulin 3.4 gm/dl Albumin/Globulin Ratio 0.7 Assessment and Plan 86yo male - 1. sepsis 2nd to cholangitis - improved, but BPs low-normal today. Continues on IV rocephin/flagyl. Will d/c home on cipro/flagyl. Spoke with patient twice today - encouraged him to stay overnight due to the low BP, continue IVF, and advancement of diet. 2. cholangitis - s/p ERCP with CBD stent and sweeping of duct with stone extraction. Clinically improved - see discussion above. Cont IV abx. LFTs improving. 3. abnormal LFTs - 2nd to #2 - improved; repeat in am. No signs of post-ERCP acute pancreatitis. 4. h/o scleroderma & CREST syndrome - noted. 5. BPH - cont flomax. 6. acute kidney injury - 2nd to sepsis from cholangitis - resolved. 7. prerenal azotemia - dehydration 2nd to sepsis - continue IVF with normal saline; BMP in am. 8. GI proph - PPI twice daily. son-in-law and daughter updated twice today. hopefully d/c in am. Continued [facility] stay due to: multiple IV medications needed Discharge planning: home
[2017-07-23] MEDS: TAMSULOSIN HCL 0.4 MG CAP PO SCH (20:54)
[2017-07-23] MEDS: CEFTRIAXONE SOD INJ 1 GM in DEXTROSE 5% ADD-VANTAGE 50ML 50 ML IV SCH (20:54)
[2017-07-23 23:46] VITALS: BP 104/54; PULSE 55; TEMP 36.5; O2SAT 90
[2017-07-24] VITALS: O2SAT 94
[2017-07-24] MEDS: METRONIDAZOLE / NSS 500 MG in PREMIXED NSS 100 ML IV SCH (01:51)
[2017-07-24] MEDS: SODIUM CHLORIDE 0.9% 1000ML 1,000 ML IV SCH (05:45)
[2017-07-24 08:05] VITALS: BP 113/68; PULSE 62; TEMP 36.5; O2SAT 91
[2017-07-24] MEDS ORDERED: BISACODYL 10 MG SUPP PR STA (08:26)
--- NOTE | 2017-07-24 08:37 | Discharge Instructions ---
Discharge Instructions Date of Service Jul 24, 2017. Admission Reason for Admission: Elevated Liver Enzymes, Nausea And Vomiting Discharge Discharge Diagnosis / Problem: common bile duct stones with resulting cholangitis Discharge Goals Goal(s): Learn about illness, Diagnostic testing, Therapeutic intervention Activity Recommendations Activity Limitations: resume your previous activity . Instructions / Follow-Up Instructions / Follow-Up From Dr. Walters - 1. You had evidence of cholangitis which is infection in the bile ducts due to blockage of bile flow. The bile flow was blocked due to multiple gallstones in the bile duct. You underwent successful ERCP by Dr. Moore with removal of multiple stones and placement of a stent in the bile duct. Your liver function tests were elevated due to the blockage, but these continue to improve due to the successful placement of the stent. Please take the following for 14 days starting TODAY, 07/24/17 - * cipro 500mg twice daily * flagyl (metronidazole) 500mg three times a day * do not drink alcohol with the metronidazole as it can cause a bad reaction Both antibiotics were called to [facility] on [facility][Note 3]. You will need a repeat ERCP by Dr. Moore in 1 month. Please be sure to contact his office this week to arrange this. 2. Low blood pressure - this is resolved. This was due to the cholangitis as well as limited oral intake for the first part of your stay. 3. Chronic cough - during this admission your chest x-ray showed findings concerning for possible chronic lung disease. The exact cause is not known. Please speak with Dr. Mirnada about obtaining a referral to a lung specialist to look into this further. 4. Constipation - you can take a combination of [id number] miralax with senna or dulcolax, as desired, to maintain soft bowel movements. Each of these constipation aids can be purchased [id number]. 5. Plenty of fluids over the next few days as you recover from this illness. 6. Diet - please adhere to a LOW FAT diet. Avoid foods high in fat including fried foods, fast foods, junk foods (chips, cookies, ice cream, etc), etc. 7. Follow-up - * see Dr. Miranda Wednesday or Wednesday of THIS WEEK * see Dr. Moore at [facility] or one of his associates within the next 2 weeks 8. Return to [facility] if - * you experience recurrent abdominal pain, vomiting, severe nausea * you develop fever over 100.5 degrees * you develop severe diarrhea or severe constipation/inability to move the bowels * you have difficulty keeping food or liquids down Current Hospital Diet Patient's current hospital diet: Low Fat Diet Discharge Diet Recommended Diet: Low Fat Diet Procedures Procedures Performed: Endoscopic Retrograde Cholangiopancreatophy ("ERCP"), Bile duct Dilation, gallstone extraction, and Biliary stent placement Pending Studies Studies pending at discharge: no Medical Emergencies . Who to Call and When: Medical Emergencies: If at any time you feel your situation is an emergency, please call 911 immediately. . Non-Emergent Contact Non-Emergency issues call your: Lockstitch Shoulder Joiner Call Non-Emergent contact if: temperature is above 100.5, your pain is not controlled, your pain is worsening, your pain is unusual for you, your pain is concerning you, you have any medication questions . . "Provider Documentation" section prepared by Akin Walters. . VTE Core Measure Inpt VTE Proph given/why not?: SCD's
[2017-07-24 08:39] LABS: ALB/GLOB RATIO 0.8 (0.9-2); BUN/CREATININE RATIO 18.2 (10-20); CALCIUM 8.2 mg/dl (8.5-10.1); CREATININE 0.87 mg/dl (0.60-1.40); POTASSIUM 3.4 mmol/L (3.5-5.1)
[2017-07-24] MEDS: URSODIOL 300 MG CAP PO SCH (08:43)
[2017-07-24] MEDS: PANTOprazole SOD 40 MG TAB PO SCH (08:43)
[2017-07-24] MEDS ORDERED: POTASSIUM CHLORIDE 10 MEQ TABCR PO STA (09:27)
[2017-07-24 11:13] VITALS: BP 113/68; PULSE 62; TEMP 36.5; O2SAT 91
--- NOTE | 2017-07-25 00:43 | Discharge Summary ---
Discharge Summary Date of Service Jul 25, 2017. Discharge Summary Admission Date: Jul 22, 2017 at 00:10 Discharge Date: Jul 24, 2017 Discharge Disposition: Home Principal Diagnosis: sepsis 2nd to cholangitis - s/p ERCP & CBD stent placement Problems/Secondary Diagnoses: 1. recurrent cholangitis s/p multiple ERCPs 2. abnormal LFTs 2nd to cholangitis - improving 3. CKD stage 2 4. chronic cough 5. pulmonary HTN 6. pulmonary fibrosis 7. CREST syndrome / scleroderma 8. GERD 9. BPH 10. acute kidney injury 2nd to sepsis - resolved Immunizations: Have You Had Influenza Vaccine: N/A History of Tetanus Vaccine?: Yes Tetanus Immunization Date: May 05, 2013 History of Pneumococcal: Yes Pneumococcal Date: Sep 04, 2012 History of Hepatitis B Vaccine: No Procedures: ERCP - Cornell Moore DO - The major papilla was located partially within a diverticulum. - Prior biliary endoscopic sphincterotomy appeared open. - The patient has had a cholecystectomy. - The entire main bile duct was dilated. - A filling defect consistent with a stone and sludge was seen on the cholangiogram. - The lower third of the main bile duct was successfully dilated to 10 mm. - Choledocholithiasis was found. Sweeping did not remove all the stones; a stent was inserted. Consultations: gastroenterology - Cornell Moore DO / Pablo Lee MD Medication Reconciliation New Medications: Metronidazole (Flagyl) 500 Mg Tab 500 MG PO TID for 14 Days, #42 TAB 0 Refills Changed Medications: Ciprofloxacin (Ciprofloxacin HCl) 500 Mg Tab 500 MG PO BID for 14 Days, #28 TAB 0 Refills (Changed from: 250 MG; UD; Removed Reason; Refills: ; Removed Instructions) Continued Medications: Enteral Nutrition Formula (Ensure Plus Vanilla) 1 Can Liqd 1 CAN PO DAILY, CAN Folic Acid (Folvite) 1 Mg Tab 1 MG PO QAM, TAB Multivitamin (Multivitamin) Tab 1 TAB PO QAM, TAB Omeprazole (Omeprazole) 20 Mg Tab 20 MG PO BID Tamsulosin Hcl (Flomax) 0.4 Mg Cap 0.4 MG PO HS, CAP Ursodiol (Actigall) 300 Mg Cap 300 MG PO BID, CAP Zoledronic Acid (Reclast) Unknown Strength Inj 1 DOSE YEARLY Referrals At Discharge Follow up Referrals: Databases Computer Consultant Referral - Within 1-2 Weeks with Moore, Marten B., DO Physician Referral - Within 1 Week with Román Miranda M.D. Discharge Exam Physical Exam: General Appearance: no apparent distress ENT: pharynx normal, + pertinent finding (hearing impairment) Neck: + JVD (mild) Respiratory/Chest: no respiratory distress, no accessory muscle use, + rales (fine, bibasilar) Cardiovascular: regular rate, rhythm, no gallop, normal peripheral pulses, + systolic murmur (2/6 CELINE LSB) Abdomen / GI: normal bowel sounds, non tender, soft, no organomegaly Extremities: no pedal edema Neurologic/Psychiatric: alert, oriented x 3 Hospital Course HISTORY OF PRESENT ILLNESS: 86-year-old male with a past medical history of scleroderma, CREST syndrome, status post cholecystectomy in 2012, recurrent cholangitis with multiple ERCPs with sphincterotomies, and recurrent choledocholithiasis who presented to the ER with complaints of nausea, vomiting, and rigors. Denied any abdominal pain. Most recent admission was in January 2017 with similar complaints and had an ERCP performed during that hospital stay. He denied any fevers, chest pain, shortness of breath, or diarrhea. HOSPITAL COURSE: The patient was treated for presumed sepsis 2nd to cholangitis with IVF and broad-spectrum antibiotics. [facility] who recommended repeat ERCP. This was performed by Dr. Cornell Moore which demonstrated evidence of choledocholithiasis and cholangitis. The CBD was swept and several stones were extracted. A CBD stent was placed. Unfortunately not all CBD stones could be removed. Post-ERCP the patient clinically improved. His LFTs also continued to improve for the remainder of his stay. He never had evidence of post-ERCP acute pancreatitis. He had transient low- normal blood pressure following his procedure which resolved with IV hydration. Following the ERCP he was restarted on a clear liquid diet and this was slowly advanced over the course of the next 48 hours. He tolerated such without any GI intolerance. Other issues addressed while here included mild acute kidney injury 2nd to the sepsis as well as constipation. Creatinine at discharge was 0.8. At discharge he will complete a 2-week course each of cipro and flagyl. A repeat ERCP was recommended by Dr. Moore in 1 month. Total Time Spent: Greater than 30 minutes This includes examination of the patient, discharge planning, medication reconciliation, and communication with other providers. Discharge Instructions Please refer to the electronic Patient Visit Report (Discharge Instructions) for additional information. Follow-Up 1. see Dr. Miranda, PCP, within 5 days 2. see Benito Mccoy , within 2-3 weeks Additional Copies To Cornell Moore, DO; Román Miranda M.D.
--- NOTE | 2017-07-28 08:09 | EDITING REQUIRED CODING QUERY ---
PRESENT ON ADMISSION QUERY To promote full compliance with coding requirements relating to pateint care, physician participation is requested in all cases of probation and parole officer uncertainty. Please assist us with the question(s) below: Please place an X within the parenthesis (x). The following diagnosis(es) listed in this patient's medical record require physician assistance to determine if they were present on admission (POA) or not. Please advise for each diagnosis whether it was present on admission, not present on admission, or if it was clinically undetermined. 1. Sepsis due to cholangitis documented in progress notes and discharge summary but absent on H&P (x ) Present On Admission ( ) Not Present On Admission ( ) Clinically Undetermined 2. Acute kidney injury due to cholangitis documented in progress notes and discharge summary but absent on H&P (x ) Present On Admission ( ) Not Present On Admission ( ) Clinically Undetermined Thank you Mariela Whitley *Definition of the present on admission (POA)-Present on admission is defined as present at the time the order for inpatient admission occurs. Conditions that develop during an outpatient encounter prior to a written order for inpatient admission (including emergency department, observation, or outpatient surgery) are considered present on admission.
[2017-09-02] MEDS ORDERED: ACET-1311 PO (07:56)
== END 2017-07-24 12:52 | disposition home or self-care (01) | DRG 872 ==
LOC: C.EDB 18:45 → C.MS4W 07-22 00:10 → ENRESERV 07-22 00:43 → C.MS4W 07-22 09:51
PROVIDERS: ADMIT Family Medicine; ATTEND Internal Medicine
PROC: BF10YZZ Fluoroscopy of Bile Ducts using Other Contrast (ICD-10-PCS; principal; 2017-07-22 13:45)
PROC: 0FC98ZZ Extirpation of Matter from Common Bile Duct, Via Natural or Artificial Opening Endoscopic (ICD-10-PCS; principal; 2017-07-22 13:45)
PROC: 0F798DZ Dilation of Common Bile Duct with Intraluminal Device, Via Natural or Artificial Opening Endoscopic (ICD-10-PCS; principal; 2017-07-22 13:45)
DX: A41.9 Sepsis, unspecified organism (principal); K80.30 Calculus of bile duct with cholangitis, unspecified, without obstruction; N17.9 Acute kidney failure, unspecified; M34.1 CR(E)ST syndrome; N40.0 Benign prostatic hyperplasia without lower urinary tract symptoms; K21.9 Gastro-esophageal reflux disease without esophagitis; K59.00 Constipation, unspecified; Z66 Do not resuscitate; Z87.19 Personal history of other diseases of the digestive system; Z90.49 Acquired absence of other specified parts of digestive tract; Z79.83 Long term (current) use of bisphosphonates; Z79.899 Other long term (current) drug therapy; Z83.3 Family history of diabetes mellitus; Z82.3 Family history of stroke

== ENCOUNTER → 2017-08-02 | Outpatient (CLI) | payer OTHER ==
[~2017-08-02] MED LIST changes: +ACET-1311 PO; +ASPEC81 PO; -CALC600T9 PO; -FIBER PO; +METR-163 PO; +ULT50X PO
--- NOTE | 2017-08-02 15:20 | DIAGNOSTIC IMAGING REPORT ---
RIGHT VENOUS DOPP LOWER EXT UNILAT CLINICAL HISTORY: RT LEG PAIN/SWELLING, R/O DVT Right pain. Edema. TECHNIQUE: Ultrasound COMPARISON STUDY: None FINDINGS: Normal study IMPRESSION: Normal study The above report was generated using voice recognition software. It may contain grammatical, syntax or spelling errors. Electronically signed by: Tha Kelsey M.D. 08/02/2017 3:19 PM Dictated Date/Time: 08/02/2017 3:06 PM
== END | disposition home or self-care (01) ==
LOC: C.ULTRBC 14:33
PROVIDERS: ATTEND Physician Assistant
DX: M79.89 Other specified soft tissue disorders (principal); M79.604 Pain in right leg

== ENCOUNTER 2017-08-20 11:07 | Inpatient (IN) | payer OTHER ==
[~2017-08-20] VITALS: Ht 167.6 cm; Wt 64.0 kg
[~2017-08-20 11:07] MED LIST changes: -ACET-1311 PO; -ASPEC81 PO; -ULT50X PO
[2017-08-20 11:47] LABS: BASO % 0.5 %; BASO ABS # 0.03 K/uL (0-0.2); COMPLETE YES; EOS % 2.3 %; HEMATOCRIT 39.8 % (42-52); IG% 0.2 %; LYMPH % 17.3 %; LYMPH ABS # 1.05 K/uL (1.2-3.4); MEAN CELL VOLUME 89.6 fL (80-100); MEAN CORPUSCULAR HEMOGLOBIN 30.2 pg (25-34); MEAN CORPUSCULAR HGB CONC 33.7 g/dl (32-36); MEAN PLATELET VOLUME 9.7 fL (7.4-10.4); MONO % 14.3 %; NEUT % 65.4 %; PLATELET COUNT 223 K/uL (130-400); RED BLOOD COUNT 4.44 M/uL (4.7-6.1); WHITE BLOOD COUNT 6.07 K/uL (4.8-10.8)
[2017-08-20 11:56] LABS: BUN/CREATININE RATIO 17.1 (10-20); CREATININE 0.98 mg/dl (0.60-1.40); POTASSIUM 4.2 mmol/L (3.5-5.1)
--- NOTE | 2017-08-20 12:07 | DIAGNOSTIC IMAGING REPORT ---
R PELVIS/UNILATERAL HIP 1 VIEW CLINICAL HISTORY: FALL. Right hip pain. COMPARISON STUDY: None. FINDINGS: Comminuted and mildly displaced intertrochanteric fracture within the right hip. This demonstrates mild superior displacement. The femoral head remains within the acetabulum. No fractures within the visual pelvic bones or left hip. IMPRESSION: Comminuted and mildly displaced intertrochanteric fracture within the right hip. Electronically signed by: Saurabh Bains M.D. 08/20/2017 12:06 PM Dictated Date/Time: 08/20/2017 12:05 PM
--- NOTE | 2017-08-20 12:09 | DIAGNOSTIC IMAGING REPORT ---
CHEST ONE VIEW PORTABLE CLINICAL HISTORY: Trauma. Right hip pain. HIP FRACTURE COMPARISON STUDY: 07/21/2017 FINDINGS: The examination was performed in a portable supine fashion. The heart is at the upper limits of normal in size. There is aortic tortuosity. There is elevation the right hemidiaphragm. There are persistent interstitial pulmonary fibrotic changes. There is no acute parenchymal consolidation.[ IMPRESSION: Chronic interstitial lung disease similar to the prior study. No acute findings Electronically signed by: Charly Duran M.D. 08/20/2017 12:07 PM Dictated Date/Time: 08/20/2017 12:06 PM
--- NOTE | 2017-08-20 12:52 | EMERGENCY ROOM VISIT NOTE ---
History Report prepared by Wale: Axel Espino Under the Supervision of: Dr. Sven Ward D.O. First contact with patient: 12:14 Chief Complaint: FALL Stated Complaint: FALL/HIP PAIN History of Present Illness The patient is a 86 year old male who presents to the Emergency Room with complaints of a sudden fall occurring prior to arrival. The patient states that he was bending over to put bottle on a shelf, and he lost his balance and fell over. The patient is additionally complaining of right hip pain. The patient broke his foot two years ago and saw an orthopedic surgeon. He states that he also hit is head while falling down. Source of History: patient Onset: prior to arrival Position: other (global) Quality: other (fall) Timing: other (sudden) Note: Associated symptoms: Right hip pain Review of Systems See HPI for pertinent positives & negatives. A total of 10 systems reviewed and were otherwise negative. Past Medical & Surgical Medical Problems: (1) Abdominal discomfort (2) Acid reflux (3) Anemia (4) bactremia with G neg , source is likely biliary track infection, (5) CREST syndrome (6) Elevated liver enzymes (7) Nausea & vomiting (8) Nausea and vomiting (9) Pancreatitis (10) Pancreatitis (11) Repair of inguinal hernia (12) RUQ abdominal pain Surgical Problems: (1) History of appendectomy (2) History of cholecystectomy (3) History of knee replacement Family History Diabetes mellitus Stroke Social History Smoking Status: Never Smoker Alcohol Use: none Drug Use: none Marital Status: Housing Status: lives with family Occupation Status: retired Current/Historical Medications Scheduled Enteral Nutrition Formula (Ensure Plus Vanilla), 1 CAN PO DAILY Folic Acid (Folvite), 1 MG PO QAM Multivitamin (Multivitamin), 1 TAB PO QAM Omeprazole (Omeprazole), 20 MG PO BID Tamsulosin Hcl (Flomax), 0.4 MG PO HS Ursodiol (Actigall), 300 MG PO BID Zoledronic Acid (Reclast), 1 DOSE YEARLY Allergies Coded Allergies: No Known Allergies (Unverified , 07/22/17) Physical Exam Vital Signs Date Time Temp Pulse Resp B/P (MAP) Pulse Ox O2 Delivery O2 Flow Rate FiO2 08/20/17 13:58 95 Room Air 08/20/17 13:34 79 08/20/17 13:31 143/91 151/88 08/20/17 13:07 75 18 95 08/20/17 13:01 128/82 08/20/17 12:37 77 26 08/20/17 12:32 143/96 08/20/17 12:07 74 18 158/89 96 Room Air 08/20/17 12:07 77 22 08/20/17 12:01 158/89 08/20/17 11:58 156/87 08/20/17 11:37 74 21 92 08/20/17 11:19 150/85 08/20/17 11:18 82 08/20/17 11:14 36.3 75 150/85 96 Room Air Physical Exam CONSTITUTIONAL/VITAL SIGNS: Reviewed / noted above. GENERAL: Non-toxic in appearance. INTEGUMENTARY: Warm, dry, and [place]. HEAD: Normocephalic. EYES: without scleral icterus or trauma. ENT/OROPHARYNX: clear and moist. LYMPHADENOPATHY/NECK: Is supple without lymphadenopathy or meningismus. RESPIRATORY: Lungs clear and equal. CARDIOVASCULAR: Regular rate and rhythm. GI/ABDOMEN: Soft and nontender. No organomegaly or pulsatile mass. No rebound or guarding. Normal bowel sounds. EXTREMITIES: Tenderness to palpation of the right hip. Shortening and external rotation of the right leg. BACK: No CVA tenderness. NEUROLOGICAL: Intact without focal deficits. PSYCHIATRIC: normal affect. MUSCULOSKELETAL: Normally developed with good muscle tone. Medical Decision & Procedures ER Provider Diagnostic Interpretation: Radiology results as stated below per my review and radiologist interpretation: R PELVIS/UNILATERAL HIP 1 VIEW CLINICAL HISTORY: FALL. Right hip pain. COMPARISON STUDY: None. FINDINGS: Comminuted and mildly displaced intertrochanteric fracture within the right hip. This demonstrates mild superior displacement. The femoral head remains within the acetabulum. No fractures within the visual pelvic bones or left hip. IMPRESSION: Comminuted and mildly displaced intertrochanteric fracture within the right hip. Electronically signed by: Saurabh Bains M.D. 08/20/2017 12:06 PM Dictated Date/Time: 08/20/2017 12:05 PM CHEST ONE VIEW PORTABLE CLINICAL HISTORY: Trauma. Right hip pain. HIP FRACTURE COMPARISON STUDY: 07/21/2017 FINDINGS: The examination was performed in a portable supine fashion. The heart is at the upper limits of normal in size. There is aortic tortuosity. There is elevation the right hemidiaphragm. There are persistent interstitial pulmonary fibrotic changes. There is no acute parenchymal consolidation.[ IMPRESSION: Chronic interstitial lung disease similar to the prior study. No acute findings Electronically signed by: Charly Duran M.D. 08/20/2017 12:07 PM Dictated Date/Time: 08/20/2017 12:06 PM Laboratory Results 08/20/17 11:18 Red Blood Count 4.44, Mean Corpuscular Volume 89.6, Mean Corpuscular Hemoglobin 30.2, Mean Corpuscular Hemoglobin Concent 33.7, Mean Platelet Volume 9.7, Neutrophils (%) (Auto) 65.4, Lymphocytes (%) (Auto) 17.3, Monocytes (%) (Auto) 14.3, Eosinophils (%) (Auto) 2.3, Basophils (%) (Auto) 0.5, Neutrophils # (Auto ) 3.97, Lymphocytes # (Auto) 1.05, Monocytes # (Auto) 0.87, Eosinophils # (Auto ) 0.14, Basophils # (Auto) 0.03 08/20/17 11:18 Test 08/20/17 11:18 08/20/17 14:05 White Blood Count 6.07 K/uL (4.8-10.8) Red Blood Count 4.44 M/uL (4.7-6.1) Hemoglobin 13.4 g/dL (14.0-18.0) Hematocrit 39.8 % (42-52) Mean Corpuscular Volume 89.6 fL (80-100) Mean Corpuscular Hemoglobin 30.2 pg (25-34) Mean Corpuscular Hemoglobin Concent 33.7 g/dl (32-36) Platelet Count 223 K/uL (130-400) Mean Platelet Volume 9.7 fL (7.4-10.4) Neutrophils (%) (Auto) 65.4 % Lymphocytes (%) (Auto) 17.3 % Monocytes (%) (Auto) 14.3 % Eosinophils (%) (Auto) 2.3 % Basophils (%) (Auto) 0.5 % Neutrophils # (Auto) 3.97 K/uL (1.4-6.5) Lymphocytes # (Auto) 1.05 K/uL (1.2-3.4) Monocytes # (Auto) 0.87 K/uL (0.11-0.59) Eosinophils # (Auto) 0.14 K/uL (0-0.5) Basophils # (Auto) 0.03 K/uL (0-0.2) RDW Standard Deviation 52.4 fL (36.4-46.3) RDW Coefficient of Variation 15.9 % (11.5-14.5) Immature Granulocyte % (Auto) 0.2 % Immature Granulocyte # (Auto) 0.01 K/uL (0.00-0.02) Anion Gap 8.0 mmol/L (3-11) Est Creatinine Clear Calc Drug Dose 47.0 ml/min Estimated GFR () 79.5 Estimated GFR (Non- 68.6 BUN/Creatinine Ratio 17.1 (10-20) Calcium Level 9.0 mg/dl (8.5-10.1) Total Bilirubin 0.8 mg/dl (0.2-1) Aspartate Amino Transf (AST/SGOT) 28 U/L (15-37) Alanine Aminotransferase (ALT/SGPT) 18 U/L (12-78) Alkaline Phosphatase 55 U/L (45-117) Total Protein 7.3 gm/dl (6.4-8.2) Albumin 3.7 gm/dl (3.4-5.0) Globulin 3.6 gm/dl (2.5-4.0) Albumin/Globulin Ratio 1.0 (0.9-2) Laboratory results as stated above per my review. ECG Indication: other Rate (beats per minute): 74 Rhythm: normal sinus Findings: no ectopy, other (No acute injury) ED Course 1220: Previous medical records were reviewed. The patient was evaluated in room A11. A complete history and physical examination was performed. I discussed his treatment plan with the patient, and he was agreeable. 1226: Discussed the patient's case with Dr. Del Angel. The patient will be evaluated for further treatment and disposition. Medical Decision Differential includes close head injury, intracranial bleed, facial trauma, cervical spine trauma, chest and thoracic trauma, abdominal and intra-abdominal trauma, spine neurologic trauma, extremity trauma. This is an 86-year-old male who presents to the ED with a chief complaint of a fall. It was a ground-level fall. Details listed above. The patient has right hip pain with a intertrochanteric right hip fracture confirmed on x-ray. He has a small abrasion to the right supraorbital region. This is not needed repair. The patient's exam is suggestive of a right hip fracture. Blood work and x-ray had been done. These are unremarkable. The patient was seen by the hospitalist service and then orthopedics for inpatient evaluation and care. Medication Reconcilliation Current Medication List: was personally reviewed by me Blood Pressure Screening Patient's blood pressure: Elevated blood pressure Blood pressure disposition: Elevated BP felt to be situational Consults Time Called: 1225 Consulting Physician: Dr. Del Angel Returned Call: 1226 Discussed the patient's case with Dr. Del Angel. The patient will be evaluated for further treatment and disposition. Impression Primary Impression: Fall Additional Impression: Intertrochanteric fracture of right hip Scribe Attestation The scribe's documentation has been prepared under my direction and personally reviewed by me in its entirety. I confirm that the note above accurately reflects all work, treatment, procedures, and medical decision making performed by me. Departure Information Dispostion Being Evaluated By Hospitalist Referrals Román Miranda M.D. (PCP) Patient Instructions My [facility] Problem Qualifiers
[2017-08-20 13:58] VITALS: O2SAT 95; Ht 167.6 cm; Wt 64.0 kg
[2017-08-20] MEDS ORDERED: ALUMINUM/MAGNESIUM/SIMETH (MAALOX MAX) 30 ML UDC PO PRN (14:00)
[2017-08-20] MEDS ORDERED: ONDANSETRON INJ 2 MG/ML 2 ML VIAL IV PRN (14:00)
[2017-08-20] MEDS ORDERED: POLYETHYLENE (MIRALAX) 17 GM PACK PO PRN (14:00)
[2017-08-20] MEDS ORDERED: NALOXONE HCL 0.4 MG/1 ML VIAL/CARP IV PRN (14:00)
[2017-08-20] MEDS ORDERED: MAGNESIUM HYDROXIDE SUSP 30 ML UDC PO PRN ×2 (14:00)
[2017-08-20] MEDS ORDERED: SOD PHOSPHATE/SOD BIPHOSPHATE ENEMA 132 ML BTL PR PRN (14:00)
[2017-08-20] MEDS ORDERED: BISACODYL 10 MG SUPP PR PRN (14:00)
[2017-08-20] MEDS ORDERED: ACETAMINOPHEN 325 MG TAB PO PRN (14:00)
[2017-08-20] MEDS ORDERED: TRAMADOL HCL 50 MG TAB PO PRN (14:15)
[2017-08-20] MEDS ORDERED: MoRPHine SULFATE 2 MG/ML CARP IV PRN (14:15)
[2017-08-20] MEDS ORDERED: HydrALAZINE HCL 20 MG/ML VIAL IV. PRN (14:15)
--- NOTE | 2017-08-20 14:17 | History and Physical ---
History & Physical Date & Time of Service: Aug 20, 2017 at 14:10 Chief Complaint: Fall/Hip Pain Primary Care Physician: Román Miranda M.D. History of Present Illness Source: patient Mr. 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 Patient resides at [facility]. He reports he was bending over to place bottles of water on a shelf when he lost his balance and fell. He hit is head and arm on the door. He can recall the whole occurrence and denies lightheadedness/dizziness prior to the fall or LOC. He says he yelled for help and it took approx. 20 minutes for someone to get to him. He reports an achy pain in the R hip but denies all other injury. He reports pain is minimal at rest and worsens with movement. He normally ambulates with a walker. He was recently hospitalized for an episode of cholangitis in beginning of July and completed a course of antibiotics. He denies fever/chills, lightheadedness/dizziness, CP, SOB, N/V, abdominal pain, dysuria, constipation/diarrhea, or melena/hematochezia Patient is afebrile and without leukocytosis. CXR with chronic fibrotic changes and no acute findings. Hip/Pelvic XR with a comminuted mildly displaced R intertrochanteric fx. Past Medical/Surgical History 1. Interstitial Fibrosis 2. Pulmonary HTN 3. CREST variant Scleroderma 4. CKD Stage III 5. GABE 6. BPH 7. Recurrent Cholangitis 8. Biliary Stenosis S/P Stent Family History Alzheimers Disease Anemia Breast Cancer Coronry Heart Disease Diabetes mellitus Stroke Social History Smoking Status: Never Smoker Smokeless Tobacco Use: No Alcohol Use: none Drug Use: none Marital Status: Housing status: snf ([facility]) Occupational Status: retired Immunizations History of Influenza Vaccine: N/A History of Tetanus Vaccine?: Yes Tetanus Immunization Date: May 05, 2013 History of Pneumococcal: Yes Pneumococcal Date: Sep 04, 2012 History of Hepatitis B Vaccine: No Allergies Coded Allergies: No Known Allergies (Unverified , 07/22/17) Home Medications Scheduled Enteral Nutrition Formula (Ensure Plus Vanilla), 1 CAN PO DAILY Folic Acid (Folvite), 1 MG PO QAM Multivitamin (Multivitamin), 1 TAB PO QAM Omeprazole (Omeprazole), 20 MG PO BID Tamsulosin Hcl (Flomax), 0.4 MG PO HS Ursodiol (Actigall), 300 MG PO BID Zoledronic Acid (Reclast), 1 DOSE YEARLY Review of Systems Constitutional: No fever, No chills, No weakness Eyes: No worsening of vision, No diplopia ENT: No nasal symptoms, No sore throat, No trouble swallowing Respiratory: No cough, No wheezing, No dyspnea on exertion, No dyspnea at rest Cardiovascular: No chest pain, No palpitations Abdomen: No pain, No nausea, No vomiting, No diarrhea, No constipation, No GI bleeding Musculoskeletal: + joint pain (R hip), No calf pain Genitourinary - Male: No dysuria Neurologic: No numbness/tingling, No vertigo Hematologic / Lymphatic: No abnormal bleeding/bruising, No clotting problems Integumentary: No rash Physical Exam Vital Signs Date Time Temp Pulse Resp B/P (MAP) Pulse Ox O2 Delivery O2 Flow Rate FiO2 08/20/17 13:58 95 Room Air 08/20/17 13:34 79 08/20/17 13:31 143/91 151/88 08/20/17 13:07 75 18 95 08/20/17 13:01 128/82 08/20/17 12:37 77 26 08/20/17 12:32 143/96 08/20/17 12:07 74 18 158/89 96 Room Air 08/20/17 12:07 77 22 08/20/17 12:01 158/89 08/20/17 11:58 156/87 08/20/17 11:37 74 21 92 08/20/17 11:19 150/85 08/20/17 11:18 82 08/20/17 11:14 36.3 75 150/85 96 Room Air General Appearance: WD/WN, no apparent distress Head: normocephalic, atraumatic Eyes: sclerae normal ENT: hearing grossly normal Neck: supple, no JVD, trachea midline Respiratory/Chest: lungs clear, normal breath sounds, no respiratory distress, no accessory muscle use Cardiovascular: regular rate, rhythm, no gallop, no murmur Abdomen/GI: normal bowel sounds, non tender, soft Extremities/Musculoskelatal: no calf tenderness, no pedal edema, + pertinent finding (R hip with minimal swelling without ecchymosis of skin able to visualize; temperature equal in both lower extremities; pedal pulses 2+ with immediate cap refill; R large toe without nail) Neurologic/Psych: alert, oriented x 3 Skin: normal color, + pertinent finding (superficial skin tear without active bleeding of RUE; small non-bleeding laceration above R eyebrow) Diagnostics Laboratory Results Results Past 24 Hours Test 08/20/17 11:18 08/20/17 13:54 Range/Units White Blood Count 6.07 4.8-10.8 K/uL Red Blood Count 4.44 4.7-6.1 M/uL Hemoglobin 13.4 14.0-18.0 g/dL Hematocrit 39.8 42-52 % Mean Corpuscular Volume 89.6 80-100 fL Mean Corpuscular Hemoglobin 30.2 25-34 pg Mean Corpuscular Hemoglobin Concent 33.7 32-36 g/dl Platelet Count 223 130-400 K/uL Mean Platelet Volume 9.7 7.4-10.4 fL Neutrophils (%) (Auto) 65.4 % Lymphocytes (%) (Auto) 17.3 % Monocytes (%) (Auto) 14.3 % Eosinophils (%) (Auto) 2.3 % Basophils (%) (Auto) 0.5 % Neutrophils # (Auto) 3.97 1.4-6.5 K/uL Lymphocytes # (Auto) 1.05 1.2-3.4 K/uL Monocytes # (Auto) 0.87 0.11-0.59 K/uL Eosinophils # (Auto) 0.14 0-0.5 K/uL Basophils # (Auto) 0.03 0-0.2 K/uL RDW Standard Deviation 52.4 36.4-46.3 fL RDW Coefficient of Variation 15.9 11.5-14.5 % Immature Granulocyte % (Auto) 0.2 % Immature Granulocyte # (Auto) 0.01 0.00-0.02 K/uL Sodium Level 142 136-145 mmol/L Potassium Level 4.2 3.5-5.1 mmol/L Chloride Level 108 98-107 mmol/L Carbon Dioxide Level 26 21-32 mmol/L Anion Gap 8.0 3-11 mmol/L Blood Urea Nitrogen 17 7-18 mg/dl Creatinine 0.98 0.60-1.40 mg/dl Est Creatinine Clear Calc Drug Dose 47.0 ml/min Estimated GFR () 79.5 Estimated GFR (Non- 68.6 BUN/Creatinine Ratio 17.1 10-20 Random Glucose 102 70-99 mg/dl Calcium Level 9.0 8.5-10.1 mg/dl Total Bilirubin 0.8 0.2-1 mg/dl Aspartate Amino Transf (AST/SGOT) 28 15-37 U/L Alanine Aminotransferase (ALT/SGPT) 18 12-78 U/L Alkaline Phosphatase 55 45-117 U/L Total Protein 7.3 6.4-8.2 gm/dl Albumin 3.7 3.4-5.0 gm/dl Globulin 3.6 2.5-4.0 gm/dl Albumin/Globulin Ratio 1.0 0.9-2 Diagnostic Radiology CHEST ONE VIEW PORTABLE FINDINGS: The examination was performed in a portable supine fashion. The heart is at the upper limits of normal in size. There is aortic tortuosity. There is elevation the right hemidiaphragm. There are persistent interstitial pulmonary fibrotic changes. There is no acute parenchymal consolidation.[ IMPRESSION: Chronic interstitial lung disease similar to the prior study. No acute findings R PELVIS/UNILATERAL HIP 1 VIEW FINDINGS: Comminuted and mildly displaced intertrochanteric fracture within the right hip. This demonstrates mild superior displacement. The femoral head remains within the acetabulum. No fractures within the visual pelvic bones or left hip. IMPRESSION: Comminuted and mildly displaced intertrochanteric fracture within the right hip. EKG Poor data quality, interpretation may be adversely affected Normal sinus rhythm Possible Left atrial enlargement Left axis deviation Septal infarct (cited on or before 20-AUG-2017) Abnormal ECG When compared with ECG of 21-JUL-2017 21:10, No significant change was found Confirmed by ASHIA TOMLINSON MD ([id number]) on 08/20/2017 1:08:43 PM Impression Assessment and Plan Mr. 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 Mechanical Fall with R Intertrochanteric Fx: - Geriatric hip orders - Morphine 1-2 mg IV PRN, Tramadol PRN, and Lidoderm patch -- Avoid excessive Tylenol given biliary stenosis/recurrent cholangitis - Consult orthopedics Pre-Operative Clearance: - Patient with unremarkable cardiac history - No H/O CA, Cardiomyopathy, Arrhythmia, CHF, DVT/PE -- One episode of sinus pause on a previous admission that appeared vasovagal due to straining to urinate - Has chronic interstitial fibrosis and largely asymptomatic - mild intermittent RAMIRES and denies anginal symptoms on exertion - No current signs of infection; hemodynamically stable - Functional status is appropriate for age - independent living and utilizes walker - Patient is optimal for surgical intervention Interstitial Fibrosis and Pulm HTN: STABLE - Does not require supplemental O2 and minimal RAMIRES chronically Recurrent Cholangitis: - Recent episode early July - completed Abx course and no symptoms - Had biliary stent placed and due to be removed end of August - Ursodiol 300 mg BID CKD Stage II: BASELINE - 0.8-1.0 BPH: - Flomax 0.4 mg HS CREST Varient Scleroderma: STABLE GABE: STABLE DVT Prophylaxis: SCDs Code Status: FULL RESUSCITATION Disposition: - NPO at midnight for possible repair - PT/OT - [facility] on D/C Attending Addendum: I have physically seen and examined this patient, have directed the physician assistants medical activities, and agree with the H&P as noted above with the following exceptions as noted. The patient is awake, alert and oriented 3, well-developed and well-nourished , normocephalic and atraumatic, lying in bed and in no acute distress. HEENT--PERRL, EOMI, mucous membranes and oropharynx dry. Neck--supple, no JVD or bruits, thyroid normal, trachea midline, no adenopathy. Heart--normal S1 and S2, no extra beats, no murmurs, rubs or gallops. Lungs--clear bilaterally with good air movement, no respiratory distress, no accessory muscle use. Abdomen--normal bowel sounds and soft, nontender and nondistended, no hernias or masses, no organomegaly. Extremities--no cyanosis, clubbing or edema. There are good distal pulses b/l. Dermatologic--normal skin turgor, normal color, warm and dry, no abnormal lymph nodes, no rash. Neurologic--cranial nerves II through XII grossly intact. Rheumatologic--pain on palpation right hip and pelvis. Psychiatric--normal affect. Assessment and Plan: Right intertrochanteric fracture-- Geriatric hip orders Tylenol for mild pain, tramadol for moderate pain, morphine for severe pain Consult orthopedics. Pulmonary hypertension/interstitial fibrosis-- At his baseline. Recurrent cholangitis/biliary stent placement-- Continue ursodiol. BPH-- Continue Flomax CREST-- Nonactive Level of Care Med/Surg Advanced Directives Existing Living Will: Yes Existing Power of Crm Coordinator: Yes (NANCY BEATTY ) Resuscitation Status FULL RESUSCITATION VTE Prophylaxis VTE Risk Assessment Done? Y/N: Yes Risk Level: Moderate Given or contraindicated: SCD's Social Service Consult Lives in Personal Care ([facility])
[2017-08-20 14:33] LABS: URINE APPEARANCE CLEAR (CLEAR); URINE BILIRUBIN NEG (NEG); URINE COLOR YELLOW; URINE NITRITE NEG (NEG); URINE PH 6.5 (4.5-7.5); URINE SPECIFIC GRAVITY 1.015 (1.000-1.030); UROBILINOGEN NEG (NEG); ZZUR CULT IF INDIC CLEAN CATCH NO
[2017-08-20 14:39] LABS: MANUAL MICROSCOPIC REQUIRED? NO; REVIEW REQ? NO
[2017-08-20] MEDS: SODIUM CHLORIDE 0.9% 1000ML 1,000 ML IV SCH (15:10)
[2017-08-20 15:33] VITALS: BP 156/92; PULSE 81; TEMP 36.6; O2SAT 100
[2017-08-20] MEDS: MoRPHine SULFATE 2 MG/ML CARP IV PRN ×2 (17:59→20:01)
[2017-08-20] MEDS: DOCUSATE SODIUM/SENNA 50/8.6MG TAB PO SCH (19:07)
[2017-08-20] MEDS: URSODIOL 300 MG CAP PO SCH (20:05)
[2017-08-20] MEDS: TAMSULOSIN HCL 0.4 MG CAP PO SCH (20:05)
[2017-08-20 23:31] VITALS: BP 110/71; PULSE 74; TEMP 36.4; O2SAT 97
[2017-08-21] VITALS (11 sets, daily range): BP systolic 106–132; BP diastolic 64–81; PULSE 65–92; TEMP 36.3–36.8; O2SAT 94–100
[2017-08-21] MEDS: SODIUM CHLORIDE 0.9% 1000ML 1,000 ML IV SCH ×3 (04:10→21:17)
[2017-08-21 05:53] LABS: HEMATOCRIT 35.8 % (42-52); MEAN CELL VOLUME 90.4 fL (80-100); MEAN CORPUSCULAR HEMOGLOBIN 29.3 pg (25-34); MEAN CORPUSCULAR HGB CONC 32.4 g/dl (32-36); MEAN PLATELET VOLUME 9.7 fL (7.4-10.4); PLATELET COUNT 183 K/uL (130-400); RED BLOOD COUNT 3.96 M/uL (4.7-6.1); WHITE BLOOD COUNT 6.89 K/uL (4.8-10.8)
[2017-08-21] MEDS ORDERED: CEFAZOLIN IV 2,000 MG in DEXTROSE 5% 50ML 50 ML IV SCH (06:00)
[2017-08-21] MEDS ORDERED: CEFAZOLIN 2000 MG/60 ML D5W IV SCH (06:00)
[2017-08-21 06:17] LABS: BUN/CREATININE RATIO 22.6 (10-20); CALCIUM 8.2 mg/dl (8.5-10.1); CREATININE 0.78 mg/dl (0.60-1.40)
[2017-08-21] MEDS ORDERED: BUPIVACAINE 0.5 % 5 MG/1 ML MPF 30ML VIAL ONE (06:53)
[2017-08-21] MEDS ORDERED: FENTANYL CITRATE INJ 50 MCG/1 ML 2 ML VIAL ONE (06:57)
[2017-08-21] MEDS ORDERED: DEXAMETHASONE SOD INJ 4 MG/ML VIAL ONE (06:57)
[2017-08-21] MEDS ORDERED: ONDANSETRON INJ 2 MG/ML 2 ML VIAL ONE (06:57)
[2017-08-21] MEDS ORDERED: PROPOFOL IV EMULSION 10 MG/ML 20 ML VIAL IV ONE (06:57)
[2017-08-21] MEDS ORDERED: LIDOCAINE HCL 2% 2 ML VIAL (20MG/ML) ONE (06:57)
[2017-08-21] MEDS ORDERED: ROCURONIUM BROMIDE 10 MG/ML 5 ML VIAL IV ONE (06:58)
[2017-08-21] MEDS ORDERED: DEXAMETHASONE SOD INJ 4 MG/ML VIAL IV PRN (07:15)
[2017-08-21] MEDS ORDERED: HYDROmorphone INJ 1 MG/ML SYR IV PRN (07:15)
[2017-08-21] MEDS ORDERED: FENTANYL CITRATE INJ 50 MCG/1 ML 2 ML VIAL IV PRN (07:15)
[2017-08-21] MEDS ORDERED: ONDANSETRON INJ 2 MG/ML 2 ML VIAL IV PRN (07:15)
[2017-08-21] MEDS ORDERED: PHENYLEPHRINE 100MCG/ML 5ML SYR IV PRN (07:15)
[2017-08-21] MEDS ORDERED: EpHEDrine SULFATE INJ 50 MG/ML AMP IV PRN (07:15)
[2017-08-21] MEDS ORDERED: ATROPINE SULFATE 0.1 MG/ML 5ML SYR IV PRN (07:15)
[2017-08-21] MEDS ORDERED: CEFAZOLIN SOD 1 GM VIAL ONE (08:43)
[2017-08-21] MEDS ORDERED: PHENYLEPHRINE 100MCG/ML 5ML SYR ONE (08:47)
[2017-08-21] MEDS ORDERED: EpHEDrine SULFATE INJ 50 MG/ML AMP ONE (08:47)
[2017-08-21] MEDS: LIDODERM (LIDOCAINE) PATCH 5% TD SCH (09:00)
--- NOTE | 2017-08-21 09:19 | DIAGNOSTIC IMAGING REPORT ---
Radiology R HIP OR FILMS CLINICAL HISTORY: 86 years-old Male presenting with RT TROCHNAIL. TECHNIQUE: 4 fluoroscopic spot image(s) obtained as part of an intraoperative procedure. COMPARISON: 08/20/2017. FINDINGS/IMPRESSION: There has been interval intramedullary nail fixation across the right femoral neck and proximal metadiaphysis with interlocking screw for the comminuted intertrochanteric fracture. The lesser trochanter remains mildly displaced. Otherwise normal anatomic alignment. Hip joint congruent. Please see surgical report for further details. Fluoroscopy dosage (mGy): Not available. Fluoroscopy time: 56 seconds. Number of fluoroscopic spot images: 4. Electronically signed by: Román Elizabeth M.D. 08/21/2017 9:18 AM Dictated Date/Time: 08/21/2017 9:16 AM
--- NOTE | 2017-08-21 09:28 | [facility] Post Operative Brief Note ---
Immediate Operative Summary Operative Date Aug 21, 2017. Pre-Operative Diagnosis Right Displaced 4-part Intertrochanteric Hip Fracture Post-Operative Diagnosis Right Displaced 4-part Intertrochanteric Hip Fracture Procedure(s) Performed Open Reduction Internal Fixation Right 4-Part Intertrochanteric Hip Fracture Surgeon Dr Desouza Phlebotomist Medical Lab Assistant Surgeon(s) Jason Fry PA-C Estimated Blood Loss 20ML Findings See Dict Specimens none Drains None Anesthesia GLMA w/ local Complication(s) None Disposition Recovery Room / PACU
[2017-08-21] MEDS ORDERED: MAGNESIUM HYDROXIDE SUSP 30 ML UDC PO PRN (09:30)
--- NOTE | 2017-08-21 10:01 | Anesthesiology Progress Note ---
Anesthesia Post Op Note Date & Time Aug 21, 2017 at 10:00 Vital Signs Pain Intensity: 0 Vital Signs Past 12 Hours Date Time Temp Pulse Resp B/P (MAP) Pulse Ox O2 Delivery O2 Flow Rate FiO2 08/21/17 09:50 36.4 83 14 129/74 100 Nasal Cannula 2 08/21/17 09:40 85 14 114/61 100 Nasal Cannula 2 08/21/17 09:30 83 14 114/61 100 Oxymask 3 08/21/17 09:21 36.0 67 12 129/71 100 Oxymask 5 08/21/17 06:46 36.6 85 16 129/67 (87) 94 Room Air 08/20/17 23:31 36.4 74 16 110/71 (84) 97 Room Air 08/20/17 23:20 Room Air Notes Mental Status: alert / awake / arousable, participated in evaluation Pt Amnestic to Procedure: Yes Nausea / Vomiting: adequately controlled Pain: adequately controlled Airway Patency, RR, SpO2: stable & adequate BP & HR: stable & adequate Hydration State: stable & adequate Anesthetic Complications: no major complications apparent
--- NOTE | 2017-08-21 10:03 | OPERATIVE REPORT ---
DATE OF OPERATION: 08/21/2017 PREOPERATIVE DIAGNOSIS: Right displaced 4-part intertrochanteric hip fracture. POSTOPERATIVE DIAGNOSIS: Same. PROCEDURE: Open reduction and internal fixation of right displaced intertrochanteric 4-part hip fracture with a Synthes 12 mm x 130 degree titanium cannulated trochanteric nail, 235 mm in length with an 11 mm x 100 mm titanium helical blade and a 5 mm x 40 mm locking screw. SURGEON: Dr. Maciel Desouza. WIRE MILL OPERATOR: Tha Fry PA-C, who was present for patient positioning, sterile prep and drape, management of retractors and instruments. He was present through the critical portions of the case including wound closure, application of sterile dressing and transport of the patient to recovery. ANESTHESIA: General LMA with local. SPECIMENS: None. DRAINS: None. COMPLICATIONS: None. BLOOD LOSS: 20 mL. PERTINENT HISTORY: This is an 86-year-old gentleman who suffered a mechanical fall on his right hip. Unable to ambulate and transferred to [facility]. After evaluation by the ER physician and radiographs, he was noted to have a displaced 4-part intertrochanteric hip fracture and he was then scheduled for consultation with orthopedics and eventual surgery as indicated. All potential risks, benefits, complications, alternatives, rehab, potential for incomplete relief of symptoms, need for further surgery, DVT, PE, , persistent pain, swelling, scarring, weakness, neurovascular injury, wound complications, hardware failure, nonunion, and malunion were discussed with the patient and his family and they decided to proceed with procedure as indicated. DESCRIPTION OF PROCEDURE: The patient was transferred to the operative suite. The proper site was identified. The consent was reviewed, the patient was then administered sedation and spinal anesthetic. Once appropriate, the patient then transferred to the fracture table where the lower extremity was placed in fracture table traction and the nonoperative leg was placed in the well leg smith. All bony prominences were properly padded and protected. The padded post was placed in the peroneal and the patient was positioned appropriately. Next the right leg was placed on traction and reduction of the fracture was performed under fluoroscopic control. Next the operative hip was then sterilely prepped and draped in the usual fashion. Next a 10-blade scalpel incision was used to make an incision proximal to the greater trochanter. The incision was deep in the subcutaneous tissue and fascia and the tip of the greater trochanter was then palpated followed by placement of a guide pin under fluoroscopic control driven into the greater trochanter down to the level of the less trochanter. This was confirmed in AP and lateral projections followed by placement of the proximal reamer over the cannulated guide pin. Next the reamer was then removed using the soft tissue protector, which was also removed. Next the ball tip guide meagan was placed into the proximal femur under fluoroscopic control confirmed with AP and lateral fluoroscope projections. Next the trochanteric nail was then passed over the guide meagan into the femur, the guide meagan was removed and then under fluoroscopic control appropriate level of the femoral nail was then placed in AP projections. Next the targeting device was then fixed to the driving handle and 10-blade scalpel incision was made in the lateral aspect of the thigh. Next the tissue protector and cannulated guide system was then passed into the soft tissue until it was securely fixed against a lateral aspect of the femoral cortex. This was also confirmed under C-arm. Next the guide pin for the spiral blade was driven into the lateral aspect of the femur confirming this with AP lateral projections until the guide pin was in the center of the femoral neck and head approximately 5 mm from the subcortical bone of the femur. Next the spiral blade was then measured and then the lateral cortex was then drilled with the cortex reamer followed by use of the triple reamer with the depth stop set at appropriate depth. In this case a 84w920 mm spiral blade was then inserted over the cannulated guide meagan under fluoroscopic control. This was seated appropriately then traction was reduced from the limb and the fracture was then gently compressed and then locked proximally with the flexible screwdriver. Next the spiral blade was then disengaged from its insertion handle, insertion handle was then removed and the guide pin was removed from the femoral neck and head. Next the lateral targeting arm was used to insert the distal locking screw. First a 10-blade scalpel incision was made in the lateral aspect of the thigh, captured drill sleeves were then tamped gently to the lateral aspect of the femoral cortex then the locking screw hole was then drilled, measured and then an appropriate length screw was placed to lock the distal aspect of the nail. Next targeting sleeves were then removed. The insertion arm was then removed from the nail and final x-rays were obtained in AP and lateral projections. All incisions were then copiously irrigated with sterile normal saline. The proximal gluteus fascia was then closed using interrupted #1 Vicryl, the dermis was closed using buried interrupted 2-0 Vicryl sutures in all three incisions and the skin was then closed using skin justina. A sterile compressive dressing consisting of Xeroform gauze, sterile 4 x 4's and Tegaderm was applied. The patient was then awakened and taken to recovery in stable condition. I attest to the content of the Intraoperative Record and any orders documented therein. Any exceptions are noted below. MTDD
--- NOTE | 2017-08-21 10:19 | DIAGNOSTIC IMAGING REPORT ---
R HIP UNILATERAL 2 VIEWS CLINICAL HISTORY: 86 years-old Male presenting with post-op. TECHNIQUE: Frontal and crosstable lateral views of the right hip were obtained. COMPARISON: 08/21/2017 at 8:27 AM. FINDINGS: Redemonstration of intramedullary nail fixation through the right femoral neck and and proximal right femoral metadiaphysis with interlocking screw. Associated skin justina and soft tissue emphysema. The intertrochanteric fracture plane remains evident with 9 mm of diastases along the greater trochanter. The medial portion of the fracture plane is nondisplaced. Overall anatomic alignment is maintained. The lesser trochanter is displaced by at most 9 mm. IMPRESSION: Expected postsurgical changes status post intramedullary nail fixation of the intertrochanteric right femur fracture. Electronically signed by: Román Elizabeth M.D. 08/21/2017 10:18 AM Dictated Date/Time: 08/21/2017 10:14 AM
--- NOTE | 2017-08-21 10:19 | ORTHOPEDIC CONSULTATION ---
DATE OF CONSULTATION: 08/20/2017 DATE OF CONSULTATION: 08/20/2017 HISTORY OF PRESENT ILLNESS: This is an 86-year-old gentleman who was seen at request of Dr. Del Angel and Dr. Román Miranda for right hip fracture. The patient had a fall when he lost his balance when he was bending over to place bottles of water on a shelf on 08/20/2017. He resided at [facility]. He hit his head and arm on the floor. He was unable to ambulate. He did not lose consciousness. He had no lightheadedness or dizziness. He presented to [facility], was evaluated and admitted and then consultation was made to orthopedics. PAST MEDICAL HISTORY: Interstitial fibrosis, pulmonary hypertension, CREST variant scleroderma, CKD stage III, GABE, BPH, recurrent cholangitis, biliary stenosis with stenting. PAST SURGICAL HISTORY: Right total knee arthroplasty by [facility] in [place], biliary stenting. ALLERGIES: No known drug allergies. MEDICATIONS: Ensure Plus vanilla, Folvite 1 mg p.o. daily, multivitamin 1 p.o. q.a.m., omeprazole 20 mg p.o. b.i.d., Flomax 0.4 mg p.o. at bedtime, Actigall 300 mg p.o. b.i.d., and Reclast 1 dose yearly. SOCIAL HISTORY: Denies tobacco, alcohol or drug use. He is . He lives in [facility], he is retired. PHYSICAL EXAMINATION: GENERAL: This is an 86-year-old gentleman who is pleasant. He was lying in his hospital room bed. Alert and oriented x3. Speech clear and fluent. Affect is appropriate. He is somewhat hard of hearing. The right lower extremity is slightly shortened. SKIN: Warm, dry and intact. Cap refill less than 2 seconds. Dorsalis pedis and posterior pulses 2/4. Slight external rotation right lower extremity compared to the left. Positive log roll test, positive heel strike, tenderness over the groin and proximal hip of the right lower extremity. No significant bruising. Radiographs reviewed demonstrate a displaced 4-part intertrochanteric hip fracture with osteopenia. IMPRESSION: Right 4-part displaced intertrochanteric hip fracture. RECOMMENDATIONS: For open reduction internal fixation with trochanteric nailing. All potential risks, benefits, complications, alternatives, rehab were discussed with the patient. The patient will be scheduled for surgery, n.p.o. after midnight. Thank you for the opportunity to consult in the care of this patient Que Watts.
--- NOTE | 2017-08-21 12:35 | Hospitalist Progress Note ---
Hospitalist Progress Note Date of Service Aug 21, 2017. (Polly Daugherty ., PA-C) Subjective Pt evaluation today including: conversation w/ patient, physical exam, lab review, review of studies, review of inpatient medication list Voiding: no voiding problems Patient feeling well. R hip Fx secondary to mechanical fall s/p procedure by Dr. Desouza this AM. Pain is well controlled. Had vanilla pudding postop. Tolerated well. No flatus/BM postop. Last BM was on 08/20. On O2 supplement- does NOT wear chronically. No SOB. Encourage incentive spirometer. Patient denies any fever, chills, sweats, lightheadedness, dizziness, vision changes, CP, palpitations, edema, SOB, wheezing, cough, abdominal pain, nausea, vomiting, diarrhea, urinary symptoms, melena, numbness/tingling, weakness, anxiety/depression, active bleeding, or new skin discoloration/changes. (Polly Daugherty ., PA-C) Medications Current Inpatient Medications Medications (Trade) Dose Ordered Sig/Alycia Route Start Time Stop Time Status Last Admin Dose Admin Acetaminophen (Tylenol Tab) 650 mg Q4H PRN PO 08/20/17 14:00 09/19/17 13:59 Al Hydrox/Mg Hydrox/Simethicone (Maalox Max Susp) 15 ml Q4H PRN PO 08/20/17 14:00 09/19/17 13:59 Ondansetron HCl (Zofran Inj) 4 mg Q6H PRN IV 08/20/17 14:00 09/19/17 13:59 Sodium Chloride 1,000 ml @ 80 mls/hr [id number] IV 08/20/17 13:54 09/19/17 13:53 08/21/17 04:10 80 MLS/HR Naloxone HCl (Narcan Inj) 0.1 mg PRN PRN IV 08/20/17 14:00 09/19/17 13:59 Senna/Docusate Sodium (Senokot S Tab) 2 tab HS PO 08/20/17 21:00 09/19/17 20:59 Polyethylene (Miralax Powder Packet) 17 gm DAILY PRN PO 08/20/17 14:00 09/19/17 13:59 Magnesium Hydroxide (Milk Of Magnesia Susp) 30 ml DAILY PRN PO 08/20/17 14:00 09/19/17 13:59 Bisacodyl (Dulcolax Supp) 10 mg DAILY PRN MN 08/20/17 14:00 09/19/17 13:59 Folic Acid (Folvite Tab) 1 mg QAM PO 08/21/17 09:00 09/20/17 08:59 Multivitamins (Multivitamin Tab) 1 tab QAM PO 08/21/17 09:00 09/20/17 08:59 Tamsulosin HCl (Flomax Cap) 0.4 mg HS PO 08/20/17 21:00 09/19/17 20:59 08/20/17 20:05 0.4 MG Ursodiol (Actigall Cap) 300 mg BID PO 08/20/17 21:00 09/19/17 20:59 08/20/17 20:05 300 MG Pantoprazole Sodium (Protonix Tab) 40 mg QAM PO 08/21/17 09:00 09/20/17 08:59 Morphine Sulfate (MoRPHine SULFATE INJ) 1 mg Q2H PRN IV 08/20/17 14:15 09/03/17 14:14 08/20/17 14:55 1 MG Morphine Sulfate (MoRPHine SULFATE INJ) 2 mg Q2H PRN IV 08/20/17 14:15 09/03/17 14:14 08/20/17 20:01 2 MG Tramadol HCl (Ultram Tab) 50 mg Q4H PRN PO 08/20/17 14:15 09/19/17 14:14 Lidocaine (Lidoderm Patch 5%) 1 patch QAM TD 08/21/17 09:00 09/20/17 08:59 Miscellaneous (Remove Lidoderm Patch) 1 ea DAILY@21 N/A 08/20/17 21:00 09/19/17 20:59 Hydralazine HCl (HydrALAZINE INJ) 10 mg Q6 PRN IV. 08/20/17 14:15 09/19/17 14:14 Cefazolin Sodium 60 ml @ 100 mls/hr PREOP IV 08/21/17 06:00 08/21/17 18:00 Cefazolin Sodium 1000 mg/Dextrose 55 ml @ 100 mls/hr Q8H IV 08/21/17 16:00 08/22/17 15:59 Magnesium Hydroxide (Milk Of Magnesia Susp) 30 ml Q6H PRN PO 08/21/17 09:30 09/20/17 09:29 Docusate Sodium (coLACE CAP) 100 mg BID PO 08/21/17 21:00 09/20/17 20:59 Aspirin (Ecotrin Tab) 81 mg BID PO 08/21/17 21:00 09/20/17 20:59 (Polly Daugherty, ZULEYKA) Objective Vital Signs Date Time Temp Pulse Resp B/P (MAP) Pulse Ox O2 Delivery O2 Flow Rate FiO2 08/21/17 10:50 36.3 86 18 108/64 (79) 100 Nasal Cannula 2.0 08/21/17 10:26 100 Nasal Cannula 2.0 08/21/17 10:13 36.4 82 18 132/81 (98) 100 Nasal Cannula 2.0 08/21/17 10:00 84 18 120/65 100 Nasal Cannula 2 08/21/17 09:50 36.4 83 14 129/74 100 Nasal Cannula 2 08/21/17 09:40 85 14 114/61 100 Nasal Cannula 2 08/21/17 09:30 83 14 114/61 100 Oxymask 3 08/21/17 09:21 36.0 67 12 129/71 100 Oxymask 5 08/21/17 06:46 36.6 85 16 129/67 (87) 94 Room Air 08/20/17 23:31 36.4 74 16 110/71 (84) 97 Room Air 08/20/17 23:20 Room Air 08/20/17 19:21 Room Air 08/20/17 15:33 36.6 81 18 156/92 (113) 100 Room Air 08/20/17 15:15 Room Air 08/20/17 14:56 78 144/90 Room Air 08/20/17 13:58 95 Room Air 08/20/17 13:34 79 08/20/17 13:31 143/91 151/88 08/20/17 13:07 75 18 95 08/20/17 13:01 128/82 08/20/17 12:37 77 26 08/20/17 12:32 143/96 08/20/17 12:07 74 18 158/89 96 Room Air 08/20/17 12:07 77 22 08/20/17 12:01 158/89 08/20/17 11:58 156/87 08/20/17 11:37 74 21 92 08/20/17 11:19 150/85 08/20/17 11:18 82 08/20/17 11:14 36.3 75 150/85 96 Room Air (Polly Daugherty PA-C) Physical Exam General Appearance: no apparent distress Eyes: PERRL ENT: hearing grossly normal Neck: supple Respiratory/Chest: lungs clear, no respiratory distress, no accessory muscle use Cardiovascular: regular rate, rhythm Abdomen: normal bowel sounds, non tender, soft Extremities: no pedal edema, no calf tenderness, + pertinent finding (TEDs and SCDs on ) Neurologic/Psychiatric: alert, normal mood/affect, oriented x 3 Skin: normal color, warm/dry, no rash (Polly Daugherty, SUZI-C) Laboratory Results Last 24 Hours Test 08/20/17 11:18 08/20/17 14:05 08/21/17 05:07 White Blood Count 6.07 K/uL 6.89 K/uL Red Blood Count 4.44 M/uL 3.96 M/uL Hemoglobin 13.4 g/dL 11.6 g/dL Hematocrit 39.8 % 35.8 % Mean Corpuscular Volume 89.6 fL 90.4 fL Mean Corpuscular Hemoglobin 30.2 pg 29.3 pg Mean Corpuscular Hemoglobin Concent 33.7 g/dl 32.4 g/dl Platelet Count 223 K/uL 183 K/uL Mean Platelet Volume 9.7 fL 9.7 fL Neutrophils (%) (Auto) 65.4 % Lymphocytes (%) (Auto) 17.3 % Monocytes (%) (Auto) 14.3 % Eosinophils (%) (Auto) 2.3 % Basophils (%) (Auto) 0.5 % Neutrophils # (Auto) 3.97 K/uL Lymphocytes # (Auto) 1.05 K/uL Monocytes # (Auto) 0.87 K/uL Eosinophils # (Auto) 0.14 K/uL Basophils # (Auto) 0.03 K/uL RDW Standard Deviation 52.4 fL 53.0 fL RDW Coefficient of Variation 15.9 % 15.9 % Immature Granulocyte % (Auto) 0.2 % Immature Granulocyte # (Auto) 0.01 K/uL Sodium Level 142 mmol/L 141 mmol/L Potassium Level 4.2 mmol/L 4.0 mmol/L Chloride Level 108 mmol/L 108 mmol/L Carbon Dioxide Level 26 mmol/L 25 mmol/L Anion Gap 8.0 mmol/L 8.0 mmol/L Blood Urea Nitrogen 17 mg/dl 18 mg/dl Creatinine 0.98 mg/dl 0.78 mg/dl Est Creatinine Clear Calc Drug Dose 47.0 ml/min 59.0 ml/min Estimated GFR () 79.5 93.4 Estimated GFR (Non- 68.6 80.6 BUN/Creatinine Ratio 17.1 22.6 Random Glucose 102 mg/dl 98 mg/dl Calcium Level 9.0 mg/dl 8.2 mg/dl Total Bilirubin 0.8 mg/dl Aspartate Amino Transf (AST/SGOT) 28 U/L Alanine Aminotransferase (ALT/SGPT) 18 U/L Alkaline Phosphatase 55 U/L Total Protein 7.3 gm/dl Albumin 3.7 gm/dl Globulin 3.6 gm/dl Albumin/Globulin Ratio 1.0 Urine Color YELLOW Urine Appearance CLEAR Urine pH 6.5 Urine Specific [place] 1.015 Urine Protein NEG Urine Glucose (UA) NEG Urine Ketones TRACE Urine Occult Blood NEG Urine Nitrite NEG Urine Bilirubin NEG Urine Urobilinogen NEG Urine Leukocyte Esterase NEG (Polly Daugherty, PA-C) Assessment and Plan Mr. 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 Mechanical fall with R intertrochanteric Fx s/p ORIF by Dr. Desouza on 08/21: - Pain management, PT/OT, and DVT prophylaxis as per ortho - Follow postop CBC and PRP - O2 protocol, wean as tolerated. Encouraged incentive spirometer Interstitial Fibrosis and pulmonary HTN- STABLE Recurrent Cholangitis: Ursodiol 300 mg BID CKD, stage II- baseline Cr 0.8-1.0- STABLE BPH: Flomax 0.4 mg HS CREST variant Scleroderma: STABLE GABE- STABLE GI prophylaxis: Protonix DVT Prophylaxis: ASA 81 mg BID as per ortho Code Status: FULL RESUSCITATION Disposition: Resident of [place]- PT/OT and CM consulted (Polly Daugherty, PA-C) I agree with the above progress note. I examined patient and discussed case and plan with patient and APC. My physical exam did not vary from APC's exam of patient. (Ramon Maza M.D.)
[2017-08-21] MEDS: CEFAZOLIN IV 1,000 MG in DEXTROSE 5% 50ML 50 ML IV SCH ×2 (16:14→23:03)
[2017-08-21] MEDS: MULTIVITAMIN TAB PO SCH (16:15)
[2017-08-21] MEDS: PANTOprazole SOD 40 MG TAB PO SCH (16:16)
[2017-08-21] MEDS: URSODIOL 300 MG CAP PO SCH ×2 (16:16→20:12)
[2017-08-21] MEDS: DOCUSATE SODIUM/SENNA 50/8.6MG TAB PO SCH (20:12)
[2017-08-21] MEDS: TAMSULOSIN HCL 0.4 MG CAP PO SCH (20:13)
[2017-08-21] MEDS: DOCUSATE SODIUM 100 MG CAP PO SCH (20:13)
[2017-08-21] MEDS: ASPIRIN 81 MG ECTAB PO SCH (20:32)
[2017-08-21] MEDS ORDERED: ASPIRIN 325 MG ECTAB PO SCH (21:00)
[2017-08-22 03:32] VITALS: BP 120/65; PULSE 75; TEMP 36.4; O2SAT 96
[2017-08-22] MEDS: SODIUM CHLORIDE 0.9% 1000ML 1,000 ML IV SCH (03:35)
[2017-08-22 05:45] LABS: HEMATOCRIT 31.6 % (42-52); MEAN CELL VOLUME 90.5 fL (80-100); MEAN CORPUSCULAR HEMOGLOBIN 29.2 pg (25-34); MEAN CORPUSCULAR HGB CONC 32.3 g/dl (32-36); MEAN PLATELET VOLUME 9.7 fL (7.4-10.4); PLATELET COUNT 166 K/uL (130-400); RED BLOOD COUNT 3.49 M/uL (4.7-6.1); WHITE BLOOD COUNT 7.86 K/uL (4.8-10.8)
[2017-08-22 06:21] LABS: BUN/CREATININE RATIO 17.3 (10-20); CREATININE 0.73 mg/dl (0.60-1.40)
[2017-08-22 07:15] VITALS: BP 100/73; PULSE 70; TEMP 36.3; O2SAT 97
--- NOTE | 2017-08-22 08:30 | Orthopedic Progress Note ---
Orthopedic Progress Note Date of Service Aug 22, 2017. Subjective Post OP Day: 1 Reports: feeling well, pain controlled w PO medications, Denies: complaints, chest pain, SOB, nausea / vomiting, light headedness, calf pain Objective calves soft nontender, N/V intact, capillary refill less than 2 sec., dressing C /D/I, A&O x3, toes mobile Date Time Temp Pulse Resp B/P (MAP) Pulse Ox O2 Delivery O2 Flow Rate FiO2 08/22/17 07:15 36.3 70 18 100/73 (82) 97 Room Air 08/22/17 03:32 36.4 75 16 120/65 (83) 96 Room Air 08/21/17 22:50 36.5 85 16 106/72 (83) 98 Room Air 08/21/17 19:21 36.6 92 18 118/75 (89) 98 Room Air 08/21/17 19:05 Room Air 08/21/17 15:44 36.5 92 18 117/78 (91) 97 Room Air 08/21/17 13:10 36.7 92 18 110/66 (81) 97 Room Air 08/21/17 12:18 36.5 90 18 126/81 (96) 96 Nasal Cannula 2.0 08/21/17 12:15 36.5 90 18 126/81 (96) 96 Nasal Cannula 2.0 08/21/17 11:22 36.8 65 18 117/78 (91) 100 Nasal Cannula 2.0 08/21/17 10:50 36.3 86 18 108/64 (79) 100 Nasal Cannula 2.0 08/21/17 10:30 Room Air 08/21/17 10:26 100 Nasal Cannula 2.0 08/21/17 10:13 36.4 82 18 132/81 (98) 100 Nasal Cannula 2.0 08/21/17 10:00 84 18 120/65 100 Nasal Cannula 2 08/21/17 09:50 36.4 83 14 129/74 100 Nasal Cannula 2 08/21/17 09:40 85 14 114/61 100 Nasal Cannula 2 08/21/17 09:30 83 14 114/61 100 Oxymask 3 08/21/17 09:21 36.0 67 12 129/71 100 Oxymask 5 Laboratory Results 24 Hours: Test 08/22/17 05:16 Hematocrit 31.6 % Hemoglobin 10.2 g/dL Assessment & Plan Assessment: POD #1, Right hip ORIF Intertrochanteric Hip Fracture 1. Interstitial Fibrosis 2. Pulmonary HTN 3. CREST variant Scleroderma 4. CKD Stage III 5. GABE 6. BPH 7. Recurrent Cholangitis 8. Biliary Stenosis S/P Stent Plan: PT/ OT- PWB w walker DVT proph- ASA Disposition as per primary team Inhouse Planning Pain Management: Ultram, Morphine, PO Tylenol DVT Prophylaxis: TEDs, SCDs, ASA Discharge Planning Discharge Planning: uncertain
[2017-08-22] MEDS ORDERED: MULTIVITAMIN TAB PO SCH (09:00)
[2017-08-22] MEDS: LIDODERM (LIDOCAINE) PATCH 5% TD SCH (09:30)
[2017-08-22] MEDS: DOCUSATE SODIUM 100 MG CAP PO SCH ×2 (09:31→20:44)
[2017-08-22] MEDS: ASPIRIN 81 MG ECTAB PO SCH ×2 (09:31→20:44)
[2017-08-22] MEDS: MULTIVITAMIN TAB PO SCH (09:54)
[2017-08-22] MEDS: PANTOprazole SOD 40 MG TAB PO SCH (09:54)
[2017-08-22] MEDS: URSODIOL 300 MG CAP PO SCH ×2 (09:54→20:44)
[2017-08-22] MEDS: CEFAZOLIN IV 1,000 MG in DEXTROSE 5% 50ML 50 ML IV SCH (09:55)
--- NOTE | 2017-08-22 12:20 | Hospitalist Progress Note ---
Hospitalist Progress Note Date of Service Aug 22, 2017. (Polly Daugherty ., PA-C) Subjective Pt evaluation today including: conversation w/ patient, physical exam, lab review, review of inpatient medication list Voiding: no voiding problems Patient feeling well. Sitting in wheelchair at bedside. Eating and drinking OK. +flatus, no BM postop yet. Pain is well controlled. Worked w/ PT this AM w/out significant difficulty. Would like to go to [facility] at discharge for rehab. Patient denies any fever, chills, sweats, lightheadedness, dizziness, vision changes, CP, palpitations, edema, SOB, wheezing, cough, abdominal pain, nausea, vomiting, diarrhea, urinary symptoms, melena, numbness/tingling, weakness, anxiety/depression, active bleeding, or new skin discoloration/changes. (Polly Daugherty ., PA-C) Medications Current Inpatient Medications Medications (Trade) Dose Ordered Sig/Alycia Route Start Time Stop Time Status Last Admin Dose Admin Acetaminophen (Tylenol Tab) 650 mg Q4H PRN PO 08/20/17 14:00 09/19/17 13:59 Al Hydrox/Mg Hydrox/Simethicone (Maalox Max Susp) 15 ml Q4H PRN PO 08/20/17 14:00 09/19/17 13:59 Ondansetron HCl (Zofran Inj) 4 mg Q6H PRN IV 08/20/17 14:00 09/19/17 13:59 Sodium Chloride 1,000 ml @ 80 mls/hr [id number] IV 08/20/17 13:54 09/19/17 13:53 08/22/17 03:35 80 MLS/HR Naloxone HCl (Narcan Inj) 0.1 mg PRN PRN IV 08/20/17 14:00 09/19/17 13:59 Senna/Docusate Sodium (Senokot S Tab) 2 tab HS PO 08/20/17 21:00 09/19/17 20:59 08/21/17 20:12 2 TAB Polyethylene (Miralax Powder Packet) 17 gm DAILY PRN PO 08/20/17 14:00 09/19/17 13:59 Magnesium Hydroxide (Milk Of Magnesia Susp) 30 ml DAILY PRN PO 08/20/17 14:00 09/19/17 13:59 Bisacodyl (Dulcolax Supp) 10 mg DAILY PRN AL 08/20/17 14:00 09/19/17 13:59 Folic Acid (Folvite Tab) 1 mg QAM PO 08/21/17 09:00 09/20/17 08:59 08/22/17 09:54 1 MG Multivitamins (Multivitamin Tab) 1 tab QAM PO 08/21/17 09:00 09/20/17 08:59 08/22/17 09:54 1 TAB Tamsulosin HCl (Flomax Cap) 0.4 mg HS PO 08/20/17 21:00 09/19/17 20:59 08/21/17 20:13 0.4 MG Ursodiol (Actigall Cap) 300 mg BID PO 08/20/17 21:00 09/19/17 20:59 08/22/17 09:54 300 MG Pantoprazole Sodium (Protonix Tab) 40 mg QAM PO 08/21/17 09:00 09/20/17 08:59 08/22/17 09:54 40 MG Morphine Sulfate (MoRPHine SULFATE INJ) 1 mg Q2H PRN IV 08/20/17 14:15 09/03/17 14:14 08/20/17 14:55 1 MG Morphine Sulfate (MoRPHine SULFATE INJ) 2 mg Q2H PRN IV 08/20/17 14:15 09/03/17 14:14 08/20/17 20:01 2 MG Tramadol HCl (Ultram Tab) 50 mg Q4H PRN PO 08/20/17 14:15 09/19/17 14:14 08/21/17 21:15 50 MG Lidocaine (Lidoderm Patch 5%) 1 patch QAM TD 08/21/17 09:00 09/20/17 08:59 Miscellaneous (Remove Lidoderm Patch) 1 ea DAILY@21 N/A 08/20/17 21:00 09/19/17 20:59 Hydralazine HCl (HydrALAZINE INJ) 10 mg Q6 PRN IV. 08/20/17 14:15 09/19/17 14:14 Cefazolin Sodium 1000 mg/Dextrose 55 ml @ 100 mls/hr Q8H IV 08/21/17 16:00 08/22/17 15:59 08/22/17 09:55 100 MLS/HR Magnesium Hydroxide (Milk Of Magnesia Susp) 30 ml Q6H PRN PO 08/21/17 09:30 09/20/17 09:29 Docusate Sodium (coLACE CAP) 100 mg BID PO 08/21/17 21:00 09/20/17 20:59 08/22/17 09:31 100 MG Aspirin (Ecotrin Tab) 81 mg BID PO 08/21/17 21:00 09/20/17 20:59 08/22/17 09:31 81 MG (Polly Daugherty PA-C) Objective Vital Signs Date Time Temp Pulse Resp B/P (MAP) Pulse Ox O2 Delivery O2 Flow Rate FiO2 08/22/17 07:40 Room Air 08/22/17 07:15 36.3 70 18 100/73 (82) 97 Room Air 08/22/17 03:32 36.4 75 16 120/65 (83) 96 Room Air 08/21/17 22:50 36.5 85 16 106/72 (83) 98 Room Air 08/21/17 19:21 36.6 92 18 118/75 (89) 98 Room Air 08/21/17 19:05 Room Air 08/21/17 15:44 36.5 92 18 117/78 (91) 97 Room Air 08/21/17 13:10 36.7 92 18 110/66 (81) 97 Room Air 08/21/17 12:18 36.5 90 18 126/81 (96) 96 Nasal Cannula 2.0 (Polly Daugherty PA-C) Physical Exam General Appearance: no apparent distress Eyes: PERRL ENT: hearing grossly normal Neck: supple Respiratory/Chest: lungs clear, no respiratory distress, no accessory muscle use Cardiovascular: regular rate, rhythm Abdomen: normal bowel sounds, non tender, soft Extremities: no pedal edema, no calf tenderness, + pertinent finding (TEDs on) Neurologic/Psychiatric: alert, normal mood/affect Skin: normal color, warm/dry, no rash (Polly Daugherty, SUZI-C) Laboratory Results Last 24 Hours Test 08/22/17 05:16 White Blood Count 7.86 K/uL Red Blood Count 3.49 M/uL Hemoglobin 10.2 g/dL Hematocrit 31.6 % Mean Corpuscular Volume 90.5 fL Mean Corpuscular Hemoglobin 29.2 pg Mean Corpuscular Hemoglobin Concent 32.3 g/dl RDW Standard Deviation 53.2 fL RDW Coefficient of Variation 16.0 % Platelet Count 166 K/uL Mean Platelet Volume 9.7 fL Sodium Level 140 mmol/L Potassium Level 4.0 mmol/L Chloride Level 108 mmol/L Carbon Dioxide Level 25 mmol/L Anion Gap 7.0 mmol/L Blood Urea Nitrogen 13 mg/dl Creatinine 0.73 mg/dl Est Creatinine Clear Calc Drug Dose 63.1 ml/min Estimated GFR () 96.0 Estimated GFR (Non- 82.8 BUN/Creatinine Ratio 17.3 Random Glucose 100 mg/dl Calcium Level 8.0 mg/dl (Polly Daugherty, PA-C) Assessment and Plan Mr. 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 Mechanical fall with R intertrochanteric Fx s/p ORIF by Dr. Desouza on 08/21: - Pain management, PT/OT, and DVT prophylaxis as per ortho - Follow postop CBC and PRP- STABLE - O2 protocol, wean as tolerated. Encouraged incentive spirometer Interstitial Fibrosis and pulmonary HTN- STABLE Recurrent Cholangitis: Ursodiol 300 mg BID CKD, stage II- baseline Cr 0.8-1.0- STABLE BPH: Flomax 0.4 mg HS CREST variant Scleroderma: STABLE GABE- STABLE GI prophylaxis: Protonix DVT Prophylaxis: ASA 81 mg BID as per ortho Code Status: FULL RESUSCITATION Disposition: Hoping for [facility] at discharge- medically stable for discharge pending placement- PT/OT and CM consulted (Polly Daugherty, PA-C) I agree with the above progress note. I examined patient and discussed case and plan with patient and APC. My physical exam did not vary from APC's exam of patient. (Ramon Maza M.D.)
[2017-08-22 14:55] VITALS: BP 98/62; PULSE 69; TEMP 36.4; O2SAT 99
[2017-08-22] MEDS: TAMSULOSIN HCL 0.4 MG CAP PO SCH (20:44)
[2017-08-22] MEDS: DOCUSATE SODIUM/SENNA 50/8.6MG TAB PO SCH (20:45)
[2017-08-22 22:59] VITALS: BP 112/64; PULSE 78; TEMP 36.5; O2SAT 100
[2017-08-23 05:55] LABS: HEMATOCRIT 28.3 % (42-52); MEAN CELL VOLUME 90.1 fL (80-100); MEAN CORPUSCULAR HEMOGLOBIN 29.6 pg (25-34); MEAN CORPUSCULAR HGB CONC 32.9 g/dl (32-36); MEAN PLATELET VOLUME 9.2 fL (7.4-10.4); PLATELET COUNT 149 K/uL (130-400); RED BLOOD COUNT 3.14 M/uL (4.7-6.1); WHITE BLOOD COUNT 6.62 K/uL (4.8-10.8)
[2017-08-23 06:23] LABS: BUN/CREATININE RATIO 15.7 (10-20); CREATININE 0.86 mg/dl (0.60-1.40); POTASSIUM 3.8 mmol/L (3.5-5.1)
[2017-08-23 06:29] VITALS: BP 129/75; PULSE 95; TEMP 36.5; O2SAT 95
[2017-08-23 07:25] VITALS: BP 126/65; PULSE 71
[2017-08-23] MEDS: ASPIRIN 81 MG ECTAB PO SCH (08:03)
[2017-08-23] MEDS: DOCUSATE SODIUM 100 MG CAP PO SCH (08:03)
[2017-08-23] MEDS: MULTIVITAMIN TAB PO SCH (08:04)
[2017-08-23] MEDS: PANTOprazole SOD 40 MG TAB PO SCH (08:05)
[2017-08-23] MEDS: URSODIOL 300 MG CAP PO SCH (08:06)
[2017-08-23] MEDS: LIDODERM (LIDOCAINE) PATCH 5% TD SCH (08:07)
--- NOTE | 2017-08-23 09:58 | Hospitalist Progress Note ---
Hospitalist Progress Note Date of Service Aug 23, 2017. Subjective Pt evaluation today including: conversation w/ patient, physical exam, chart review, lab review, review of studies, review of inpatient medication list Voiding: no voiding problems Mr. Watts is seated in a chair having just worked with physical therapy. He feels very tired from the exertion and it was quite difficult getting used to not bearing weight on his right leg. Otherwise he feels well, his pain is well controlled. He had a small bowel movement this morning and today he has had prune juice, MOM and docusate to encourage further movement. Constitutional: No fever, No chills Respiratory: No cough, No sputum, No shortness of breath Cardiovascular: + palpitations (briefly this morning but not since), No chest pain Abdomen: + constipation, No pain, No nausea, No vomiting, No diarrhea Male : No dysuria All Other Systems: Reviewed and Negative Objective Vital Signs Date Time Temp Pulse Resp B/P (MAP) Pulse Ox O2 Delivery O2 Flow Rate FiO2 08/23/17 07:40 Room Air 08/23/17 07:25 71 126/65 (85) 08/23/17 06:29 36.5 95 16 129/75 (93) 95 Room Air 08/23/17 00:40 Room Air 08/22/17 22:59 36.5 78 16 112/64 (80) 100 Room Air 08/22/17 15:35 Room Air 08/22/17 14:55 36.4 69 18 98/62 (74) 99 Room Air Physical Exam Notes: General: no distress Eyes: normal inspection, PERLL Respiratory: chest non tender, clear to auscultation, normal breath sounds, no respiratory distress, no accessory muscle use Cardiac: handful of irregular beats in an overall regular rate and rhythm, no rub or gallop, no murmur, no edema, no jvd GI/: active bowel sounds, no abd pain or tenderness, soft, non distended Extremities: normal range of motion, normal strength, non tender Neuro/Psych: alert and oriented x 3, normal mood and affect Skin: normal color, dry Laboratory Results Last 24 Hours Test 08/23/17 05:40 White Blood Count 6.62 K/uL Red Blood Count 3.14 M/uL Hemoglobin 9.3 g/dL Hematocrit 28.3 % Mean Corpuscular Volume 90.1 fL Mean Corpuscular Hemoglobin 29.6 pg Mean Corpuscular Hemoglobin Concent 32.9 g/dl RDW Standard Deviation 53.3 fL RDW Coefficient of Variation 16.1 % Platelet Count 149 K/uL Mean Platelet Volume 9.2 fL Sodium Level 142 mmol/L Potassium Level 3.8 mmol/L Chloride Level 109 mmol/L Carbon Dioxide Level 26 mmol/L Anion Gap 7.0 mmol/L Blood Urea Nitrogen 14 mg/dl Creatinine 0.86 mg/dl Est Creatinine Clear Calc Drug Dose 53.6 ml/min Estimated GFR () 89.7 Estimated GFR (Non- 77.4 BUN/Creatinine Ratio 15.7 Random Glucose 96 mg/dl Calcium Level 8.0 mg/dl Assessment and Plan Mr. 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 Desouza. . Mechanical fall with R intertrochanteric Fx s/p ORIF by Dr. Desouza on 08/21: - Pain management, PT/OT, and DVT prophylaxis as per ortho - Follow postop CBC and PRP- STABLE - O2 protocol, wean as tolerated. Encouraged incentive spirometer Heart palpitations - felt this morning at 0730 and only lasted a few seconds. No chest pain or shortness of breath associated. ECG showed NSR, electrolytes WNL Interstitial Fibrosis and pulmonary HTN- STABLE Recurrent Cholangitis: Ursodiol 300 mg BID CKD, stage II- baseline Cr 0.8-1.0- STABLE BPH: Flomax 0.4 mg HS CREST variant Scleroderma: STABLE GABE- STABLE GI prophylaxis: Protonix DVT Prophylaxis: ASA 81 mg BID as per ortho Code Status: FULL RESUSCITATION Disposition: Hoping for [facility] at discharge- medically stable for discharge pending placement- PT/OT and CM consulted
--- NOTE | 2017-08-23 10:07 | Clinical Documentation Query ---
CLINICAL DOCUMENTATION QUERY 86-year-old male who presents to the ED with a chief complaint of hip pain after a ground-level fall. In your clinical opinion is this patient being managed for: (x ) Acute blood loss anemia in the setting of s/p surgical intervention ( ) Not Agree ( ) Other explanation of clinical findings (Please Explain) ( ) Unable to determine (Please Define) ( ) Need to Discuss The medical record reflects the following clinical findings, treatment, and risk factors. Clinical Indicators: 4 gm drop in hgb (13.4 trending down to 9.3) Treatment: type and cross, IV hydration, serial CBCs, I&Os Risk Factors: Age, s/p surgical intervention Please clarify and document your clinical opinion in the progress notes and discharge summary. Terms such as "probable", "suspected", "likely", "questionable", "possible", or "still to be ruled out" are acceptable. IF IN AGREEMENT, YOU MUST DOCUMENT ABOVE DIAGNOSTIC STATEMENT IN DAILY PROGRESS NOTES AND DISCHARGE SUMMARY. This document is not part of the patient's record. Thank You, Bette Umaña RN [phone]
[2017-08-23] MEDS ORDERED: ULT50X PO (12:13)
--- NOTE | 2017-08-23 12:16 | Discharge Instructions ---
Discharge Instructions Date of Service Aug 23, 2017. Admission Reason for Admission: Intertrochanteric Fracture Of Right Hip Discharge Discharge Diagnosis / Problem: intertrochanteric fracture ORIF Discharge Goals Goal(s): Decrease discomfort, Improve function Activity Recommendations Activity Limitations: resume your previous activity Lifting Limitations: gradually increase as tolerated . Current Hospital Diet Patient's current hospital diet: Regular Diet Discharge Diet Recommended Diet: Regular Diet Procedures Procedures Performed: Open Reduction Internal Fixation Right 4-Part Intertrochanteric Hip Fracture Pending Studies Studies pending at discharge: no List of pending studies: Hip x ray Chest x ray Medical Emergencies . Who to Call and When: Medical Emergencies: If at any time you feel your situation is an emergency, please call 911 immediately. . Non-Emergent Contact Non-Emergency issues call your: Primary Care Provider Call Non-Emergent contact if: you have a fever, your pain is not controlled, your pain is worsening . . "Provider Documentation" section prepared by Caryl Miranda. . VTE Core Measure Inpt VTE Proph given/why not?: SCD's
[2017-08-23] MEDS ORDERED: ASPEC81 PO (12:24)
--- NOTE | 2017-08-23 12:32 | Discharge Summary ---
Discharge Summary Date of Service Aug 23, 2017. Discharge Summary Admission Date: Aug 20, 2017 at 14:02 Discharge Date: Aug 23, 2017 Discharge Disposition: Rehab Principal Diagnosis: Fall and intertrochanteric fracture with ORIF right hip Immunizations: Have You Had Influenza Vaccine: N/A History of Tetanus Vaccine?: Yes Tetanus Immunization Date: May 05, 2013 History of Pneumococcal: Yes Pneumococcal Date: Sep 04, 2012 History of Hepatitis B Vaccine: No Procedures: ORIF 08/21 Hip X ray IMPRESSION: Expected postsurgical changes status post intramedullary nail fixation of the intertrochanteric right femur fracture. Chest X ray IMPRESSION: Chronic interstitial lung disease similar to the prior study. No acute findings Consultations: Dr. Desouza orthopedics Medication Reconciliation New Medications: Aspirin (Aspirin EC Low Dose) 81 Mg Ectab 81 MG PO BID for 30 Days, #60 TABS Tramadol HCl (Tramadol HCl) 50 Mg Tab 50 MG PO Q4H PRN for Pain for 3 Days, #18 TAB Continued Medications: Enteral Nutrition Formula (Ensure Plus Vanilla) 1 Can Liqd 1 CAN PO DAILY, CAN Folic Acid (Folvite) 1 Mg Tab 1 MG PO QAM, TAB Multivitamin (Multivitamin) Tab 1 TAB PO QAM, TAB Omeprazole (Omeprazole) 20 Mg Tab 20 MG PO BID Tamsulosin Hcl (Flomax) 0.4 Mg Cap 0.4 MG PO HS, CAP Ursodiol (Actigall) 300 Mg Cap 300 MG PO BID, CAP Zoledronic Acid (Reclast) Unknown Strength Inj 1 DOSE YEARLY Discharge Exam Review of Systems: Constitutional: No chills, No sweats Respiratory: No cough, No sputum, No shortness of breath Cardiovascular: No chest pain Abdomen: No pain, No nausea, No vomiting, No diarrhea Physical Exam: Cardiovascular: regular rate, rhythm (few extra beats otherwise regular), no edema, no gallop, no murmur Abdomen / GI: normal bowel sounds, non tender, soft Extremities: + pertinent finding (right hip dressing dry and intact) Neurologic/Psychiatric: alert, normal mood/affect, oriented x 3 Skin: normal color, warm/dry Hospital Course Mr. 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 Desouza. . Mechanical fall with R intertrochanteric Fx s/p ORIF by Dr. Desouza on 08/21: - Pain management, PT/OT, and DVT prophylaxis as per ortho - Follow postop CBC and PRP- STABLE - O2 protocol, wean as tolerated. Encouraged incentive spirometer Heart palpitations - felt this morning at 0730 and only lasted a few seconds. No chest pain or shortness of breath associated. ECG showed NSR, electrolytes WNL Interstitial Fibrosis and pulmonary HTN- STABLE Recurrent Cholangitis: Ursodiol 300 mg BID CKD, stage II- baseline Cr 0.8-1.0- STABLE BPH: Flomax 0.4 mg HS CREST variant Scleroderma: STABLE GABE- STABLE GI prophylaxis: Protonix DVT Prophylaxis: ASA 81 mg BID as per ortho Code Status: FULL RESUSCITATION Disposition: [facility] at discharge Total Time Spent: Less than 30 minutes This includes examination of the patient, discharge planning, medication reconciliation, and communication with other providers. Discharge Instructions Please refer to the electronic Patient Visit Report (Discharge Instructions) for additional information.
--- NOTE | 2017-08-23 12:53 | Consultant Recommendations ---
Whitesmith Recommendations Date of Service Aug 23, 2017. Whitesmith Recommendations [facility] DISCHARGE INSTRUCTIONS: HIP FRACTURE SELF CARE INSTRUCTIONS: A. You are to ambulate with a walker or crutches for approximately 6 weeks. B. You are PARTIAL WEIGHT BEARING on your operative lower extremity for at least 6 weeks. C. Wear low heeled shoes with non-slip soles D. Be sure that your floors are free of things that could trip you throw rugs, electrical cords, and small objects. Avoid wet and waxed floors, especially with crutches/walker/cane. E. Try to walk several times a day with rest periods between. F. You may shower 48 hours after surgery and get the incision area wet, but DO NOT soak or submerge incision area in water. (No baths, swimming pools, hot tubs ) G. Standard justina/no adhesive- Please keep incision clean and dry. You may shower. [place] should be removed in 10-14 days at the office. This appointment is likely already scheduled for you. Please call if any increased redness, drainage, or swelling. You CAN shower with this on. If incision is leaking through the dressing, please call the office . H. Do NOT apply soap or any ointment/lotions directly over incision. I. You may use ice as needed to operative site. SPECIAL CARE INSTRUCTIONS: VERY IMPORTANT TO READ AND REVIEW A. You may be at risk for phlebitis or blood clots. a. Wear surgical stockings (OLAF hose) for 2 weeks after surgery to improve circulation and reduce swelling. b. Take ASPIRIN 81mg bid for 4 weeks or as directed. This is your blood thinner. c. If you are on Coumadin- you will have daily/weekly blood work to monitor your levels. This will be done by either your family physician/ customer success director (if you are on Coumadin chronically) versus your orthopedic surgeon. Expect a phone call the day of or the day after your blood work is drawn to adjust your dose accordingly. B. There are a few signs you need to watch for after you are home. Call [facility] at [phone] if you experience any of the following: a. If you have a temperature of 101 degrees or higher. b. Sudden increase in pain in your hip not relieved by rest or pain medication. c. Any fluid or drainage from the incision; redness of the incision. d. Shortness of breath or chest pain. B. Please call [facility] at [phone] if you have any questions or concerns about your operation or recovery. C. Call your physician if: a. Temperature is greater than 101 degrees (F). b. Pain is not relieved by prescribed pain medications. c. Increase drainage or redness from incision. d. Unanswered questions or concerns. D. Pain Medication: a. You will be prescribed pain medication upon discharge that should last till your first post-operative appointment. b. If you experience nausea and/or skin rash, discontinue this medication and contact our office for an alternative medication. c. Caution- narcotic pain medication can cause constipation. FOLLOW UP VISIT: Please call [facility] at [phone] to schedule a follow up appointment 10-14 days from the date of your surgery date.
--- NOTE | 2017-08-23 12:54 | Orthopedic Progress Note ---
Orthopedic Progress Note Date of Service Aug 23, 2017. Subjective Post OP Day: 2 Reports: feeling well, Denies: chest pain, SOB, nausea / vomiting, light headedness, calf pain Objective calves soft nontender, N/V intact, hip located, capillary refill less than 2 sec., dressing C/D/I, incision C/D/I, A&O x3, toes mobile MODERATE EDEMA IN UPPER THIGH. SOFT, NT Date Time Temp Pulse Resp B/P (MAP) Pulse Ox O2 Delivery O2 Flow Rate FiO2 08/23/17 07:40 Room Air 08/23/17 07:25 71 126/65 (85) 08/23/17 06:29 36.5 95 16 129/75 (93) 95 Room Air 08/23/17 00:40 Room Air 08/22/17 22:59 36.5 78 16 112/64 (80) 100 Room Air 08/22/17 15:35 Room Air 08/22/17 14:55 36.4 69 18 98/62 (74) 99 Room Air Laboratory Results 24 Hours: Test 08/23/17 05:40 Hematocrit 28.3 % Hemoglobin 9.3 g/dL Assessment & Plan Assessment: POD #2, Right hip ORIF Intertrochanteric Hip Fracture 1. Interstitial Fibrosis 2. Pulmonary HTN 3. CREST variant Scleroderma 4. CKD Stage III 5. GABE 6. BPH 7. Recurrent Cholangitis 8. Biliary Stenosis S/P Stent Plan: PT/ OT- PWB w walker DVT proph- ASA Disposition as per primary team- ACCEPTED AT [facility]. STABLE FOR TRANSFER TODAY. SEE ELECTRICAL ENGINEERING PROFESSOR RECOMMENDATIONS FOR FURTHER INSTRUCTIONS. Inhouse Planning Pain Management: Ultram, Morphine, PO Tylenol DVT Prophylaxis: TEDs, SCDs, ASA Discharge Planning Discharge Planning: uncertain
[2017-08-23 13:35] VITALS: BP 126/65; PULSE 71; TEMP 36.5; O2SAT 95
--- NOTE | 2017-08-23 16:31 | Anesthesiology Progress Note ---
Anesthesia Post Op Note Date & Time Aug 23, 2017 at 16:30 Vital Signs Vital Signs Past 12 Hours Date Time Temp Pulse Resp B/P (MAP) Pulse Ox O2 Delivery O2 Flow Rate FiO2 08/23/17 13:35 36.5 71 16 95 Room Air 08/23/17 07:40 Room Air 08/23/17 07:25 71 126/65 (85) 08/23/17 06:29 36.5 95 16 129/75 (93) 95 Room Air Notes Mental Status: alert / awake / arousable, participated in evaluation Pt Amnestic to Procedure: Yes Nausea / Vomiting: adequately controlled Pain: adequately controlled Airway Patency, RR, SpO2: stable & adequate BP & HR: stable & adequate Hydration State: stable & adequate Anesthetic Complications: no major complications apparent
[2017-09-02] MEDS ORDERED: ACET-1311 PO (07:56)
== END 2017-08-23 14:25 | DRG 481 ==
LOC: EDBD 11:07 → C.EDA 11:08 → C.3E 14:02 → ENRESERV 14:19
PROVIDERS: ADMIT Hospitalist; ATTEND Internal Medicine
PROC: 0QS606Z Reposition Right Upper Femur with Intramedullary Internal Fixation Device, Open Approach (ICD-10-PCS; principal; 2017-08-21 07:30)
DX: S72.141A Displaced intertrochanteric fracture of right femur, initial encounter for closed fracture (principal); K83.0 Cholangitis; D62 Acute posthemorrhagic anemia; W01.0XXA Fall on same level from slipping, tripping and stumbling without subsequent striking against object, initial encounter; Y92.099 Unspecified place in other non-institutional residence as the place of occurrence of the external cause; R00.2 Palpitations; J84.10 Pulmonary fibrosis, unspecified; I27.20 Pulmonary hypertension, unspecified; N18.2 Chronic kidney disease, stage 2 (mild); M34.1 CR(E)ST syndrome; N40.0 Benign prostatic hyperplasia without lower urinary tract symptoms; D50.9 Iron deficiency anemia, unspecified; Z96.651 Presence of right artificial knee joint; Z96.89 Presence of other specified functional implants; Z79.83 Long term (current) use of bisphosphonates; Z79.899 Other long term (current) drug therapy

== ENCOUNTER 2017-10-10 00:41 | Emergency (ER) | payer OTHER ==
[~2017-10-10] VITALS: Ht 170.2 cm; Wt 68.0 kg
[~2017-10-10 00:41] MED LIST changes: +ACET-1311 PO; +ASPEC81 PO; -CPR500 PO; -METR-163 PO; +ULT50X PO
[2017-10-10 00:44] VITALS: TEMP 36.6; O2SAT 97; Ht 170.2 cm; Wt 68.0 kg
[2017-10-10 00:49] VITALS: PULSE 80
[2017-10-10] MEDS ORDERED: POLY335019 PO (01:09)
[2017-10-10] MEDS ORDERED: FERR1TAB13 PO (01:09)
[2017-10-10 01:10] VITALS: BP 150/78
--- NOTE | 2017-10-10 01:19 | EMERGENCY ROOM VISIT NOTE ---
History Report prepared by Wale: Sarah Billings Under the Supervision of: Dr. Jad Menendez M.D. First contact with patient: 00:43 Chief Complaint: LEG PAIN,LEG INJURY Stated Complaint: LEG INJURY History of Present Illness The patient is an 87 year old male who presents to the Emergency Room with complaints of an episode of leg injury occurring 3 days ago. The patient states that he was trying to get to the walker when he fell. He states that he landed on his knee and his foot got stuck under something. The patient states that he hasn't walked for a while because he broke his hip a few months ago. The patient complains of right ankle pain. The patient denies hurting his hip in the fall, hurting his knee, and hitting his head. He had an x-ray done yesterday. It was reported today and so the physician at his facility sent him here for evaluation. He has not had any reinjury. Source of History: patient Onset: 3 days ago Position: leg (right) Quality: other (global) Timing: other (episode) Modifying Factors (Worsening): movement Associated Symptoms: No LOC, No headache, No neck pain Note: The patient complains of right ankle pain. The patient denies hurting his hip in the fall, hurting his knee, and hitting his head. Review of Systems See HPI for pertinent positives & negatives. A total of 10 systems reviewed and were otherwise negative. Past Medical & Surgical Medical Problems: (1) Abdominal discomfort (2) Acid reflux (3) Anemia (4) bactremia with G neg , source is likely biliary track infection, (5) Constipation (6) CREST syndrome (7) Elevated liver enzymes (8) Nausea & vomiting (9) Nausea and vomiting (10) Nutritional deficiency (11) Pancreatitis (12) Pancreatitis (13) Repair of inguinal hernia (14) RUQ abdominal pain (15) Status post open reduction with internal fixation of fracture Surgical Problems: (1) History of appendectomy (2) History of cholecystectomy (3) History of knee replacement Family History Alzheimers Disease Anemia Breast Cancer Coronry Heart Disease Diabetes mellitus Stroke Social History Smoking Status: Never Smoker Alcohol Use: none Drug Use: none Marital Status: Housing Status: lives with family Occupation Status: retired Current/Historical Medications Scheduled Aspirin (Aspirin EC Low Dose), 81 MG PO BID Ferrous Sulfate (Kp Ferrous Sulfate), 1 TAB PO BID Folic Acid (Folvite), 1 MG PO QAM Multivitamin (Multivitamin), 1 TAB PO QAM Omeprazole (Omeprazole), 20 MG PO BID Polyethylene Glycol 3350 (Miralax), 8.5 GM PO DAILY Tamsulosin Hcl (Flomax), 0.4 MG PO HS Ursodiol (Actigall), 300 MG PO BID Scheduled PRN Acetaminophen (Tylenol), 650 MG PO Q8 PRN for Pain Allergies Coded Allergies: No Known Allergies (Unverified , 10/10/17) Physical Exam Vital Signs Date Time Temp Pulse Resp B/P (MAP) Pulse Ox O2 Delivery O2 Flow Rate FiO2 10/10/17 01:10 150/78 10/10/17 00:49 80 10/10/17 00:44 36.6 80 18 162/82 97 Room Air Physical Exam Constitutional: Vital signs reviewed. Eyes: Pupils are equal round reactive to light. Conjunctiva are noninjected. ENT: Pharynx is clear without erythema or exudate. Mucous membranes are moist. Neck supple without meningeal signs. No midline tenderness to cervical spine. Respiratory: Clear to auscultation bilaterally. Breath sounds are equal bilaterally. Cardiovascular: Regular rate and rhythm. No rubs or gallops. GI: Soft, nondistended and nontender. Bowel sounds are present. Musculoskeletal: Soft tissue swelling and tenderness to the lateral malleolus of the right ankle without tenderness to the foot. Normal distal pulses. No knee tenderness. Integumentary: No cyanosis. Neurological: The patient is awake and alert. No focal deficits. Psychiatric: Normal affect. Medical Decision & Procedures ER Provider Diagnostic Interpretation: Radiology results as stated below per my review and the radiologist's interpretation: ANKLE AP and LAT 2V, RIGHT Results: Radiographic views of the right ankle are performed demonstrating mild osteopenia with a linear recency within the subcortical lateral fibula suggestive of fracture. There is normal osseous alignment. There are mild degenerative changes of the ankle joint and visualized midfoot. There are no suspicious lytic or sclerotic lesions. No joint effusion. No focal soft tissue abnormality. Conclusion: Osteopenia with minimally displaced fracture of the distal fibula. Electronically Davin Murphy M.D. /[id number] *:55:10 PM EST. KNEE AP OR LAT 1-2V, RIGHT Results: Radiographic views of the right knee demonstrates mild demised osteopenia with a stable total knee arthroplasty without hardware complication. No acute fracture or dislocation. No suspicious lytic or sclerotic lesions. No joint effusion of focal soft tissue swelling. Conclusion: Stable right knee arthroplasty. Electronically Davin Murphy M.D. [id number] *:55:10 PM EST. ED Course 0044: The patient was evaluated in room B6. A complete history and physical exam was performed. I discussed tonight's findings with him. He verbalized agreement of the treatment plan. The patient was discharged home. 0111: I reevaluated the patient and he is neurovascularly intact after splint placement. Medical Decision This is an 87-year-old male who presents with a right distal fibular fracture. I did perform a limited focused review of portions of the patient's old chart on the electronic medical record. The patient was here in late July for a fall and right hip fracture that was repaired by Dr. Desouza. I did evaluate patient as noted above. I did review the x-ray report from his x -ray that was done yesterday. He does have a minimally displaced distal fibular fracture. He has had no reinjury and I did not feel repeat radiographs were indicated. He is neurovascularly intact. He was placed in a Ortho-Glass posterior mold with stirrup. I did check the splint after was placed by the [facility]. He is neurovascularly intact after splint placement. He was discharged back to his residence and will follow with [facility]. Medication Reconcilliation Current Medication List: was personally reviewed by me Blood Pressure Screening Patient's blood pressure: Elevated blood pressure Blood pressure disposition: Referred to PCP Impression Primary Impression: Ankle fracture, right Scribe Attestation The scribe's documentation has been prepared under my direct and personally reviewed by me in its entirety. I confirm that the note above accurately reflects all work, treatment, procedures, and medical decision making performed by me. Departure Information Dispostion Home / Self-Care Referrals Román Miranda M.D. (PCP) Forms HOME CARE DOCUMENTATION FORM, IMPORTANT VISIT INFORMATION Patient Instructions My [facility] Additional Instructions You have been examined and treated today on an emergency basis only. This is not a substitute for, or an effort to provide, complete comprehensive medical care. It is impossible to recognize and treat all injuries or illnesses in a single emergency department visit. It is therefore important that you follow up closely with [facility]. Call as soon as possible for an appointment. Return for worsening symptoms or if you develop numbness or weakness in your toes or any other concerning symptoms. Problem Qualifiers Primary Impression: Ankle fracture, right Encounter type: initial encounter Fracture type: closed Qualified Codes: S82.891A - Other fracture of right lower leg, initial encounter for closed fracture
== END 2017-10-10 01:10 | disposition home or self-care (01) ==
LOC: EDBD 00:41 → C.EDB 00:42
DX: S82.451A Displaced comminuted fracture of shaft of right fibula, initial encounter for closed fracture (principal); W01.0XXA Fall on same level from slipping, tripping and stumbling without subsequent striking against object, initial encounter; R03.0 Elevated blood-pressure reading, without diagnosis of hypertension; K21.9 Gastro-esophageal reflux disease without esophagitis; Z82.0 Family history of epilepsy and other diseases of the nervous system; Z83.2 Family history of diseases of the blood and blood-forming organs and certain disorders involving the immune mechanism; Z82.49 Family history of ischemic heart disease and other diseases of the circulatory system; Z83.3 Family history of diabetes mellitus; Z79.82 Long term (current) use of aspirin

== ENCOUNTER 2017-10-29 10:22 | Day surgery (SDC) | payer OTHER ==
[2017-09-02 07:17] VITALS: Ht 162.6 cm; Wt 66.8 kg
--- NOTE | 2017-09-02 09:30 | PAT Medication Instructions ---
Service Date Sep 02, 2017. Current Home Medication List Acetaminophen (Tylenol), 650 MG PO Q6 PRN for Pain Aspirin (Aspirin EC Low Dose), 81 MG PO BID Enteral Nutrition Formula (Ensure Plus Vanilla), 1 CAN PO DAILY Folic Acid (Folvite), 1 MG PO QAM Multivitamin (Multivitamin), 1 TAB PO QAM Omeprazole (Omeprazole), 20 MG PO BID Tamsulosin Hcl (Flomax), 0.4 MG PO HS Tramadol HCl (Tramadol HCl), 50 MG PO Q4H PRN for Pain Ursodiol (Actigall), 300 MG PO BID Zoledronic Acid (Reclast), 1 DOSE YEARLY Medication Instructions For Your Scheduled Surgery - Check with surgeon and prescribing physician for instructions: Aspirin (Aspirin EC Low Dose), 81 MG PO BID - Continue as directed: Zoledronic Acid (Reclast), 1 DOSE YEARLY - Hold the following medications the morning of surgery: Folic Acid (Folvite), 1 MG PO QAM Multivitamin (Multivitamin), 1 TAB PO QAM Enteral Nutrition Formula (Ensure Plus Vanilla), 1 CAN PO DAILY Ursodiol (Actigall), 300 MG PO BID - Take the following medications the morning of surgery with a sip of water: Tramadol HCl (Tramadol HCl), 50 MG PO Q4H PRN for Pain (okay to take up to 4 hours prior to surgery if needed) Acetaminophen (Tylenol), 650 MG PO Q6 PRN for Pain(okay to take up to 4 hours prior to surgery if needed) Omeprazole (Omeprazole), 20 MG PO BID - Take the following medications as scheduled the night before surgery: Tramadol HCl (Tramadol HCl), 50 MG PO Q4H PRN for Pain (if needed) Acetaminophen (Tylenol), 650 MG PO Q6 PRN for Pain (if needed) Omeprazole (Omeprazole), 20 MG PO BID Tamsulosin Hcl (Flomax), 0.4 MG PO HS Ursodiol (Actigall), 300 MG PO BID If you have any questions please call us at [phone] or [phone] or [phone]
[~2017-10-29] VITALS: Ht 162.6 cm; Wt 66.8 kg
[~2017-10-29 10:22] MED LIST changes: +ATROPINE SULFATE 0.1 MG/ML 5ML SYR IV PRN; +CIPROFLOXACIN 400MG / 200ML D5W IV SCH; +EpHEDrine SULFATE INJ 50 MG/ML AMP IV PRN; +FENTANYL CITRATE INJ 50 MCG/1 ML 2 ML VIAL IV PRN; +FERR1TAB13 PO; -FOLI1TAB7 PO; +FOLI1TAB8 PO; +LACTATED RINGER'S 1000ML 1,000 ML IV SCH; -NUTR-977 PO; +ONDANSETRON INJ 2 MG/ML 2 ML VIAL IV PRN; +POLY335019 PO; -ULT50X PO; -ZOLE5INJ
[2017-10-29 10:56] VITALS: BP 158/67; PULSE 88; TEMP 36.3; O2SAT 94
[2017-10-29] MEDS ORDERED: CLIN150C PO (11:10)
[2017-10-29] MEDS ORDERED: Miralax PO (11:19)
[2017-10-29] MEDS ORDERED: PRAMCRE2 RE (11:19)
[2017-10-29] MEDS ORDERED: INDOMETHACIN 50 MG SUPP PR SCH (12:00)
[2017-10-29] MEDS ORDERED: PROPOFOL IV EMULSION 10 MG/ML 20 ML VIAL IV ONE (12:30)
[2017-10-29] MEDS ORDERED: MIDAZOLAM HCL 1 MG/ML 2ML VIAL ONE (12:30)
[2017-10-29] MEDS ORDERED: DEXAMETHASONE SOD INJ 4 MG/ML VIAL ONE (12:30)
[2017-10-29] MEDS ORDERED: FENTANYL CITRATE INJ 50 MCG/1 ML 2 ML VIAL ONE (12:30)
[2017-10-29] MEDS ORDERED: LIDOCAINE HCL 2% 2 ML VIAL (20MG/ML) ONE (12:30)
[2017-10-29] MEDS ORDERED: ONDANSETRON INJ 2 MG/ML 2 ML VIAL ONE (12:30)
--- NOTE | 2017-10-29 12:57 | Endo History and Physical ---
History & Physical Date of Service: Oct 29, 2017. Chief Complaint: Follow-up for cholangitis Referring Physician: Dr wyman History of Present Illness Patient with a history of recurrent cholangitis presenting for stent removal and repeat cholangiogram. Past Medical History Osteoporosis, Arthritis, Cancer, Hypertension, Liver Disease Past Surgical History Hx Cardiac Surgery: No Hx Abdominal Surgery: Yes (Multiple ERCP's, stent placements, Gallbladder removed) Hx Post-Op Nausea and Vomiting: No Hx Cancer Surgery: Yes (removal of skin ca) Hx Thoracic Surgery: No Hx Orthopedic: Yes (KNEE REPLACEMENT,right FX hip ) Hx Urinary Tract Surgery: No Social History Smoking Status: Never Smoker Hx Substance Use: No Hx Alcohol Use: Yes (1 DRINK / A WEEK) Allergies Coded Allergies: No Known Allergies (Unverified , 10/29/17) Current Medications Reported Home Medications Medications Dose Route/Sig Max Daily Dose Days Date Category Preparation H (Ibvgurlzk-Rnnsycfdelgjn-Ogqvxw) 1 Cre Cre 1 Appln RE Q8 PRN 10/29/17 Reported Cleocin (Clindamycin Hcl) 150 Mg Cap 600 Mg PO PRN 10/29/17 Reported Kp Ferrous Sulfate (Ferrous Sulfate) 325 Mg Tab 1 Tab PO BID 10/10/17 Reported Miralax (Polyethylene Glycol 3350) 1 Pow Pow 8.5 Gm PO DAILY 10/10/17 Reported Tylenol (Acetaminophen) 325 Mg Tab 650 Mg PO Q8 PRN 09/02/17 Reported Aspirin EC Low Dose (Aspirin) 81 Mg Ectab 81 Mg PO BID 30 08/23/17 Rx Flomax (Tamsulosin Hcl) 0.4 Mg Cap 0.4 Mg PO HS 01/26/17 Reported Actigall (Ursodiol) 300 Mg Cap 300 Mg PO BID 10/12/15 Reported Omeprazole 20 Mg Tab 20 Mg PO BID 07/01/13 Reported Multivitamin (Multivitamins) Tab 1 Tab PO QAM 07/01/13 Reported Folvite (Folic Acid) 1 Mg Tab 1 Mg PO QAM 07/01/13 Reported Vital Signs Weight (Kilograms): 66.82 Height (Feet): 5 Height (Inches): 4 Date Time Temp Pulse Resp B/P (MAP) Pulse Ox O2 Delivery O2 Flow Rate FiO2 10/29/17 10:56 36.3 88 20 158/67 (97) 94 Nasal Cannula Physical Exam General Appearance: no apparent distress Respiratory/Chest: Auscultation: deminished air movement Cardiovascular: Heart Auscultation: RRR, II/ CELINE Assessment and Plan Evaluation for recurrent gallstones. We've discussed the risks of the procedure to include bleeding, infection, perforation and pancreatitis. Given his history of scleroderma and a dilated bile duct he will be given a prophylactic course of antibiotics.
--- NOTE | 2017-10-29 13:54 | [facility] Post Operative Brief Note ---
Immediate Operative Summary Operative Date Oct 29, 2017. Pre-Operative Diagnosis Follow-up for cholangitis Post-Operative Diagnosis gallstones/stent removal Procedure(s) Performed Endoscopic Retrograde Cholangiopancreatogram Surgeon Dr. Magaly Moore Secretary Of State Surgeon(s) none Estimated Blood Loss 0mL Findings dilated common bile duct several gallstones removed Specimens Endoscopic Retrograde Cholangiopancreatogram Anesthesia General Complication(s) None Disposition Recovery Room / PACU
--- NOTE | 2017-10-29 13:55 | Discharge Instructions ---
Endoscopy Patient Instructions Date / Procedure(s) Performed Oct 29, 2017. ERCP Allergy Information Coded Allergies: No Known Allergies (Unverified , 10/29/17) Discharge Date / Findings Oct 29, 2017. Biliary stent removed Several gallstones removed Medication Instructions Reported Home Medications Medications Dose Route/Sig Max Daily Dose Days Date Category Preparation H (Bjulheiwk-Ydukkycycdukg-Frrsrl) 1 Cre Cre 1 Appln RE Q8 PRN 10/29/17 Reported Cleocin (Clindamycin Hcl) 150 Mg Cap 600 Mg PO PRN 10/29/17 Reported Kp Ferrous Sulfate (Ferrous Sulfate) 325 Mg Tab 1 Tab PO BID 10/10/17 Reported Miralax (Polyethylene Glycol 3350) 1 Pow Pow 8.5 Gm PO DAILY 10/10/17 Reported Tylenol (Acetaminophen) 325 Mg Tab 650 Mg PO Q8 PRN 09/02/17 Reported Aspirin EC Low Dose (Aspirin) 81 Mg Ectab 81 Mg PO BID 30 08/23/17 Rx Flomax (Tamsulosin Hcl) 0.4 Mg Cap 0.4 Mg PO HS 01/26/17 Reported Actigall (Ursodiol) 300 Mg Cap 300 Mg PO BID 10/12/15 Reported Omeprazole 20 Mg Tab 20 Mg PO BID 07/01/13 Reported Multivitamin (Multivitamins) Tab 1 Tab PO QAM 07/01/13 Reported Folvite (Folic Acid) 1 Mg Tab 1 Mg PO QAM 07/01/13 Reported Provider Instructions Activity Restrictions - No exercising or heavy lifting for 24 hours. - Do not drink alcohol the day of the procedure. - Do not drive a car or operate machinery until the day after the procedure. - Do not make any important decisions or sign important papers in 24 hours after the procedure. Following Day: - Return to full activity which may include returning to work/school. Diet clear liquid diet today regular diet on 10/30/17 Treatment For Common After Affects For mild abdominal pain, bloating, or excessive gas: - Rest - Eat lightly - Lie on right side Follow-Up Information Follow-up with Dr Moore in 4 to 6 months Cipro 400 mg Twice daily x 3 days Anesthesia Information What You Should Know You have had a procedure that required some medicine to reduce anxiety and discomfort. This treatment is called moderate sedation. After receiving the treatment, you may be sleepy, but you will be able to breathe on your own. The effects of the treatment may last for several hours. Follow these instructions along with Activity/Diet recommendations noted above: * Do NOT do anything where dizziness or clumsiness would be dangerous. * Rest quietly at home today, then you can be up and about tomorrow. * Have a responsible person stay with you the rest of today. * You may have had an I.V. today. If so, you may take the dressing off later today. Recommendations Call your doctor if: * Trouble breathing * Continuous vomiting for more than 24 hours * Temperature above 101 degrees * Severe abdominal pain or bloating * Pain not relieved by pain medicine ordered * There is increased drainage or redness from any incision * A large amount of rectal bleeding greater than 2-3 tablespoons. (If you had a polyp/s removed or have hemorrhoids, a small amount of blood - from the rectum is to be expected.) * You have any unanswered questions or concerns. IN THE EVENT OF A SERIOUS EMERGENCY, GO TO THE NEAREST EMERGENCY ROOM Your discharge instructions were prepared by provider Cornell Moore. Patient Instructions Signature Page Que Watts Patient (or Guardian) Signature/Date: I have read and understand the instructions given to me by my caregivers. Caregiver/RN/Doctor Signature/Date: The above-named patient and/or guardian has received patient instructions on this date. + Original Patient Signature Page (only) stays with chart. Please make copy for patient.
[2017-10-29] MEDS ORDERED: ONDANSETRON INJ 2 MG/ML 2 ML VIAL IV PRN (14:00)
--- NOTE | 2017-10-29 14:02 | GI REPORT ---
Procedure Date: 10/29/2017 1:19 PM Procedure: ERCP Indications: Follow-up of ascending cholangitis, Stent removal Medicines: General Anesthesia Complications: No immediate complications. Estimated blood loss: Minimal. Estimated Blood Loss: Estimated blood loss was minimal. Procedure: Pre-Anesthesia Assessment: - Prior to the procedure, a History and Physical was performed, and patient medications, allergies and sensitivities were reviewed. The patient's tolerance of previous anesthesia was reviewed. - The risks and benefits of the procedure and the sedation options and risks were discussed with the patient. All questions were answered and informed consent was obtained. - Patient identification and proposed procedure were verified prior to the procedure by the physician, the nurse and the showroom sales assistant. The procedure was verified in the procedure room. - Pre-procedure physical examination revealed no contraindications to sedation. - ASA Grade Assessment: III - A patient with severe systemic disease. - After reviewing the risks and benefits, the patient was deemed in satisfactory condition to undergo the procedure. - The anesthesia plan was to use general anesthesia. - Immediately prior to administration of medications, the patient was re-assessed for adequacy to receive sedatives. - The heart rate, respiratory rate, oxygen saturations, blood pressure, adequacy of pulmonary ventilation, and response to care were monitored throughout the procedure. - The physical status of the patient was re-assessed after the procedure. After obtaining informed consent, the scope was passed under direct vision. Throughout the procedure, the patient's blood pressure, pulse, and oxygen saturations were monitored continuously. The Scope was introduced through the mouth, and advanced to the duodenum and used to inject contrast into the bile duct. The ERCP was accomplished without difficulty. The patient tolerated the procedure well. Findings: A linoleum layer helper film of the abdomen was obtained. Surgical clips, consistent with previous cholecystectomy, were seen in the area of the right upper quadrant of the abdomen. One stent ending in the lower third of the main bile duct was seen. The esophagus was successfully intubated under direct vision without detailed examination of the pharynx, larynx, and associated structures, and upper GI tract. The upper GI tract was grossly normal. One biliary stent originating in the biliary tree was emerging from the major papilla. The stent was partially occluded. A biliary sphincterotomy had been performed. The sphincterotomy appeared open. The major papilla was located entirely within a diverticulum. One stent was removed from the biliary tree using a snare. The bile duct was deeply cannulated with the short-nosed traction sphincterotome (Omn 35) and 0.035 in loop guidewire. Contrast was injected. I personally interpreted the bile duct images. Contrast extended to the hepatic ducts. The main bile duct was diffusely dilated. The largest diameter was 14 mm. To discover objects, the biliary tree was swept with a 15 mm balloon starting at the bifurcation. Sludge was swept from the duct. Two stones were removed. No stones remained. The endoscope was withdrawn from the patient. Impression: - One partially occluded stent from the biliary tree was seen in the major papilla. - Prior biliary endoscopic sphincterotomy appeared open. - The major papilla was located entirely within a diverticulum. - One stent was removed from the biliary tree. - The entire main bile duct was dilated. - The biliary tree was swept. - Choledocholithiasis was found. Complete removal was accomplished by balloon extraction. Recommendation: - Discharge patient to home (ambulatory). - Clear liquid diet today. - Observe patient's clinical course following today's ERCP with therapeutic intervention. - Cipro (ciprofloxacin) 500 mg PO BID for 3 days. Cornell Moore D.O. Cornell Moore, 10/29/2017 2:01:58 PM This report has been signed electronically. Note Initiated On: 10/29/2017 1:19 PM I attest to the content of the Intraoperative Record and orders documented therein, exceptions below
--- NOTE | 2017-10-29 14:12 | DIAGNOSTIC IMAGING REPORT ---
ERCP BILIARY DUCTAL CLINICAL HISTORY: ERCP IN OR 10/29/17 COMPARISON STUDY: 07/22/2017 FLUOROSCOPY TIME: 55 seconds. FINDINGS: Retrograde opacification of a mildly distended common duct. Sweeping of the duct with balloon insufflation. This is followed by successful placement of the stent. IMPRESSION: Successful procedure with successful stent placement The above report was generated using voice recognition software. It may contain grammatical, syntax or spelling errors. Electronically signed by: Tha Kelsey M.D. 10/29/2017 2:10 PM Dictated Date/Time: 10/29/2017 2:09 PM
--- NOTE | 2017-10-29 14:29 | Anesthesiology Progress Note ---
Anesthesia Post Op Note Date & Time Oct 29, 2017 at 14:28 Vital Signs Pain Intensity: 0 Vital Signs Past 12 Hours Date Time Temp Pulse Resp B/P (MAP) Pulse Ox O2 Delivery O2 Flow Rate FiO2 10/29/17 14:20 61 15 136/74 99 Oxymask 5 10/29/17 14:10 66 15 125/76 99 Oxymask 5 10/29/17 14:00 36.2 69 12 111/65 98 Oxymask 5 10/29/17 10:56 36.3 88 20 158/67 (97) 94 Nasal Cannula Notes Mental Status: alert / awake / arousable, participated in evaluation Pt Amnestic to Procedure: Yes Nausea / Vomiting: adequately controlled Pain: adequately controlled Airway Patency, RR, SpO2: stable & adequate BP & HR: stable & adequate Hydration State: stable & adequate Anesthetic Complications: no major complications apparent
[2017-10-29 14:40] VITALS: BP 179/86; PULSE 59; TEMP 36.2; O2SAT 95
[2017-10-29 15:10] VITALS: BP 177/69; PULSE 59; TEMP 36.2; O2SAT 95
[2017-10-29 15:50] VITALS: BP 163/94; PULSE 59; O2SAT 95
== END 2017-10-29 16:06 | disposition home or self-care (01) ==
LOC: C.ACU 10:22
PROVIDERS: ATTEND Internal Medicine Gastroenterology
DX: K83.8 Other specified diseases of biliary tract (principal); K80.50 Calculus of bile duct without cholangitis or cholecystitis without obstruction; K86.89 Other specified diseases of pancreas; I10 Essential (primary) hypertension; K76.9 Liver disease, unspecified; M81.0 Age-related osteoporosis without current pathological fracture; M19.90 Unspecified osteoarthritis, unspecified site; Z79.899 Other long term (current) drug therapy; Z90.49 Acquired absence of other specified parts of digestive tract

== ENCOUNTER → 2018-02-01 | Outpatient (CLI) | payer OTHER ==
[~2018-02-01] MED LIST changes: -ATROPINE SULFATE 0.1 MG/ML 5ML SYR IV PRN; -CIPROFLOXACIN 400MG / 200ML D5W IV SCH; +CLIN150C PO; -EpHEDrine SULFATE INJ 50 MG/ML AMP IV PRN; -FENTANYL CITRATE INJ 50 MCG/1 ML 2 ML VIAL IV PRN; -LACTATED RINGER'S 1000ML 1,000 ML IV SCH; -ONDANSETRON INJ 2 MG/ML 2 ML VIAL IV PRN; +PRAMCRE2 RE
[2018-02-01 11:15] LABS: BASO % 0.6 %; BASO ABS # 0.03 K/uL (0-0.2); EOS % 5.8 %; EOS ABS # 0.31 K/uL (0-0.5); HEMATOCRIT 38.7 % (42-52); HEMOGLOBIN 12.7 g/dL (14.0-18.0); IG# 0.01 K/uL (0.00-0.02); LYMPH % 28.1 %; LYMPH ABS # 1.49 K/uL (1.2-3.4); MEAN CELL VOLUME 90.8 fL (80-100); MEAN CORPUSCULAR HEMOGLOBIN 29.8 pg (25-34); MEAN CORPUSCULAR HGB CONC 32.8 g/dl (32-36); MEAN PLATELET VOLUME 9.4 fL (7.4-10.4); MONO % 13.4 %; MONO ABS # 0.71 K/uL (0.11-0.59); NEUT % 51.9 %; NEUT ABS # 2.76 K/uL (1.4-6.5); PLATELET COUNT 218 K/uL (130-400); RED CELL DISTRIBUTION WIDTH CV 18.4 % (11.5-14.5); RED CELL DISTRIBUTION WIDTH SD 61.5 fL (36.4-46.3); WHITE BLOOD COUNT 5.31 K/uL (4.8-10.8)
[2018-02-01 11:50] LABS: ALBUMIN 3.5 gm/dl (3.4-5.0); ALT/SGPT 23 U/L (12-78); BLOOD UREA NITROGEN 22 mg/dl (7-18); CARBON DIOXIDE 29 mmol/L (21-32); CREATININE 0.96 mg/dl (0.60-1.40); GLUCOSE 90 mg/dl (70-99); POTASSIUM 3.9 mmol/L (3.5-5.1); SODIUM 140 mmol/L (136-145)
[2018-02-01 11:59] LABS: ALKALINE PHOSPHATASE 63 U/L (45-117); AST/SGOT 23 U/L (15-37); TOTAL PROTEIN 6.7 gm/dl (6.4-8.2); TRANSFERRIN 201 mg/dl (200-360)
== END | disposition home or self-care (01) ==
LOC: C.LAB 10:42
PROVIDERS: ATTEND Internal Medicine
DX: M34.1 CR(E)ST syndrome (principal); M81.0 Age-related osteoporosis without current pathological fracture; I27.20 Pulmonary hypertension, unspecified; K22.2 Esophageal obstruction; E53.8 Deficiency of other specified B group vitamins; S72.001A Fracture of unspecified part of neck of right femur, initial encounter for closed fracture; X58.XXXA Exposure to other specified factors, initial encounter; K83.0 Cholangitis; D50.9 Iron deficiency anemia, unspecified